=== PATIENT | female | born 1955 | race Caucasian/White ===

== ENCOUNTER 2017-01-19 18:57 | Inpatient (IN) | payer MEDICARE, OTHER ==
[~2017-01-19] VITALS: Ht 167.6 cm; Wt 88.1 kg
[~2017-01-19 18:57] MED LIST: METH40TA3 PO
[2017-01-19] MEDS ORDERED: METOCLOPRAMIDE 5 MG/ML, 2ML ONE (19:21)
[2017-01-19] MEDS ORDERED: MORPHINE SULFATE 4 MG/ML, 1ML ONE (19:21)
[2017-01-19] MEDS ORDERED: ONDANSETRON 2MG/ML, 2ML ONE ×2 (19:21→21:47)
[2017-01-19] MEDS ORDERED: MORPHINE SULFATE 4 MG/ML, 1ML IVPush PRN (19:30)
[2017-01-19] MEDS ORDERED: ONDANSETRON 2MG/ML, 2ML IVPush ONE (19:30)
[2017-01-19] MEDS ORDERED: METOCLOPRAMIDE 5 MG/ML, 2ML IVPush ONE (19:30)
[2017-01-19] MEDS ORDERED: SODIUM CHLORIDE 0.9% 1,000ML IVBOLUS ONE ×2 (19:30→20:30)
[2017-01-19] MEDS ORDERED: SODIUM CHLORIDE FLUSH 10ML SYR IVF ONE (19:30)
[2017-01-19 19:37] LABS: HEMATOCRIT 44.8 % (34.6-47.8); HEMOGLOBIN 14.7 g/dL (11.7-16.4); WHITE BLOOD COUNT 11.3 x10^3/uL (3.4-10)
[2017-01-19 19:49] LABS: ASPARTATE AMINO TRANSFERASE 21 U/L (15-37); BLOOD UREA NITROGEN 22 mg/dL (7-18)
[2017-01-19 19:54] LABS: IS PT STATUS REG ER OR PRE ER? YES
[2017-01-19] MEDS ORDERED: CLINDAMYCIN PMX 600MG/50ML 50 ML IVPB ONE (20:30)
[2017-01-19] MEDS ORDERED: CLINDAMYCIN PMX 600MG/50ML 50 ML ONE (20:34)
[2017-01-19] MEDS ORDERED: CEFTRIAXONE PMX 1GM/50ML 50 ML IV ONE (21:30)
[2017-01-19] MEDS ORDERED: CEFTRIAXONE PMX 1GM/50ML 50 ML ONE (21:48)
[2017-01-19] MEDS ORDERED: ENALAPRILAT 1.25 MG/ML, 2ML IVPush PRN (22:00)
[2017-01-19] MEDS ORDERED: VANCOMYCIN PER PHARMACY MC PRN (22:00)
[2017-01-19] MEDS: ONDANSETRON 2MG/ML, 2ML IVPush PRN (22:03)
[2017-01-19] MEDS: AMPICILLIN/SULBACTAM 3 GM in SODIUM CHLORIDE 0.9% 100 ML IV SCH (22:38)
[2017-01-19] MEDS: SODIUM CHLORIDE 0.9% 1,000 ML IV SCH (23:27)
[2017-01-19 23:37] VITALS: BP 145/78
[2017-01-20] MEDS: VANCOMYCIN 1,600 MG in SODIUM CHLORIDE 0.9% 250 ML IV SCH ×2 (00:04→18:24)
[2017-01-20] MEDS: ENOXAPARIN 40 MG/0.4 ML SQ SCH ×2 (00:04→22:30)
[2017-01-20 02:05] VITALS: BP 147/64
[2017-01-20] MEDS ORDERED: PHARMACOKINETIC MONITORING MC PRN (03:00)
[2017-01-20] MEDS ORDERED: ONDANSETRON 2MG/ML, 2ML IVPush ONE (03:00)
[2017-01-20] MEDS ORDERED: PHARMACOKINETIC CONSULTATION MC ONE (03:00)
[2017-01-20] MEDS: AMPICILLIN/SULBACTAM 3 GM in SODIUM CHLORIDE 0.9% 100 ML IV SCH ×4 (04:12→22:30)
[2017-01-20 04:39] LABS: HEMATOCRIT 42.1 % (34.6-47.8); HEMOGLOBIN 13.7 g/dL (11.7-16.4); WHITE BLOOD COUNT 8.4 x10^3/uL (3.4-10)
[2017-01-20 04:49] LABS: BLOOD UREA NITROGEN 15 mg/dL (7-18)
[2017-01-20] MEDS: ACETAMINOPHEN 325 MG TABLET PO PRN ×2 (06:37→14:25)
[2017-01-20 07:51] VITALS: BP 147/87
[2017-01-20] MEDS ORDERED: METH10OR3 PO (08:58)
[2017-01-20] MEDS ORDERED: METHADONE 40 MG TABLET.SOL PO SCH ×2 (09:00)
[2017-01-20] MEDS: LACTOBACILLUS 1GM/ PACKET PO SCH ×3 (10:17→20:18)
[2017-01-20] MEDS: SODIUM CHLORIDE 0.9% 1,000 ML IV SCH ×2 (10:18→20:18)
[2017-01-20] MEDS: ONDANSETRON 2MG/ML, 2ML IVPush PRN ×2 (14:25→20:18)
[2017-01-20 15:03] VITALS: BP 146/77
[2017-01-20 18:35] VITALS: BP 145/71
[2017-01-21 01:34] VITALS: BP 158/87
[2017-01-21] MEDS: ONDANSETRON 2MG/ML, 2ML IVPush PRN ×4 (02:10→22:46)
[2017-01-21] MEDS: AMPICILLIN/SULBACTAM 3 GM in SODIUM CHLORIDE 0.9% 100 ML IV SCH (04:08)
[2017-01-21] MEDS: SODIUM CHLORIDE 0.9% 1,000 ML IV SCH ×3 (04:08→23:24)
[2017-01-21] MEDS: METHADONE 40 MG TABLET.SOL PO SCH (04:30)
[2017-01-21 06:43] VITALS: BP 150/83
[2017-01-21] MEDS: LACTOBACILLUS 1GM/ PACKET PO SCH ×3 (08:22→21:00)
[2017-01-21 12:51] VITALS: BP 134/74
[2017-01-21] MEDS: AMOXICILLIN/CLAV 875-125MG TABLET PO SCH ×2 (13:15→23:24)
[2017-01-21 19:05] VITALS: BP 139/78
[2017-01-21] MEDS ORDERED: ENALAPRILAT 1.25 MG/ML, 2ML IVPush PRN (19:30)
[2017-01-21] MEDS: ENOXAPARIN 40 MG/0.4 ML SQ SCH (23:24)
[2017-01-22 01:08] VITALS: BP 176/77
[2017-01-22 04:36] LABS: HEMATOCRIT 40.4 % (34.6-47.8); HEMOGLOBIN 13.3 g/dL (11.7-16.4); WHITE BLOOD COUNT 6.8 x10^3/uL (3.4-10)
[2017-01-22] MEDS: METHADONE 40 MG TABLET.SOL PO SCH (04:43)
[2017-01-22] MEDS: ONDANSETRON 2MG/ML, 2ML IVPush PRN (04:44)
[2017-01-22 04:50] LABS: BLOOD UREA NITROGEN 4 mg/dL (7-18)
[2017-01-22 06:50] VITALS: BP 149/82
[2017-01-22] MEDS ORDERED: POTASSIUM CHLORIDE 20 MEQ TAB.ER.PRT PO ONE (07:00)
[2017-01-22] MEDS: SODIUM CHLORIDE 0.9% 1,000 ML IV SCH (07:30)
[2017-01-22] MEDS: LACTOBACILLUS 1GM/ PACKET PO SCH (07:38)
[2017-01-22] MEDS: AMOXICILLIN/CLAV 875-125MG TABLET PO SCH (07:38)
[2017-01-22] MEDS ORDERED: ONDA4TAB10 PO (07:57)
[2017-01-22] MEDS ORDERED: AMOX1TAB12 PO (07:57)
== END 2017-01-22 10:23 | disposition home or self-care (01) | DRG 603 ==
LOC: ED 21:30 → EDIP 21:31 → SUATTDRO 21:39 → 3NE 23:20 → DCLOUNGE 01-22 10:14
PROVIDERS: ADMIT Internal Medicine; ATTEND Internal Medicine
DX: L03.116 Cellulitis of left lower limb (principal); L03.115 Cellulitis of right lower limb; G89.29 Other chronic pain; K44.9 Diaphragmatic hernia without obstruction or gangrene; E86.0 Dehydration; F17.200 Nicotine dependence, unspecified, uncomplicated; N30.90 Cystitis, unspecified without hematuria; Z79.891 Long term (current) use of opiate analgesic; Z79.899 Other long term (current) drug therapy; R21 Rash and other nonspecific skin eruption
CPT/HCPCS: 36415; 71010; 80048; 80053; 81001; 83605; 83735; 84145; 84484; 85025; 87040; 87086; 93005; 93970; 96361; 96365; 96366; 96368; 96375; J0295; J0696; J1650; J2405; J3370; J2765; J7030; J7050

== ENCOUNTER 2017-09-09 05:17 | Emergency (ER) | payer MEDICARE ==
[~2017-09-09] VITALS: Ht 170.2 cm; Wt 86.3 kg
[~2017-09-09 05:17] MED LIST changes: +AMOX1TAB12 PO; +METH10OR3 PO; +ONDA4TAB10 PO
[2017-09-09] MEDS ORDERED: GABA600T2 PO (05:49)
[2017-09-09] MEDS ORDERED: ASPIRIN 81 MG TABLET CHEW PO ONE (06:00)
[2017-09-09] MEDS ORDERED: SODIUM CHLORIDE FLUSH 10ML SYR IVF ONE (06:00)
[2017-09-09] MEDS ORDERED: ONDANSETRON 2MG/ML, 2ML IVPush ONE (06:00)
[2017-09-09] MEDS ORDERED: ONDANSETRON 2MG/ML, 2ML ONE (06:03)
[2017-09-09 06:10] LABS: BASOPHILS # (AUTO) 0.06 x10^3/uL (0-0.1); BASOPHILS % (AUTO) 1 % (0-1); EOSINOPHILS # (AUTO) 0.08 x10^3/uL (0-0.4); EOSINOPHILS % (AUTO) 1 % (1-7); LYMPHOCYTES # (AUTO) 1.02 x10^3/uL (1-3.4); LYMPHOCYTES % (AUTO) 10 % (22-44); MD NO; MEAN CORPUSCULAR HEMOGLOBIN 32.2 pg (27.0-34.8); MEAN CORPUSCULAR VOLUME 97.7 fL (80-100); MEAN PLATELET VOLUME 9.8 fL (7.4-10.4); MONOCYTES % (AUTO) 2 % (2-9); NEUTROPHILS # (AUTO) 8.95 x10^3/uL (1.8-6.8); NEUTROPHILS % (AUTO) 87 % (42-75); PLATELET COUNT 243 x10^3/uL (130-400); RED BLOOD COUNT 4.95 x10^6/uL (3.82-5.3); RED CELL DISTRIBUTION WIDTH 12.9 % (9.6-15.2)
[2017-09-09] MEDS ORDERED: ASPIRIN 81 MG TABLET CHEW ONE (06:22)
[2017-09-09 06:24] LABS: ALANINE AMINOTRANSFERASE 29 U/L (12-78); ALBUMIN 4.2 g/dL (3.4-5.0); ANION GAP 10 mmol/L (5-15); CALCIUM 9.2 mg/dL (8.5-10.1); CHLORIDE 107 mmol/L (98-107); CREATININE 0.78 mg/dL (0.55-1.02)
[2017-09-09 06:28] LABS: ALKALINE PHOSPHATASE 99 U/L (45-117); BILIRUBIN,TOTAL 0.4 mg/dL (0.2-1.0); TROPONIN I < 0.015 ng/mL (0.000-0.045)
[2017-09-09 07:12] VITALS: BP 128/92
== END 2017-09-09 07:15 | disposition home or self-care (01) ==
LOC: ED 07:00
DX: R07.89 Other chest pain (principal); K21.0 Gastro-esophageal reflux disease with esophagitis; F17.210 Nicotine dependence, cigarettes, uncomplicated; G89.29 Other chronic pain; M79.606 Pain in leg, unspecified; Z90.710 Acquired absence of both cervix and uterus
CPT/HCPCS: 36415; 71045; 80053; 84484; 85025; 93005; 96374; 99285; J2405

== ENCOUNTER 2018-03-25 07:09 | Emergency (ER) | payer MEDICARE ==
[~2018-03-25] VITALS: Ht 167.6 cm; Wt 84.0 kg
[~2018-03-25 07:09] MED LIST changes: +GABA600T2 PO
[2018-03-25] MEDS ORDERED: ONDANSETRON 2MG/ML, 2ML ONE (07:45)
[2018-03-25] MEDS ORDERED: FAMOTIDINE 20 MG/2 ML ONE (07:46)
[2018-03-25] MEDS ORDERED: MORPHINE SULFATE 4 MG/ML, 1ML ONE (07:46)
[2018-03-25 07:53] LABS: MICROSCOPIC AUTO
[2018-03-25 07:56] LABS: CULTURE INDICATED? YES
[2018-03-25] MEDS ORDERED: ONDANSETRON 2MG/ML, 2ML IVPush ONE (08:00)
[2018-03-25] MEDS ORDERED: MORPHINE SULFATE 4 MG/ML, 1ML IVPush PRN (08:00)
[2018-03-25] MEDS ORDERED: SODIUM CHLORIDE 0.9% 1,000ML IVBOLUS ONE (08:00)
[2018-03-25] MEDS ORDERED: FAMOTIDINE 20 MG/2 ML IVP ONE (08:00)
[2018-03-25] MEDS ORDERED: SODIUM CHLORIDE FLUSH 10ML SYR IVF ONE (08:00)
[2018-03-25 08:04] VITALS: BP 122/50
[2018-03-25 08:05] LABS: BASOPHILS # (AUTO) 0.04 x10^3/uL (0-0.1); BASOPHILS % (AUTO) 1 % (0-1); EOSINOPHILS % (AUTO) 0 % (1-7); LYMPHOCYTES # (AUTO) 0.47 x10^3/uL (1-3.4); LYMPHOCYTES % (AUTO) 6 % (22-44); MD NO; MEAN CORPUSCULAR HEMOGLOBIN 34.5 pg (27.0-34.8); MEAN CORPUSCULAR HGB CONC 33.2 g/dL (32.4-35.8); MEAN CORPUSCULAR VOLUME 103.8 fL (80-100); MEAN PLATELET VOLUME 11.1 fL (7.4-10.4); MONOCYTES % (AUTO) 5 % (2-9); NEUTROPHILS # (AUTO) 7.54 x10^3/uL (1.8-6.8); NEUTROPHILS % (AUTO) 89 % (42-75); PLATELET COUNT 161 x10^3/uL (130-400); RED BLOOD COUNT 4.68 x10^6/uL (3.82-5.3); RED CELL DISTRIBUTION WIDTH 13.1 % (9.6-15.2)
[2018-03-25 08:17] LABS: CHLORIDE 99 mmol/L (98-107)
[2018-03-25 08:18] LABS: ALANINE AMINOTRANSFERASE 185 U/L (12-78); ALBUMIN 3.7 g/dL (3.4-5.0); ANION GAP 21 mmol/L (5-15); CALCIUM 9.2 mg/dL (8.5-10.1)
[2018-03-25 08:20] LABS: ALKALINE PHOSPHATASE 166 U/L (45-117); BILIRUBIN,TOTAL 1.8 mg/dL (0.2-1.0); CREATININE 0.74 mg/dL (0.55-1.02); TOTAL PROTEIN 8.5 g/dL (6.4-8.2)
[2018-03-25] MEDS ORDERED: METOCLOPRAMIDE 5 MG/ML, 2ML ONE (08:34)
[2018-03-25] MEDS ORDERED: METOCLOPRAMIDE 5 MG/ML, 2ML IVPush ONE (09:30)
== END 2018-03-25 09:32 | disposition left against medical advice (07) ==
LOC: ED 08:30
DX: R74.0 Nonspecific elevation of levels of transaminase and lactic acid dehydrogenase [LDH] (principal); K21.9 Gastro-esophageal reflux disease without esophagitis; G89.29 Other chronic pain
CPT/HCPCS: 36415; 80053; 81001; 83690; 85025; 87086; 96374; 96375; 99284; J2405; J2765; J7030; S0028; 87147

== ENCOUNTER 2018-04-02 04:47 | Emergency (ER) | payer MEDICARE ==
[~2018-04-02] VITALS: Ht 167.6 cm; Wt 82.7 kg
[2018-04-02] MEDS ORDERED: ONDANSETRON ODT 4 MG ONE (05:11)
[2018-04-02] MEDS ORDERED: ONDANSETRON ODT 4 MG PO ONE (05:30)
[2018-04-02] MEDS ORDERED: LORazepam 1MG TABLET PO ONE (05:30)
[2018-04-02 05:40] LABS: BASOPHILS # (AUTO) 0.02 x10^3/uL (0-0.1); BASOPHILS % (AUTO) 0 % (0-1); EOSINOPHILS # (AUTO) 0.05 x10^3/uL (0-0.4); EOSINOPHILS % (AUTO) 1 % (1-7); LYMPHOCYTES # (AUTO) 0.66 x10^3/uL (1-3.4); LYMPHOCYTES % (AUTO) 7 % (22-44); MD NO; MEAN CORPUSCULAR HEMOGLOBIN 34.6 pg (27.0-34.8); MEAN CORPUSCULAR HGB CONC 33.4 g/dL (32.4-35.8); MEAN CORPUSCULAR VOLUME 103.5 fL (80-100); MEAN PLATELET VOLUME 9.6 fL (7.4-10.4); MONOCYTES # (AUTO) 0.54 x10^3/uL (0.2-0.8); MONOCYTES % (AUTO) 6 % (2-9); NEUTROPHILS # (AUTO) 8.41 x10^3/uL (1.8-6.8); NEUTROPHILS % (AUTO) 87 % (42-75); PLATELET COUNT 203 x10^3/uL (130-400); RED BLOOD COUNT 4.35 x10^6/uL (3.82-5.3); RED CELL DISTRIBUTION WIDTH 13.1 % (9.6-15.2)
[2018-04-02 05:48] LABS: CHLORIDE 95 mmol/L (98-107)
[2018-04-02] MEDS ORDERED: SODIUM CHLORIDE 0.9% 1,000ML IVBOLUS ONE (06:00)
[2018-04-02 06:11] LABS: ALANINE AMINOTRANSFERASE 134 U/L (12-78); ALBUMIN 3.5 g/dL (3.4-5.0); ALKALINE PHOSPHATASE 141 U/L (45-117); ANION GAP 21 mmol/L (5-15); BILIRUBIN,TOTAL 1.6 mg/dL (0.2-1.0); CALCIUM 8.8 mg/dL (8.5-10.1); TOTAL PROTEIN 7.5 g/dL (6.4-8.2)
[2018-04-02] MEDS ORDERED: PROMETHAZINE 25 MG/ML, 1ML IM ONE (06:30)
[2018-04-02] MEDS ORDERED: PROMETHAZINE 25 MG/ML, 1ML ONE (06:36)
[2018-04-02] MEDS ORDERED: LORazepam 2 MG/ML, 1ML IVPush STA (07:01)
[2018-04-02 08:07] VITALS: BP 185/82
== END 2018-04-02 09:09 | disposition home or self-care (01) ==
LOC: ED 06:33
DX: K29.20 Alcoholic gastritis without bleeding (principal); K21.9 Gastro-esophageal reflux disease without esophagitis; F17.200 Nicotine dependence, unspecified, uncomplicated
CPT/HCPCS: 36415; 76700; 80053; 83690; 85025; 96360; 96372; 99285; J2550; J7030; Q0162

== ENCOUNTER 2018-04-10 06:46 | Emergency (ER) | payer MEDICARE ==
[~2018-04-10] VITALS: Ht 170.2 cm; Wt 104.0 kg
[2018-04-10] MEDS ORDERED: METOCLOPRAMIDE 5 MG/ML, 2ML IVPush ONE (07:00)
[2018-04-10] MEDS ORDERED: SODIUM CHLORIDE FLUSH 10ML SYR IVF ONE (07:00)
[2018-04-10] MEDS ORDERED: SODIUM CHLORIDE 0.9% 1,000ML IVBOLUS ONE (07:00)
[2018-04-10] MEDS ORDERED: METOCLOPRAMIDE 5 MG/ML, 2ML ONE (07:08)
[2018-04-10 07:33] LABS: ALANINE AMINOTRANSFERASE 107 U/L (12-78); ALBUMIN 3.4 g/dL (3.4-5.0); ANION GAP 20 mmol/L (5-15); CALCIUM 8.4 mg/dL (8.5-10.1); CHLORIDE 99 mmol/L (98-107); CREATININE 0.53 mg/dL (0.55-1.02)
[2018-04-10 07:35] LABS: ALKALINE PHOSPHATASE 128 U/L (45-117); BILIRUBIN,TOTAL 1.2 mg/dL (0.2-1.0); TOTAL PROTEIN 7.1 g/dL (6.4-8.2)
[2018-04-10 07:53] LABS: BASOPHILS # (AUTO) 0.05 x10^3/uL (0-0.1); BASOPHILS % (AUTO) 1 % (0-1); EOSINOPHILS # (AUTO) 0.01 x10^3/uL (0-0.4); EOSINOPHILS % (AUTO) 0 % (1-7); LYMPHOCYTES # (AUTO) 0.52 x10^3/uL (1-3.4); LYMPHOCYTES % (AUTO) 7 % (22-44); MD NO; MEAN CORPUSCULAR HEMOGLOBIN 34.1 pg (27.0-34.8); MEAN CORPUSCULAR HGB CONC 32.9 g/dL (32.4-35.8); MEAN CORPUSCULAR VOLUME 103.9 fL (80-100); MONOCYTES % (AUTO) 6 % (2-9); NEUTROPHILS # (AUTO) 6.18 x10^3/uL (1.8-6.8); NEUTROPHILS % (AUTO) 86 % (42-75); PLATELET COUNT 211 x10^3/uL (130-400); RED BLOOD COUNT 4.12 x10^6/uL (3.82-5.3); RED CELL DISTRIBUTION WIDTH 13.1 % (9.6-15.2)
[2018-04-10 09:12] VITALS: BP 126/57
== END 2018-04-10 09:16 | disposition home or self-care (01) ==
LOC: ED 08:30
DX: K70.10 Alcoholic hepatitis without ascites (principal); K29.20 Alcoholic gastritis without bleeding; F10.10 Alcohol abuse, uncomplicated; E86.0 Dehydration; R91.8 Other nonspecific abnormal finding of lung field; R91.1 Solitary pulmonary nodule; K21.9 Gastro-esophageal reflux disease without esophagitis; F17.200 Nicotine dependence, unspecified, uncomplicated; Z90.710 Acquired absence of both cervix and uterus
CPT/HCPCS: 36415; 74022; 80053; 83690; 85025; 93005; 96361; 96374; 99285; J2765; J7030

== ENCOUNTER 2018-04-16 04:37 | Emergency (ER) | payer MEDICARE ==
[~2018-04-16] VITALS: Ht 167.6 cm; Wt 70.0 kg
[2018-04-16] MEDS ORDERED: MAALOX/HYOSCYAMINE/LIDOCAINE 45 ML BTL ONE (04:47)
[2018-04-16] MEDS ORDERED: MAALOX/HYOSCYAMINE/LIDOCAINE 45 ML BTL PO ONE (05:00)
[2018-04-16 05:22] LABS: BASOPHILS # (AUTO) 0.12 x10^3/uL (0-0.1); BASOPHILS % (AUTO) 1 % (0-1); EOSINOPHILS # (AUTO) 0.13 x10^3/uL (0-0.4); EOSINOPHILS % (AUTO) 2 % (1-7); LYMPHOCYTES # (AUTO) 0.97 x10^3/uL (1-3.4); LYMPHOCYTES % (AUTO) 11 % (22-44); MD NO; MEAN CORPUSCULAR HEMOGLOBIN 34.4 pg (27.0-34.8); MEAN CORPUSCULAR HGB CONC 33.2 g/dL (32.4-35.8); MEAN CORPUSCULAR VOLUME 103.4 fL (80-100); MEAN PLATELET VOLUME 10.8 fL (7.4-10.4); MONOCYTES # (AUTO) 0.65 x10^3/uL (0.2-0.8); MONOCYTES % (AUTO) 7 % (2-9); NEUTROPHILS # (AUTO) 7.16 x10^3/uL (1.8-6.8); NEUTROPHILS % (AUTO) 79 % (42-75); PLATELET COUNT 181 x10^3/uL (130-400); RED BLOOD COUNT 4.23 x10^6/uL (3.82-5.3); RED CELL DISTRIBUTION WIDTH 13.5 % (9.6-15.2)
[2018-04-16 05:34] LABS: ALBUMIN 3.3 g/dL (3.4-5.0); ANION GAP 15 mmol/L (5-15); CALCIUM 8.2 mg/dL (8.5-10.1); CHLORIDE 101 mmol/L (98-107)
[2018-04-16 05:40] LABS: ALANINE AMINOTRANSFERASE 102 U/L (12-78); ALKALINE PHOSPHATASE 119 U/L (45-117); BILIRUBIN,TOTAL 1.1 mg/dL (0.2-1.0); CREATININE 0.59 mg/dL (0.55-1.02); TOTAL PROTEIN 6.9 g/dL (6.4-8.2); TROPONIN I < 0.015 ng/mL (0.000-0.045)
[2018-04-16] MEDS ORDERED: MAGNESIUM OXIDE 400 MG TABLET PO ONE (06:30)
[2018-04-16] MEDS ORDERED: POTASSIUM CHLORIDE 20 MEQ TAB.ER.PRT PO ONE (06:30)
[2018-04-16] MEDS ORDERED: POTASSIUM CHLORIDE 20 MEQ TAB.ER.PRT ONE (06:36)
[2018-04-16] MEDS ORDERED: MAGNESIUM OXIDE 400 MG TABLET ONE (06:36)
[2018-04-16 06:38] VITALS: BP 140/71
== END 2018-04-16 06:48 | disposition home or self-care (01) ==
LOC: ED 06:29
DX: R07.2 Precordial pain (principal); K29.20 Alcoholic gastritis without bleeding; F10.10 Alcohol abuse, uncomplicated; E87.6 Hypokalemia; K70.9 Alcoholic liver disease, unspecified
CPT/HCPCS: 36415; 71045; 80053; 83690; 84484; 85025; 93005; 99285

== ENCOUNTER 2018-04-30 04:39 | Emergency (ER) | payer MEDICARE ==
[~2018-04-30] VITALS: Ht 167.6 cm; Wt 70.0 kg
[2018-04-30] MEDS ORDERED: PROMETHAZINE 25 MG/ML, 1ML ONE (04:42)
[2018-04-30] MEDS ORDERED: FAMOTIDINE 20 MG/2 ML ONE (04:55)
[2018-04-30] MEDS ORDERED: LORazepam 2 MG/ML, 1ML IVPush ONE ×2 (05:00→06:30)
[2018-04-30] MEDS ORDERED: FAMOTIDINE 20 MG/2 ML IVP ONE (05:00)
[2018-04-30] MEDS ORDERED: SODIUM CHLORIDE FLUSH 10ML SYR IVF ONE (05:00)
[2018-04-30] MEDS ORDERED: SODIUM CHLORIDE 0.9% 1,000ML IVBOLUS ONE (05:00)
[2018-04-30] MEDS ORDERED: PROMETHAZINE 25 MG/ML, 1ML IM ONE (05:00)
[2018-04-30 05:13] LABS: BASOPHILS # (AUTO) 0.07 x10^3/uL (0-0.1); BASOPHILS % (AUTO) 1 % (0-1); EOSINOPHILS # (AUTO) 0.22 x10^3/uL (0-0.4); EOSINOPHILS % (AUTO) 4 % (1-7); LYMPHOCYTES # (AUTO) 0.93 x10^3/uL (1-3.4); LYMPHOCYTES % (AUTO) 15 % (22-44); MD NO; MEAN CORPUSCULAR HEMOGLOBIN 34.9 pg (27.0-34.8); MEAN CORPUSCULAR HGB CONC 33.9 g/dL (32.4-35.8); MEAN CORPUSCULAR VOLUME 102.9 fL (80-100); MEAN PLATELET VOLUME 10.4 fL (7.4-10.4); MONOCYTES # (AUTO) 0.69 x10^3/uL (0.2-0.8); MONOCYTES % (AUTO) 11 % (2-9); NEUTROPHILS # (AUTO) 4.42 x10^3/uL (1.8-6.8); NEUTROPHILS % (AUTO) 70 % (42-75); PLATELET COUNT 139 x10^3/uL (130-400); RED BLOOD COUNT 4.02 x10^6/uL (3.82-5.3); RED CELL DISTRIBUTION WIDTH 14.2 % (9.6-15.2)
[2018-04-30 05:26] LABS: ALBUMIN 3.1 g/dL (3.4-5.0); ANION GAP 17 mmol/L (5-15); CALCIUM 8.4 mg/dL (8.5-10.1); CHLORIDE 99 mmol/L (98-107)
[2018-04-30 05:29] LABS: ALANINE AMINOTRANSFERASE 153 U/L (12-78); ALKALINE PHOSPHATASE 165 U/L (45-117); BILIRUBIN,TOTAL 0.9 mg/dL (0.2-1.0); CREATININE 0.66 mg/dL (0.55-1.02); TOTAL PROTEIN 6.6 g/dL (6.4-8.2)
[2018-04-30] MEDS ORDERED: THIAMINE 100MG TABLET ONE (06:24)
[2018-04-30] MEDS ORDERED: LORazepam 2 MG/ML, 1ML ONE (06:25)
[2018-04-30 06:27] VITALS: BP 129/54
[2018-04-30] MEDS ORDERED: THIAMINE 100MG TABLET PO ONE (06:30)
== END 2018-04-30 07:09 | disposition home or self-care (01) ==
LOC: ED 04:59
DX: K29.20 Alcoholic gastritis without bleeding (principal); K70.10 Alcoholic hepatitis without ascites; F10.10 Alcohol abuse, uncomplicated; K21.9 Gastro-esophageal reflux disease without esophagitis
CPT/HCPCS: 36415; 74022; 80053; 80307; 83690; 85025; 93005; 96361; 96372; 96374; 96375; 99284; J2060; J2550; J3490; J7030

== ENCOUNTER 2018-05-10 21:28 | Emergency (ER) | payer MEDICARE ==
[~2018-05-10] VITALS: Ht 167.6 cm; Wt 92.6 kg
[2018-05-10] MEDS ORDERED: METHADONE (21:34)
[2018-05-10] MEDS ORDERED: ONDANSETRON ODT 4 MG ONE (21:51)
[2018-05-10 22:00] LABS: BASOPHILS # (AUTO) 0.04 x10^3/uL (0-0.1); BASOPHILS % (AUTO) 1 % (0-1); EOSINOPHILS # (AUTO) 0.18 x10^3/uL (0-0.4); EOSINOPHILS % (AUTO) 4 % (1-7); LYMPHOCYTES # (AUTO) 1.49 x10^3/uL (1-3.4); LYMPHOCYTES % (AUTO) 33 % (22-44); MD NO; MEAN CORPUSCULAR HEMOGLOBIN 35.2 pg (27.0-34.8); MEAN CORPUSCULAR HGB CONC 33.8 g/dL (32.4-35.8); MEAN CORPUSCULAR VOLUME 104.1 fL (80-100); MONOCYTES # (AUTO) 0.44 x10^3/uL (0.2-0.8); MONOCYTES % (AUTO) 10 % (2-9); NEUTROPHILS # (AUTO) 2.41 x10^3/uL (1.8-6.8); NEUTROPHILS % (AUTO) 53 % (42-75); PLATELET COUNT 166 x10^3/uL (130-400); RED BLOOD COUNT 3.72 x10^6/uL (3.82-5.3); RED CELL DISTRIBUTION WIDTH 16.2 % (9.6-15.2)
[2018-05-10] MEDS ORDERED: ONDANSETRON ODT 4 MG PO ONE (22:00)
[2018-05-10 22:11] LABS: ALANINE AMINOTRANSFERASE 112 U/L (12-78); ANION GAP 16 mmol/L (5-15); CALCIUM 7.7 mg/dL (8.5-10.1); CHLORIDE 103 mmol/L (98-107); CREATININE 0.65 mg/dL (0.55-1.02)
[2018-05-10 22:13] LABS: ALKALINE PHOSPHATASE 135 U/L (45-117); TOTAL PROTEIN 6.2 g/dL (6.4-8.2)
[2018-05-10 22:15] LABS: TROPONIN I < 0.015 ng/mL (0.000-0.045)
[2018-05-10 23:07] VITALS: BP 134/71
[2018-05-11] MEDS ORDERED: METH10OR3 PO (08:39)
== END 2018-05-10 23:09 | disposition home or self-care (01) ==
LOC: ED 22:50
DX: K29.20 Alcoholic gastritis without bleeding (principal); F10.120 Alcohol abuse with intoxication, uncomplicated; K21.9 Gastro-esophageal reflux disease without esophagitis
CPT/HCPCS: 36415; 80053; 80307; 83690; 84484; 85025; 99283; Q0162

== ENCOUNTER 2018-05-11 08:22 | Emergency (ER) | payer MEDICARE ==
[~2018-05-11] VITALS: Ht 167.6 cm; Wt 80.6 kg
[~2018-05-11 08:22] MED LIST changes: +METHADONE
[2018-05-11] MEDS ORDERED: METH10OR3 PO (08:39)
[2018-05-11] MEDS ORDERED: FAMOTIDINE 20 MG/2 ML IVP ONE (09:00)
[2018-05-11] MEDS ORDERED: MAALOX/HYOSCYAMINE/LIDOCAINE 45 ML BTL ONE (09:00)
[2018-05-11] MEDS ORDERED: SODIUM CHLORIDE FLUSH 10ML SYR IVF ONE (09:00)
[2018-05-11] MEDS ORDERED: MAALOX/HYOSCYAMINE/LIDOCAINE 45 ML BTL PO ONE (09:00)
[2018-05-11] MEDS ORDERED: FAMOTIDINE 20 MG/2 ML ONE (09:00)
[2018-05-11] MEDS ORDERED: SODIUM CHLORIDE 0.9% 1,000ML IVBOLUS ONE (09:00)
[2018-05-11] MEDS ORDERED: ONDANSETRON 2MG/ML, 2ML IVPush ONE (09:00)
[2018-05-11] MEDS ORDERED: ONDANSETRON 2MG/ML, 2ML ONE (09:00)
[2018-05-11 09:17] LABS: BASOPHILS # (AUTO) 0.05 x10^3/uL (0-0.1); BASOPHILS % (AUTO) 1 % (0-1); EOSINOPHILS # (AUTO) 0.02 x10^3/uL (0-0.4); EOSINOPHILS % (AUTO) 1 % (1-7); LYMPHOCYTES # (AUTO) 0.55 x10^3/uL (1-3.4); LYMPHOCYTES % (AUTO) 10 % (22-44); MD NO; MEAN CORPUSCULAR HEMOGLOBIN 34.3 pg (27.0-34.8); MEAN CORPUSCULAR HGB CONC 32.8 g/dL (32.4-35.8); MEAN CORPUSCULAR VOLUME 104.8 fL (80-100); MEAN PLATELET VOLUME 10.1 fL (7.4-10.4); MONOCYTES # (AUTO) 0.44 x10^3/uL (0.2-0.8); MONOCYTES % (AUTO) 8 % (2-9); NEUTROPHILS % (AUTO) 81 % (42-75); PLATELET COUNT 175 x10^3/uL (130-400); RED BLOOD COUNT 3.85 x10^6/uL (3.82-5.3); RED CELL DISTRIBUTION WIDTH 16.1 % (9.6-15.2)
[2018-05-11 09:30] LABS: ALBUMIN 3.1 g/dL (3.4-5.0); ANION GAP 16 mmol/L (5-15); CALCIUM 7.6 mg/dL (8.5-10.1); CHLORIDE 102 mmol/L (98-107)
[2018-05-11 09:33] LABS: ALANINE AMINOTRANSFERASE 136 U/L (12-78); ALKALINE PHOSPHATASE 142 U/L (45-117); BILIRUBIN,TOTAL 1.6 mg/dL (0.2-1.0); CREATININE 0.56 mg/dL (0.55-1.02); TOTAL PROTEIN 6.6 g/dL (6.4-8.2)
[2018-05-11] MEDS ORDERED: PROMETHAZINE 25 MG/ML, 1ML ONE (10:09)
[2018-05-11 10:16] VITALS: BP 113/62
[2018-05-11] MEDS ORDERED: PROMETHAZINE 25 MG/ML, 1ML IM ONE (10:30)
== END 2018-05-11 10:54 | disposition home or self-care (01) ==
LOC: ED 09:40
DX: K29.20 Alcoholic gastritis without bleeding (principal); F10.10 Alcohol abuse, uncomplicated; K21.9 Gastro-esophageal reflux disease without esophagitis
CPT/HCPCS: 36415; 80053; 83690; 85025; 93005; 96361; 96372; 96374; 96375; 99284; J2405; J2550; J3490; J7030

== ENCOUNTER 2018-05-19 11:52 | Emergency (ER) | payer MEDICARE ==
[~2018-05-19] VITALS: Ht 167.6 cm; Wt 90.0 kg
[2018-05-19] MEDS ORDERED: ONDANSETRON ODT 4 MG PO ONE (12:00)
[2018-05-19 12:30] LABS: BASOPHILS # (AUTO) 0.03 x10^3/uL (0-0.1); BASOPHILS % (AUTO) 1 % (0-1); EOSINOPHILS # (AUTO) 0.04 x10^3/uL (0-0.4); EOSINOPHILS % (AUTO) 1 % (1-7); LYMPHOCYTES # (AUTO) 0.79 x10^3/uL (1-3.4); LYMPHOCYTES % (AUTO) 14 % (22-44); MD NO; MEAN CORPUSCULAR HEMOGLOBIN 35.2 pg (27.0-34.8); MEAN CORPUSCULAR HGB CONC 33.2 g/dL (32.4-35.8); MEAN CORPUSCULAR VOLUME 106.2 fL (80-100); MEAN PLATELET VOLUME 10.5 fL (7.4-10.4); MONOCYTES # (AUTO) 0.48 x10^3/uL (0.2-0.8); MONOCYTES % (AUTO) 9 % (2-9); NEUTROPHILS # (AUTO) 4.31 x10^3/uL (1.8-6.8); NEUTROPHILS % (AUTO) 76 % (42-75); PLATELET COUNT 133 x10^3/uL (130-400); RED BLOOD COUNT 3.45 x10^6/uL (3.82-5.3); RED CELL DISTRIBUTION WIDTH 16.8 % (9.6-15.2)
[2018-05-19 12:40] LABS: ALBUMIN 3.1 g/dL (3.4-5.0); ANION GAP 13 mmol/L (5-15); CALCIUM 7.1 mg/dL (8.5-10.1); CHLORIDE 102 mmol/L (98-107); CREATININE 0.51 mg/dL (0.55-1.02)
[2018-05-19] MEDS ORDERED: ONDANSETRON ODT 4 MG ONE (12:52)
[2018-05-19 13:10] VITALS: BP 124/68
== END 2018-05-19 13:13 | disposition home or self-care (01) ==
LOC: ED 12:08
DX: F10.120 Alcohol abuse with intoxication, uncomplicated (principal); F19.939 Other psychoactive substance use, unspecified with withdrawal, unspecified
CPT/HCPCS: 36415; 80048; 82040; 85025; 99283

== ENCOUNTER 2018-05-22 01:59 | Emergency (ER) | payer MEDICARE ==
[~2018-05-22] VITALS: Ht 167.6 cm; Wt 82.0 kg
[2018-05-22 02:20] LABS: BASOPHILS # (AUTO) 0.06 x10^3/uL (0-0.1); BASOPHILS % (AUTO) 1 % (0-1); EOSINOPHILS # (AUTO) 0.08 x10^3/uL (0-0.4); EOSINOPHILS % (AUTO) 2 % (1-7); LYMPHOCYTES # (AUTO) 1.21 x10^3/uL (1-3.4); LYMPHOCYTES % (AUTO) 23 % (22-44); MD NO; MEAN CORPUSCULAR HEMOGLOBIN 35.9 pg (27.0-34.8); MEAN CORPUSCULAR HGB CONC 33.6 g/dL (32.4-35.8); MEAN CORPUSCULAR VOLUME 106.7 fL (80-100); MEAN PLATELET VOLUME 10.7 fL (7.4-10.4); MONOCYTES # (AUTO) 0.58 x10^3/uL (0.2-0.8); MONOCYTES % (AUTO) 11 % (2-9); NEUTROPHILS # (AUTO) 3.27 x10^3/uL (1.8-6.8); NEUTROPHILS % (AUTO) 63 % (42-75); PLATELET COUNT 130 x10^3/uL (130-400); RED BLOOD COUNT 3.28 x10^6/uL (3.82-5.3); RED CELL DISTRIBUTION WIDTH 18.1 % (9.6-15.2)
[2018-05-22 02:30] LABS: ALANINE AMINOTRANSFERASE 136 U/L (12-78); ANION GAP 17 mmol/L (5-15); CALCIUM 7.2 mg/dL (8.5-10.1); CHLORIDE 103 mmol/L (98-107)
[2018-05-22] MEDS ORDERED: SODIUM CHLORIDE FLUSH 10ML SYR IVF ONE (02:30)
[2018-05-22 02:33] LABS: ALKALINE PHOSPHATASE 165 U/L (45-117); BILIRUBIN,TOTAL 2.5 mg/dL (0.2-1.0); CREATININE 0.65 mg/dL (0.55-1.02); TOTAL PROTEIN 6.4 g/dL (6.4-8.2)
[2018-05-22 02:47] LABS: ACETAMINOPHEN < 2 mcg/mL (10-30); SALICYLATE LEVEL < 1.7 mg/dL (2.8-20.0)
[2018-05-22] MEDS ORDERED: PROMETHAZINE 25 MG/ML, 1ML ONE (03:08)
[2018-05-22] MEDS ORDERED: PROMETHAZINE 25 MG/ML, 1ML IM ONE (03:30)
[2018-05-22 05:07] VITALS: BP 140/70
== END 2018-05-22 05:16 | disposition home or self-care (01) ==
LOC: ED 02:07
DX: G31.2 Degeneration of nervous system due to alcohol (principal); Z72.9 Problem related to lifestyle, unspecified; F10.220 Alcohol dependence with intoxication, uncomplicated; F17.200 Nicotine dependence, unspecified, uncomplicated; K21.9 Gastro-esophageal reflux disease without esophagitis; Z90.710 Acquired absence of both cervix and uterus
CPT/HCPCS: 36415; 70450; 71045; 80053; 80307; 80329; 85025; 93005; 96372; 99284; J2550; G0480

== ENCOUNTER 2018-05-25 14:33 | Inpatient (IN) | payer MEDICARE ==
[~2018-05-25] VITALS: Ht 167.6 cm; Wt 85.8 kg
[2018-05-25] MEDS ORDERED: ASPIRIN 81 MG TABLET CHEW ONE (14:59)
[2018-05-25] MEDS ORDERED: ASPIRIN 81 MG TABLET CHEW PO ONE (15:00)
[2018-05-25] MEDS ORDERED: SODIUM CHLORIDE FLUSH 10ML SYR IVF ONE (15:00)
[2018-05-25 15:38] LABS: MEAN CORPUSCULAR HEMOGLOBIN 35.4 pg (27.0-34.8); MEAN CORPUSCULAR HGB CONC 31.3 g/dL (32.4-35.8); MEAN CORPUSCULAR VOLUME 112.8 fL (80-100); MEAN PLATELET VOLUME 11.1 fL (7.4-10.4); PLATELET COUNT 162 x10^3/uL (130-400); RED BLOOD COUNT 3.95 x10^6/uL (3.82-5.3); RED CELL DISTRIBUTION WIDTH 19.6 % (9.6-15.2)
[2018-05-25 15:51] LABS: ALANINE AMINOTRANSFERASE 191 U/L (12-78); ALBUMIN 3.2 g/dL (3.4-5.0); ANION GAP 33 mmol/L (5-15); CALCIUM 7.1 mg/dL (8.5-10.1); CHLORIDE 109 mmol/L (98-107); CREATININE 1.27 mg/dL (0.55-1.02)
[2018-05-25 15:55] LABS: ALKALINE PHOSPHATASE 235 U/L (45-117); BILIRUBIN,TOTAL 4.9 mg/dL (0.2-1.0); TOTAL PROTEIN 6.8 g/dL (6.4-8.2); TROPONIN I 0.026 ng/mL (0.000-0.045)
[2018-05-25 15:59] LABS: D-DIMER 5.5 ug/mlFEU (0.00-0.52); INTERNATIONAL NORMALIZED RATIO 1.18 (0.93-1.1); PROTHROMBIN TIME 12.4 Seconds (9.6-11.5)
[2018-05-25] MEDS ORDERED: ONDANSETRON ODT 4 MG PO ONE (16:00)
[2018-05-25] MEDS ORDERED: SODIUM CHLORIDE 0.9% 1,000ML IVBOLUS ONE ×2 (16:00→17:00)
[2018-05-25] MEDS ORDERED: ONDANSETRON ODT 4 MG ONE (16:01)
[2018-05-25 16:13] LABS: BASOPHILS % (AUTO) 0 % (0-1); EOSINOPHILS # (AUTO) 0.01 x10^3/uL (0-0.4); EOSINOPHILS % (AUTO) 0 % (1-7); LYMPHOCYTES # (AUTO) 0.72 x10^3/uL (1-3.4); LYMPHOCYTES % (AUTO) 6 % (22-44); MD SCAN; MONOCYTES # (AUTO) 0.48 x10^3/uL (0.2-0.8); MONOCYTES % (AUTO) 4 % (2-9); NEUTROPHILS % (AUTO) 90 % (42-75)
[2018-05-25] MEDS ORDERED: SODIUM CHLORIDE 0.9% 1,000 ML IV ONE (16:30)
[2018-05-25] MEDS ORDERED: OMNIPAQUE 350 MG/ML, 100ML BOTTLE ONE (16:39)
[2018-05-25] MEDS ORDERED: PIPERACILLIN/TAZO/PMX 3.375GM 50 ML IV ONE (17:00)
[2018-05-25 17:09] LABS: MICROSCOPIC AUTO
[2018-05-25] MEDS ORDERED: LORazepam 2 MG/ML, 1ML ONE (17:21)
[2018-05-25] MEDS ORDERED: LORazepam 2 MG/ML, 1ML IVPush ONE (17:30)
[2018-05-25] MEDS ORDERED: PIPERACILLIN/TAZO/PMX 3.375GM 50 ML ONE (17:42)
[2018-05-25] MEDS ORDERED: GABA800T2 PO (17:55)
[2018-05-25] MEDS ORDERED: THIAMINE 100 MG/ML, 2ML IM ONE (18:30)
[2018-05-25] MEDS ORDERED: BISACODYL 10 MG SUPP PR PRN (18:30)
[2018-05-25] MEDS ORDERED: POLYETHYLENE GLYCOL 17 GM PACKET PO PRN (18:30)
[2018-05-25] MEDS ORDERED: SODIUM CHLORIDE 0.45% 1,000 ML IV SCH (18:30)
[2018-05-25 18:40] LABS: O2 FLOW ROOM AIR L/min
[2018-05-25 19:00] LABS: ACETONE, SERUM Moderate(40mg/dL) mg/dL (Negative)
[2018-05-25 19:05] LABS: BILIRUBIN, DIRECT 3.4 mg/dL (0.1-0.2)
[2018-05-25 19:12] LABS: FOLATE LEVEL 4.4 ng/mL (3.1-17.5)
[2018-05-25 19:29] VITALS: BP 128/59
[2018-05-25 19:52] LABS: ANION GAP 28 mmol/L (5-15); CALCIUM 6.4 mg/dL (8.5-10.1); CHLORIDE 115 mmol/L (98-107); CREATININE 1.38 mg/dL (0.55-1.02)
[2018-05-25] MEDS ORDERED: SODIUM CHLORIDE 0.9% 1,000 ML IV SCH (20:00)
[2018-05-25] MEDS: GABAPENTIN 400 MG CAPSULE PO SCH (20:08)
[2018-05-25] MEDS: FOLIC ACID 1 MG TABLET PO SCH (20:09)
[2018-05-25] MEDS: HEPARIN 5,000 UNITS/ML, 1ML SQ SCH (20:09)
[2018-05-25] MEDS: LORazepam 2 MG/ML, 1ML IVPush PRN ×2 (20:09→23:53)
[2018-05-25] MEDS: NICOTINE 14MG/24 HR PATCH.TD24 TD SCH (20:10)
[2018-05-25 20:45] VITALS: BP 132/79
[2018-05-25] MEDS: CHLORDIAZEPOXIDE 25 MG CAPSULE PO PRN (20:56)
[2018-05-25 21:36] LABS: TROPONIN I 0.087 ng/mL (0.000-0.045)
[2018-05-25] MEDS: THIAMINE 100MG TABLET PO SCH (22:11)
[2018-05-25] MEDS: SODIUM BICARBONATE 8.4% 150 MEQ in DEXTROSE 5% 1,000 ML IV SCH (22:11)
[2018-05-25 22:24] VITALS: BP 128/59
[2018-05-25 23:01] VITALS: BP 137/68
[2018-05-25] MEDS ORDERED: CALCIUM GLUCONATE 4.6 MEQ in SODIUM CHLORIDE 0.9% 50 ML IV ONE (23:30)
[2018-05-25] MEDS ORDERED: MAGNESIUM SULFATE PMX 4GM/100M 100 ML IV ONE (23:30)
[2018-05-25] MEDS: PIPERACILLIN/TAZO/PMX 3.375GM 50 ML IV SCH (23:54)
[2018-05-26 02:00] VITALS: BP 149/85
[2018-05-26 02:15] VITALS: BP 128/63
[2018-05-26 02:34] LABS: ALANINE AMINOTRANSFERASE 193 U/L (12-78); ALBUMIN 2.5 g/dL (3.4-5.0); ANION GAP 22 mmol/L (5-15); CALCIUM 6.8 mg/dL (8.5-10.1); CHLORIDE 107 mmol/L (98-107); CREATININE 1.69 mg/dL (0.55-1.02)
[2018-05-26 02:40] LABS: MEAN CORPUSCULAR HEMOGLOBIN 35.2 pg (27.0-34.8); MEAN CORPUSCULAR HGB CONC 31.9 g/dL (32.4-35.8); MEAN CORPUSCULAR VOLUME 110.3 fL (80-100); MEAN PLATELET VOLUME 10.9 fL (7.4-10.4); PLATELET COUNT 83 x10^3/uL (130-400); RED BLOOD COUNT 3.34 x10^6/uL (3.82-5.3); RED CELL DISTRIBUTION WIDTH 18.9 % (9.6-15.2)
[2018-05-26 02:41] LABS: ALKALINE PHOSPHATASE 155 U/L (45-117); BILIRUBIN,TOTAL 7.4 mg/dL (0.2-1.0); MD YES; TOTAL PROTEIN 5.4 g/dL (6.4-8.2)
[2018-05-26 02:46] LABS: BAND#(MANUAL) 0.52 x10^3/uL; BANDS%(MANUAL) 10 % (0-7); LYMPH#(MANUAL) 0.21 x10^3/uL (1-3.4); LYMPHS% (MANUAL) 4 % (22-44); METAMYELOCYTES% (MANUAL) 2 % (0-1); MONOS#(MANUAL) 0.31 x10^3/uL (0.3-2.7); MONOS% (MANUAL) 6 % (2-9); NRBC % (MANUAL) 1 % (0-1); SEG#(MANUAL) 4.06 x10^3/uL (1.8-6.8); SEGS% (MANUAL) 78 % (42-75)
[2018-05-26 02:47] LABS: ANISOCYTOSIS 1+
[2018-05-26 02:52] LABS: <PLATELET ESTIMATE> DECREASED; BASOPHILLIC STIPPLING 1+; LARGE PLATELETS 1+; POLYCHROMASIA 1+
[2018-05-26] MEDS ORDERED: FLUMAZENIL 0.1 MG/1 ML, 5ML IVPush ONE (04:00)
[2018-05-26] MEDS: HEPARIN 5,000 UNITS/ML, 1ML SQ SCH ×3 (04:34→20:24)
[2018-05-26] MEDS: SODIUM BICARBONATE 8.4% 150 MEQ in DEXTROSE 5% 1,000 ML IV SCH ×3 (05:24→17:57)
[2018-05-26] MEDS: PIPERACILLIN/TAZO/PMX 3.375GM 50 ML IV SCH (05:54)
[2018-05-26] MEDS: SENNA/DOCUSATE TABLET PO SCH (09:00)
[2018-05-26 09:23] VITALS: BP 139/79
[2018-05-26] MEDS: MULTIVITAMINS/MINERALS TABLET PO SCH (10:16)
[2018-05-26] MEDS: CHLORDIAZEPOXIDE 25 MG CAPSULE PO PRN (10:16)
[2018-05-26] MEDS: ONDANSETRON 2MG/ML, 2ML IVPush PRN (10:16)
[2018-05-26] MEDS: FOLIC ACID 1 MG TABLET PO SCH (10:16)
[2018-05-26] MEDS: THIAMINE 100MG TABLET PO SCH ×2 (10:18→20:24)
[2018-05-26] MEDS: GABAPENTIN 400 MG CAPSULE PO SCH (10:18)
[2018-05-26] MEDS ORDERED: LORazepam 2 MG/ML, 1ML IVPush PRN (12:00)
[2018-05-26 12:34] LABS: TROPONIN I 0.221 ng/mL (0.000-0.045)
[2018-05-26 14:23] LABS: AMPHETAMINE SCREEN, URINE Negative (Negative); BARBITURATE SCREEN, URINE Negative (Negative); BENZODIAZEPINE SCREEN, URINE Positive (Negative); CANNABINOID SCREEN, URINE Negative (Negative); COCAINE SCREEN, URINE Negative (Negative); POTASSIUM,URINE RANDOM 77 mmol/L; SODIUM,URINE RANDOM 8 mmol/L
[2018-05-26 14:24] LABS: METHADONE SCREEN, URINE Positive (Negative); OPIATE SCREEN, URINE Negative (Negative)
[2018-05-26 14:27] LABS: CHLORIDE,URINE RANDOM < 10 mmol/L
[2018-05-26 14:55] VITALS: BP 124/55
[2018-05-26 18:12] LABS: TROPONIN I 0.184 ng/mL (0.000-0.045)
[2018-05-26 18:47] VITALS: BP 109/58
[2018-05-26] MEDS: CALCIUM CARBONATE 500 MG TAB.CHEW PO PRN (20:24)
[2018-05-26] MEDS: NICOTINE 14MG/24 HR PATCH.TD24 TD SCH (20:24)
[2018-05-26] MEDS ORDERED: CALCIUM CARBONATE 500 MG TAB.CHEW PO PRN (21:00)
[2018-05-27] VITALS (8 sets, daily range): BP systolic 92–115; BP diastolic 57–68
[2018-05-27] MEDS: SODIUM BICARBONATE 8.4% 150 MEQ in DEXTROSE 5% 1,000 ML IV SCH ×2 (01:27→08:16)
[2018-05-27] MEDS: HEPARIN 5,000 UNITS/ML, 1ML SQ SCH (04:28)
[2018-05-27 06:08] LABS: CALCIUM 7.5 mg/dL (8.5-10.1); CHLORIDE 101 mmol/L (98-107)
[2018-05-27 06:11] LABS: TROPONIN I 0.139 ng/mL (0.000-0.045)
[2018-05-27 06:19] LABS: ANION GAP 9 mmol/L (5-15)
[2018-05-27 06:55] LABS: MEAN CORPUSCULAR HGB CONC 33.4 g/dL (32.4-35.8); MEAN CORPUSCULAR VOLUME 107.6 fL (80-100); MEAN PLATELET VOLUME 10.2 fL (7.4-10.4); PLATELET COUNT 45 x10^3/uL (130-400); RED BLOOD COUNT 2.62 x10^6/uL (3.82-5.3); RED CELL DISTRIBUTION WIDTH 19.2 % (9.6-15.2)
[2018-05-27] MEDS ORDERED: POTASSIUM CHLORIDE 40 MEQ in SODIUM CHLORIDE 0.9% 500 ML IV ONE (07:00)
[2018-05-27] MEDS: ONDANSETRON 2MG/ML, 2ML IVPush PRN (07:10)
[2018-05-27 07:16] LABS: ANISOCYTOSIS 1+; BASOPHILS # (AUTO) 0.04 x10^3/uL (0-0.1); BASOPHILS % (AUTO) 1 % (0-1); EOSINOPHILS % (AUTO) 2 % (1-7); LYMPHOCYTES # (AUTO) 1.27 x10^3/uL (1-3.4); LYMPHOCYTES % (AUTO) 20 % (22-44); MD MORPH REVIEW ONLY; MONOCYTES % (AUTO) 3 % (2-9); NEUTROPHILS # (AUTO) 4.86 x10^3/uL (1.8-6.8); NEUTROPHILS % (AUTO) 75 % (42-75)
[2018-05-27 07:17] LABS: <PLATELET ESTIMATE> DECREASED; LARGE PLATELETS 1+; POLYCHROMASIA 1+; TARGET CELLS 1+
[2018-05-27] MEDS ORDERED: MAGNESIUM SULFATE PMX 2GM/50ML 50 ML IV ONE (07:30)
[2018-05-27 07:47] LABS: OCCULT BLOOD POSITIVE (NEGATIVE)
[2018-05-27] MEDS: SENNA/DOCUSATE TABLET PO SCH (07:50)
[2018-05-27] MEDS: MULTIVITAMINS/MINERALS TABLET PO SCH (09:00)
[2018-05-27] MEDS: FOLIC ACID 1 MG TABLET PO SCH (09:00)
[2018-05-27] MEDS: THIAMINE 100MG TABLET PO SCH ×2 (09:00→20:11)
[2018-05-27] MEDS ORDERED: REGADENOSON 0.4 MG/5 ML SYRINGE ONE (09:01)
[2018-05-27] MEDS ORDERED: ACETAMINOPHEN 325 MG TABLET PO ONE (09:30)
[2018-05-27] MEDS: PANTOPRAZOLE 40 MG IV IVPush SCH ×2 (11:17→23:05)
[2018-05-27] MEDS: D5%-0.45NACL+KCL 20MEQ 1,000 ML IV SCH (14:46)
[2018-05-27] MEDS: NICOTINE 14MG/24 HR PATCH.TD24 TD SCH (20:11)
[2018-05-27] MEDS: CALCIUM CARBONATE 500 MG TAB.CHEW PO PRN (20:12)
[2018-05-28 00:28] VITALS: BP 106/57
[2018-05-28] MEDS: D5%-0.45NACL+KCL 20MEQ 1,000 ML IV SCH ×2 (00:32→11:52)
[2018-05-28 04:00] VITALS: BP 131/71
[2018-05-28] MEDS: CALCIUM CARBONATE 500 MG TAB.CHEW PO PRN (04:11)
[2018-05-28 05:56] LABS: CALCIUM 7.4 mg/dL (8.5-10.1); CHLORIDE 104 mmol/L (98-107)
[2018-05-28 06:02] LABS: ALANINE AMINOTRANSFERASE 204 U/L (12-78); ALBUMIN 2.3 g/dL (3.4-5.0); ALKALINE PHOSPHATASE 151 U/L (45-117); ANION GAP 9 mmol/L (5-15); BILIRUBIN,TOTAL 5.4 mg/dL (0.2-1.0); CREATININE 0.85 mg/dL (0.55-1.02); TOTAL PROTEIN 4.9 g/dL (6.4-8.2)
[2018-05-28 06:13] LABS: BASOPHILS # (AUTO) 0.01 x10^3/uL (0-0.1); BASOPHILS % (AUTO) 0 % (0-1); EOSINOPHILS % (AUTO) 3 % (1-7); LYMPHOCYTES # (AUTO) 1.22 x10^3/uL (1-3.4); LYMPHOCYTES % (AUTO) 20 % (22-44); MD SCAN; MEAN PLATELET VOLUME 9.6 fL (7.4-10.4); MONOCYTES # (AUTO) 0.33 x10^3/uL (0.2-0.8); MONOCYTES % (AUTO) 6 % (2-9); NEUTROPHILS # (AUTO) 4.33 x10^3/uL (1.8-6.8); NEUTROPHILS % (AUTO) 71 % (42-75); PLATELET COUNT 65 x10^3/uL (130-400); RED BLOOD COUNT 2.38 x10^6/uL (3.82-5.3); RED CELL DISTRIBUTION WIDTH 18.7 % (9.6-15.2)
[2018-05-28 07:01] VITALS: BP 114/65
[2018-05-28] MEDS ORDERED: POTASSIUM CHLORIDE 40 MEQ in SODIUM CHLORIDE 0.9% 500 ML IV ONE (07:30)
[2018-05-28] MEDS ORDERED: MAGNESIUM SULFATE PMX 2GM/50ML 50 ML IV ONE (07:30)
[2018-05-28] MEDS: POTASSIUM CHLORIDE 20 MEQ TAB.ER.PRT PO SCH ×2 (07:59→16:18)
[2018-05-28] MEDS: SENNA/DOCUSATE TABLET PO SCH (07:59)
[2018-05-28] MEDS: FOLIC ACID 1 MG TABLET PO SCH (07:59)
[2018-05-28] MEDS: THIAMINE 100MG TABLET PO SCH ×2 (07:59→20:07)
[2018-05-28] MEDS: MULTIVITAMINS/MINERALS TABLET PO SCH (07:59)
[2018-05-28] MEDS: ONDANSETRON 2MG/ML, 2ML IVPush PRN (08:00)
[2018-05-28] MEDS: LIDODERM 5% PATCH TD SCH (10:49)
[2018-05-28 11:29] LABS: CLOSTRIDIUM DIFFICILE ANTIGEN POSITIVE
[2018-05-28 11:30] LABS: CLOSTRIDIUM DIFFICILE TOXIN NEGATIVE (Negative)
[2018-05-28] MEDS: PANTOPRAZOLE 40 MG IV IVPush SCH ×2 (11:52→23:40)
[2018-05-28] MEDS: VANCOMYCIN 50 MG/ML ORAL SUSP PO SCH ×3 (12:36→23:40)
[2018-05-28 12:40] VITALS: BP 127/72
[2018-05-28 13:29] LABS: TROPONIN I 0.039 ng/mL (0.000-0.045)
[2018-05-28] MEDS: GABAPENTIN 100 MG CAPSULE PO SCH ×2 (16:18→20:06)
[2018-05-28] MEDS ORDERED: LORazepam 1MG TABLET PO PRN (18:30)
[2018-05-28 19:59] VITALS: BP 119/68
[2018-05-28] MEDS: NICOTINE 14MG/24 HR PATCH.TD24 TD SCH (20:06)
[2018-05-29 00:05] VITALS: BP 143/78
[2018-05-29] MEDS: ONDANSETRON 2MG/ML, 2ML IVPush PRN (02:06)
[2018-05-29] MEDS ORDERED: HALOPERIDOL 5 MG/ML IV ONE (03:00)
[2018-05-29] MEDS: D5%-0.45NACL+KCL 20MEQ 1,000 ML IV SCH ×2 (03:37→17:17)
[2018-05-29 06:41] LABS: ALANINE AMINOTRANSFERASE 163 U/L (12-78); ALBUMIN 2.3 g/dL (3.4-5.0); ANION GAP 7 mmol/L (5-15); CALCIUM 7.8 mg/dL (8.5-10.1); CHLORIDE 110 mmol/L (98-107)
[2018-05-29 06:43] LABS: ALKALINE PHOSPHATASE 173 U/L (45-117); BILIRUBIN,TOTAL 4.9 mg/dL (0.2-1.0); TOTAL PROTEIN 5.1 g/dL (6.4-8.2)
[2018-05-29 07:02] VITALS: BP 140/76
[2018-05-29 07:22] LABS: BASOPHILS # (AUTO) 0.03 x10^3/uL (0-0.1); BASOPHILS % (AUTO) 0 % (0-1); EOSINOPHILS # (AUTO) 0.26 x10^3/uL (0-0.4); EOSINOPHILS % (AUTO) 4 % (1-7); LYMPHOCYTES # (AUTO) 1.38 x10^3/uL (1-3.4); LYMPHOCYTES % (AUTO) 19 % (22-44); MD SCAN; MEAN CORPUSCULAR HEMOGLOBIN 36.5 pg (27.0-34.8); MEAN CORPUSCULAR HGB CONC 33.1 g/dL (32.4-35.8); MEAN CORPUSCULAR VOLUME 110.2 fL (80-100); MEAN PLATELET VOLUME 11.1 fL (7.4-10.4); MONOCYTES # (AUTO) 0.58 x10^3/uL (0.2-0.8); MONOCYTES % (AUTO) 8 % (2-9); NEUTROPHILS # (AUTO) 5.11 x10^3/uL (1.8-6.8); NEUTROPHILS % (AUTO) 70 % (42-75); PLATELET COUNT 83 x10^3/uL (130-400); RED BLOOD COUNT 2.47 x10^6/uL (3.82-5.3); RED CELL DISTRIBUTION WIDTH 18.4 % (9.6-15.2)
[2018-05-29] MEDS: THIAMINE 100MG TABLET PO SCH ×2 (08:30→20:23)
[2018-05-29] MEDS: POTASSIUM CHLORIDE 20 MEQ TAB.ER.PRT PO SCH ×2 (08:30→16:37)
[2018-05-29] MEDS: FOLIC ACID 1 MG TABLET PO SCH (08:30)
[2018-05-29] MEDS: VANCOMYCIN 50 MG/ML ORAL SUSP PO SCH ×3 (08:30→20:23)
[2018-05-29] MEDS: GABAPENTIN 100 MG CAPSULE PO SCH (08:30)
[2018-05-29] MEDS: MULTIVITAMINS/MINERALS TABLET PO SCH (08:30)
[2018-05-29] MEDS: SENNA/DOCUSATE TABLET PO SCH (08:31)
[2018-05-29] MEDS: PANTOPRAZOLE 40 MG IV IVPush SCH (10:58)
[2018-05-29] MEDS: LIDODERM 5% PATCH TD SCH (10:59)
[2018-05-29] MEDS ORDERED: GLYCOPYRROLATE 0.2MG/1ML, 5ML ONE (13:13)
[2018-05-29] MEDS ORDERED: DEXAMETHASONE 4 MG/ML, 1ML ONE (13:13)
[2018-05-29] MEDS ORDERED: PROPOFOL 10 MG/ML, 20ML ONE (13:13)
[2018-05-29] MEDS ORDERED: ROCURONIUM 10MG/ML,5ML ONE (13:13)
[2018-05-29] MEDS ORDERED: MIDAZOLAM 1 MG/ML, 2ML ONE ×2 (13:13→13:21)
[2018-05-29] MEDS ORDERED: LIDOCAINE-MPF 2% ,5ML ONE (13:13)
[2018-05-29] MEDS ORDERED: ONDANSETRON 2MG/ML, 2ML IV PRN (14:00)
[2018-05-29] MEDS ORDERED: MORPHINE SULFATE 4 MG/ML, 1ML IVPush PRN (14:00)
[2018-05-29] MEDS ORDERED: hydrALAzine 20 MG/ML, 1ML IV PRN (14:00)
[2018-05-29] MEDS ORDERED: EPHEDRINE 50 MG/ML, 1ML IM PRN (14:00)
[2018-05-29] MEDS ORDERED: MIDAZOLAM 1 MG/ML, 2ML IV PRN (14:00)
[2018-05-29] MEDS ORDERED: MEPERIDINE/PF 25MG/0.5ML IVPush PRN (14:00)
[2018-05-29] MEDS ORDERED: HYDROmorphone 2 MG/ML, 1ML IVPush PRN (14:00)
[2018-05-29] MEDS ORDERED: ALBUTEROL/IPRATROPIUM 2.5MG/0.5MG, 3 ML NPPB PRN (14:00)
[2018-05-29] MEDS ORDERED: FENTANYL PF 100 MCG/2ML IV PRN (14:00)
[2018-05-29] MEDS ORDERED: LORazepam 2 MG/ML, 1ML IVPush PRN (14:00)
[2018-05-29 14:23] VITALS: BP 138/78
[2018-05-29 15:03] VITALS: BP 135/76
[2018-05-29] MEDS: GABAPENTIN 400 MG CAPSULE PO SCH ×2 (16:36→20:23)
[2018-05-29] MEDS: OLANZAPINE 2.5 MG TABLET PO SCH (16:37)
[2018-05-29] MEDS: OMEPRAZOLE 20 MG CAPSULE.DR PO SCH (16:37)
[2018-05-29 19:22] VITALS: BP 107/63
[2018-05-29] MEDS: NICOTINE 14MG/24 HR PATCH.TD24 TD SCH (20:23)
[2018-05-29] MEDS: LORazepam 2 MG/ML, 1ML IVPush PRN (20:23)
[2018-05-29 21:32] VITALS: BP 127/72
[2018-05-29] MEDS ORDERED: CHLORDIAZEPOXIDE 25 MG CAPSULE PO ONE (22:00)
[2018-05-30 02:55] VITALS: BP 104/64
[2018-05-30] MEDS: D5%-0.45NACL+KCL 20MEQ 1,000 ML IV SCH (03:48)
[2018-05-30] MEDS: VANCOMYCIN 50 MG/ML ORAL SUSP PO SCH ×4 (03:48→20:57)
[2018-05-30 05:10] LABS: ALANINE AMINOTRANSFERASE 130 U/L (12-78); ALBUMIN 2.3 g/dL (3.4-5.0); ANION GAP 10 mmol/L (5-15); CALCIUM 8.3 mg/dL (8.5-10.1); CHLORIDE 111 mmol/L (98-107); CREATININE 1.07 mg/dL (0.55-1.02)
[2018-05-30 05:12] LABS: ALKALINE PHOSPHATASE 190 U/L (45-117); TOTAL PROTEIN 5.2 g/dL (6.4-8.2)
[2018-05-30 07:45] VITALS: BP 108/69
[2018-05-30] MEDS: SENNA/DOCUSATE TABLET PO SCH (09:00)
[2018-05-30] MEDS: MULTIVITAMINS/MINERALS TABLET PO SCH (09:58)
[2018-05-30] MEDS: FOLIC ACID 1 MG TABLET PO SCH (09:58)
[2018-05-30] MEDS: GABAPENTIN 400 MG CAPSULE PO SCH ×3 (09:58→20:57)
[2018-05-30] MEDS: THIAMINE 100MG TABLET PO SCH ×2 (09:59→20:57)
[2018-05-30] MEDS: OMEPRAZOLE 20 MG CAPSULE.DR PO SCH ×2 (09:59→16:35)
[2018-05-30] MEDS: LIDODERM 5% PATCH TD SCH (09:59)
[2018-05-30] MEDS ORDERED: ACETAMINOPHEN 325 MG TABLET PO ONE (13:00)
[2018-05-30 13:19] VITALS: BP 112/72
[2018-05-30] MEDS: OLANZAPINE 2.5 MG TABLET PO SCH (16:36)
[2018-05-30 20:33] VITALS: BP 91/59
[2018-05-30] MEDS: NICOTINE 14MG/24 HR PATCH.TD24 TD SCH (20:56)
[2018-05-31 02:20] VITALS: BP 107/63
[2018-05-31] MEDS: VANCOMYCIN 50 MG/ML ORAL SUSP PO SCH ×4 (03:23→21:38)
[2018-05-31] MEDS: LORazepam 2 MG/ML, 1ML IVPush PRN (04:47)
[2018-05-31 06:08] LABS: ALBUMIN 2.5 g/dL (3.4-5.0); ANION GAP 10 mmol/L (5-15); CALCIUM 9.2 mg/dL (8.5-10.1); CHLORIDE 111 mmol/L (98-107)
[2018-05-31 06:12] LABS: ALANINE AMINOTRANSFERASE 127 U/L (12-78); ALKALINE PHOSPHATASE 233 U/L (45-117); BILIRUBIN,TOTAL 3.5 mg/dL (0.2-1.0); CREATININE 0.89 mg/dL (0.55-1.02); TOTAL PROTEIN 5.9 g/dL (6.4-8.2)
[2018-05-31 06:14] LABS: BASOPHILS # (AUTO) 0.04 x10^3/uL (0-0.1); BASOPHILS % (AUTO) 1 % (0-1); EOSINOPHILS # (AUTO) 0.26 x10^3/uL (0-0.4); EOSINOPHILS % (AUTO) 3 % (1-7); LYMPHOCYTES # (AUTO) 1.96 x10^3/uL (1-3.4); LYMPHOCYTES % (AUTO) 21 % (22-44); MD SCAN; MEAN CORPUSCULAR HEMOGLOBIN 37.1 pg (27.0-34.8); MEAN CORPUSCULAR HGB CONC 31.9 g/dL (32.4-35.8); MEAN CORPUSCULAR VOLUME 116.2 fL (80-100); MEAN PLATELET VOLUME 12.4 fL (7.4-10.4); MONOCYTES # (AUTO) 1.06 x10^3/uL (0.2-0.8); MONOCYTES % (AUTO) 12 % (2-9); NEUTROPHILS % (AUTO) 64 % (42-75); PLATELET COUNT 141 x10^3/uL (130-400); RED CELL DISTRIBUTION WIDTH 21.2 % (9.6-15.2)
[2018-05-31 07:33] VITALS: BP 107/62
[2018-05-31] MEDS: FOLIC ACID 1 MG TABLET PO SCH (08:10)
[2018-05-31] MEDS: MULTIVITAMINS/MINERALS TABLET PO SCH (08:10)
[2018-05-31] MEDS: GABAPENTIN 300 MG CAPSULE PO SCH ×3 (08:10→21:38)
[2018-05-31] MEDS: ACETAMINOPHEN 325 MG TABLET PO PRN ×2 (08:10→15:00)
[2018-05-31] MEDS: THIAMINE 100MG TABLET PO SCH ×2 (08:10→21:38)
[2018-05-31] MEDS: SENNA/DOCUSATE TABLET PO SCH (08:11)
[2018-05-31] MEDS: LIDODERM 5% PATCH TD SCH (08:11)
[2018-05-31] MEDS: OMEPRAZOLE 20 MG CAPSULE.DR PO SCH ×2 (08:16→16:13)
[2018-05-31 12:43] VITALS: BP 99/55
[2018-05-31] MEDS: OLANZAPINE 2.5 MG TABLET PO SCH (16:14)
[2018-05-31 20:21] VITALS: BP 120/66
[2018-05-31] MEDS: NICOTINE 14MG/24 HR PATCH.TD24 TD SCH (21:38)
[2018-06-01 00:03] VITALS: BP 110/67
[2018-06-01] MEDS: ACETAMINOPHEN 325 MG TABLET PO PRN ×3 (00:59→20:31)
[2018-06-01] MEDS: VANCOMYCIN 50 MG/ML ORAL SUSP PO SCH ×4 (03:47→21:50)
[2018-06-01 07:19] VITALS: BP 123/72
[2018-06-01] MEDS: MULTIVITAMINS/MINERALS TABLET PO SCH (09:40)
[2018-06-01] MEDS: GABAPENTIN 300 MG CAPSULE PO SCH ×3 (09:41→21:50)
[2018-06-01] MEDS: LIDODERM 5% PATCH TD SCH (09:41)
[2018-06-01] MEDS: FOLIC ACID 1 MG TABLET PO SCH (09:41)
[2018-06-01] MEDS: THIAMINE 100MG TABLET PO SCH ×2 (09:41→20:31)
[2018-06-01] MEDS: OMEPRAZOLE 20 MG CAPSULE.DR PO SCH ×2 (09:47→16:45)
[2018-06-01 13:57] VITALS: BP 98/57
[2018-06-01] MEDS: OLANZAPINE 5 MG TABLET PO SCH (16:45)
[2018-06-01 20:00] VITALS: BP 107/64
[2018-06-01] MEDS: NICOTINE 14MG/24 HR PATCH.TD24 TD SCH (20:31)
[2018-06-02 01:37] VITALS: BP 127/76
[2018-06-02] MEDS: VANCOMYCIN 50 MG/ML ORAL SUSP PO SCH ×4 (03:09→20:38)
[2018-06-02] MEDS: ACETAMINOPHEN 325 MG TABLET PO PRN ×3 (05:53→18:54)
[2018-06-02 07:59] VITALS: BP 121/73
[2018-06-02] MEDS: FOLIC ACID 1 MG TABLET PO SCH (08:47)
[2018-06-02] MEDS: OMEPRAZOLE 20 MG CAPSULE.DR PO SCH ×2 (08:47→17:00)
[2018-06-02] MEDS: THIAMINE 100MG TABLET PO SCH ×2 (08:47→20:38)
[2018-06-02] MEDS: MULTIVITAMINS/MINERALS TABLET PO SCH (08:48)
[2018-06-02] MEDS: GABAPENTIN 300 MG CAPSULE PO SCH ×3 (08:48→20:38)
[2018-06-02] MEDS: LIDODERM 5% PATCH TD SCH (08:49)
[2018-06-02 12:05] VITALS: BP 123/70
[2018-06-02] MEDS: OLANZAPINE 5 MG TABLET PO SCH (17:01)
[2018-06-02 18:48] VITALS: BP 99/63
[2018-06-02 19:21] VITALS: BP 122/77
[2018-06-02] MEDS: NICOTINE 14MG/24 HR PATCH.TD24 TD SCH (20:38)
[2018-06-03] MEDS: ACETAMINOPHEN 325 MG TABLET PO PRN (01:04)
[2018-06-03] MEDS: VANCOMYCIN 50 MG/ML ORAL SUSP PO SCH ×2 (02:39→08:54)
[2018-06-03 02:41] VITALS: BP 127/80
[2018-06-03 06:51] VITALS: BP 132/86
[2018-06-03] MEDS: FOLIC ACID 1 MG TABLET PO SCH (08:54)
[2018-06-03] MEDS: THIAMINE 100MG TABLET PO SCH (08:54)
[2018-06-03] MEDS: OMEPRAZOLE 20 MG CAPSULE.DR PO SCH (08:54)
[2018-06-03] MEDS: GABAPENTIN 300 MG CAPSULE PO SCH (08:54)
[2018-06-03] MEDS: MULTIVITAMINS/MINERALS TABLET PO SCH (08:54)
[2018-06-03] MEDS: LIDODERM 5% PATCH TD SCH (08:55)
[2018-06-03] MEDS ORDERED: VANC1VIA3 PO (10:35)
[2018-06-03] MEDS ORDERED: THIA100T67 PO (10:35)
[2018-06-03] MEDS ORDERED: GABA300C10 PO (10:35)
[2018-06-03] MEDS ORDERED: FOLI-17 PO (10:35)
[2018-06-03] MEDS ORDERED: OMEP-110 PO (10:35)
[2018-06-03] MEDS ORDERED: OLAN5TAB9 PO (10:35)
[2018-06-03] MEDS ORDERED: LIDO700A20 TD (10:35)
[2018-06-03 13:37] VITALS: BP 130/71
== END 2018-06-03 13:40 | DRG 368 ==
LOC: ED 14:59 → EDIP 17:24 → 4WST 18:43
PROVIDERS: ADMIT Family Medicine; ATTEND Internal Medicine
PROC: 0T9B70Z Drainage of Bladder with Drainage Device, Via Natural or Artificial Opening (ICD-10-PCS; 2018-05-25)
PROC: 30233R1 Transfusion of Nonautologous Platelets into Peripheral Vein, Percutaneous Approach (ICD-10-PCS; principal; 2018-05-27)
PROC: 0DB38ZX Excision of Lower Esophagus, Via Natural or Artificial Opening Endoscopic, Diagnostic (ICD-10-PCS; 2018-05-29)
PROC: 0DB68ZX Excision of Stomach, Via Natural or Artificial Opening Endoscopic, Diagnostic (ICD-10-PCS; 2018-05-29)
DX: K22.6 Gastro-esophageal laceration-hemorrhage syndrome (principal); N17.0 Acute kidney failure with tubular necrosis; E43 Unspecified severe protein-calorie malnutrition; G93.41 Metabolic encephalopathy; G93.40 Encephalopathy, unspecified; A04.72 Enterocolitis due to Clostridium difficile, not specified as recurrent; F11.23 Opioid dependence with withdrawal; D62 Acute posthemorrhagic anemia; K70.9 Alcoholic liver disease, unspecified; B18.2 Chronic viral hepatitis C; D69.6 Thrombocytopenia, unspecified; D75.89 Other specified diseases of blood and blood-forming organs; Z68.30 Body mass index [BMI] 30.0-30.9, adult; E87.6 Hypokalemia; F10.229 Alcohol dependence with intoxication, unspecified; F17.210 Nicotine dependence, cigarettes, uncomplicated; G62.9 Polyneuropathy, unspecified; G89.29 Other chronic pain; K21.9 Gastro-esophageal reflux disease without esophagitis; K44.9 Diaphragmatic hernia without obstruction or gangrene; K70.10 Alcoholic hepatitis without ascites; K70.30 Alcoholic cirrhosis of liver without ascites; K76.0 Fatty (change of) liver, not elsewhere classified; W18.30XA Fall on same level, unspecified, initial encounter; Y93.89 Activity, other specified; Y92.89 Other specified places as the place of occurrence of the external cause; Y99.8 Other external cause status; Z90.710 Acquired absence of both cervix and uterus; R55 Syncope and collapse; K22.11 Ulcer of esophagus with bleeding
CPT/HCPCS: 36415; 36430; 36600; 70450; 71045; 71275; 74181; 76700; 78452; 80048; 80053; 80074; 80307; 81001; 82010; 82140; 82248; 82272; 82436; 82570; 82607; 82746; 82800; 82803; 82962; 83605; 83735; 83880; 84100; 84132; 84133; 84300; 84484; 85014; 85018; 85025; 85379; 85610; 85730; 86850; 86900; 87040; 87070; 87205; 87324; 87521; 88305; 93005; 93017; 93306; 93880; 96361; 96365; G0378; J0610; J1100; J1644; J2250; J2405; J2543; J2704; J2785; J3370; J3411; J3480; J3490; J7070; Q0162; Q9967; A9502; C9113; C9898; J1630; J2060; J3475; J7030; J7040; P9035

== ENCOUNTER 2018-08-07 00:18 | Inpatient (IN) | payer MEDICARE ==
[~2018-08-07] VITALS: Ht 167.6 cm; Wt 78.7 kg
[~2018-08-07 00:18] MED LIST changes: +FOLI-17 PO; +GABA300C10 PO; -GABA600T2 PO; +GABA600T7 PO; +GABA800T5 PO; +LIDO700A20 TD; +OLAN5TAB9 PO; +OMEP-110 PO; +THIA100T67 PO; +VANC1VIA3 PO
--- NOTE | 2018-08-07 00:20 | NUR ---
BIB [facility] FOR CP THAT STARTED 4 HOURS PRIOR. PAIN IS DESCRIBED SHARP AND NONRADIATING, NOTHING WORSENS OR RELEIVES THE PAIN. DENIES SOB OR DIZZINESS. PT GIVEN ZOFRAN BY [facility], NEGATIVE EKG. PT STATES STOP USING METHADONE [address] PT PL;ACED ON MONITOR, EKGDONE AND LABS DRAWN. PT MEDICATED PER eMAR
[2018-08-07] MEDS ORDERED: ONDANSETRON 2MG/ML, 2ML IVPush ONE (00:30)
[2018-08-07] MEDS ORDERED: ASPIRIN 81 MG TABLET CHEW PO ONE (00:30)
[2018-08-07] MEDS ORDERED: MORPHINE SULFATE 4 MG/ML, 1ML IVPush PRN (00:30)
[2018-08-07] MEDS ORDERED: ASPIRIN 81 MG TABLET CHEW ONE (00:33)
[2018-08-07] MEDS ORDERED: MORPHINE SULFATE 4 MG/ML, 1ML ONE (00:33)
[2018-08-07] MEDS ORDERED: ONDANSETRON 2MG/ML, 2ML ONE (00:33)
[2018-08-07 00:50] LABS: BASOPHILS # (AUTO) 0.05 x10^3/uL (0-0.1); BASOPHILS % (AUTO) 1 % (0-1); EOSINOPHILS % (AUTO) 1 % (1-7); LYMPHOCYTES # (AUTO) 1.55 x10^3/uL (1-3.4); LYMPHOCYTES % (AUTO) 15 % (22-44); MD NO; MEAN CORPUSCULAR HEMOGLOBIN 30.9 pg (27.0-34.8); MEAN CORPUSCULAR HGB CONC 32.9 g/dL (32.4-35.8); MEAN CORPUSCULAR VOLUME 93.9 fL (80-100); MEAN PLATELET VOLUME 10.9 fL (7.4-10.4); MONOCYTES # (AUTO) 0.37 x10^3/uL (0.2-0.8); MONOCYTES % (AUTO) 4 % (2-9); NEUTROPHILS # (AUTO) 8.05 x10^3/uL (1.8-6.8); NEUTROPHILS % (AUTO) 80 % (42-75); PLATELET COUNT 270 x10^3/uL (130-400); RED BLOOD COUNT 5.18 x10^6/uL (3.82-5.3); RED CELL DISTRIBUTION WIDTH 14.8 % (9.6-15.2)
[2018-08-07 00:52] LABS: ALANINE AMINOTRANSFERASE 26 U/L (12-78); ALBUMIN 3.4 g/dL (3.4-5.0); ANION GAP 15 mmol/L (5-15); CALCIUM 8.9 mg/dL (8.5-10.1); CHLORIDE 99 mmol/L (98-107); CREATININE 0.71 mg/dL (0.55-1.02)
[2018-08-07 00:57] LABS: ALKALINE PHOSPHATASE 94 U/L (45-117); BILIRUBIN,TOTAL 0.4 mg/dL (0.2-1.0); TOTAL PROTEIN 7.4 g/dL (6.4-8.2); TROPONIN I < 0.015 ng/mL (0.000-0.045)
--- NOTE | 2018-08-07 01:09 | NUR ---
TASK RN: PT AMBULATED STEADILY TO BATHROOM TO PROVIDE UA. PT REPORTS SIGNIFICANT IMPROVEMENT IN PAIN, 5/10, AND NAUSEA WITH MEDICATIONS BP/SPO2/ECG MONITORING IN PLACE. NSR ON MONITOR. SPO2 >90% ON RA. UA COLLECTED AND SENT TO LAB.
[2018-08-07 01:28] LABS: AMPHETAMINE SCREEN, URINE Negative (Negative); BARBITURATE SCREEN, URINE Negative (Negative); BENZODIAZEPINE SCREEN, URINE Negative (Negative); CANNABINOID SCREEN, URINE Negative (Negative); COCAINE SCREEN, URINE Negative (Negative); METHADONE SCREEN, URINE Positive (Negative); OPIATE SCREEN, URINE Positive (Negative)
--- NOTE | 2018-08-07 02:11 | NUR ---
REPORT GIVEN TO GRETCHEN COOPER
[2018-08-07 02:30] VITALS: BP 131/79
[2018-08-07] MEDS ORDERED: ONDANSETRON 4 MG TABLET PO PRN (04:30)
[2018-08-07] MEDS ORDERED: ONDANSETRON 2MG/ML, 2ML IVPush PRN (05:00)
[2018-08-07] MEDS ORDERED: MAGNESIUM SULFATE PMX 2GM/50ML 50 ML IV ONE (05:00)
[2018-08-07] MEDS ORDERED: POLYETHYLENE GLYCOL 17 GM PACKET PO PRN (05:00)
[2018-08-07] MEDS ORDERED: hydrALAzine 20 MG/ML, 1ML IVPush PRN (05:00)
[2018-08-07] MEDS ORDERED: BISACODYL 10 MG SUPP PR PRN (05:00)
[2018-08-07] MEDS ORDERED: morphine SULFATE 10 MG/ML, 1ML IVPush PRN (05:00)
[2018-08-07] MEDS ORDERED: OXYcodone IR 5MG TABLET PO PRN (05:00)
[2018-08-07] MEDS ORDERED: DOCUSATE 100 MG CAPSULE PO PRN (05:00)
[2018-08-07] MEDS ORDERED: PROMETHAZINE 25 MG/ML, 1ML IM PRN (05:00)
[2018-08-07] MEDS ORDERED: GABAPENTIN 300 MG CAPSULE PO PRN (05:00)
[2018-08-07] MEDS: SODIUM CHLORIDE 0.9% 1,000 ML IV SCH ×2 (05:09→18:36)
[2018-08-07] MEDS: NICOTINE 7 MG/24 HR PATCH.TD24 TD SCH (05:11)
[2018-08-07] MEDS: PANTOPRAZOLE 40 MG IV IVPush SCH ×2 (05:11→16:43)
[2018-08-07 05:48] LABS: FREE T4 (FREE THYROXINE) 1.12 ng/dL (0.76-1.46)
[2018-08-07 05:50] LABS: HEMOGLOBIN A1C 5.4 % (4.2-6.3)
[2018-08-07 06:55] VITALS: BP 136/78
[2018-08-07] MEDS: SUCRALFATE 1 GM/10 ML UDC PO SCH ×4 (08:06→20:14)
[2018-08-07] MEDS: ONDANSETRON ODT 4 MG PO PRN ×2 (08:07→18:36)
[2018-08-07] MEDS ORDERED: OMNIPAQUE 350 MG/ML, 75ML BOTTLE ONE (09:20)
[2018-08-07 12:51] VITALS: BP 126/64
[2018-08-07 21:38] VITALS: BP 139/76
[2018-08-08 02:24] VITALS: BP 132/67
[2018-08-08 05:03] LABS: ALBUMIN 2.9 g/dL (3.4-5.0); ANION GAP 6 mmol/L (5-15); CALCIUM 8.6 mg/dL (8.5-10.1); CHLORIDE 102 mmol/L (98-107)
[2018-08-08 05:05] LABS: BASOPHILS # (AUTO) 0.04 x10^3/uL (0-0.1); BASOPHILS % (AUTO) 1 % (0-1); EOSINOPHILS # (AUTO) 0.16 x10^3/uL (0-0.4); EOSINOPHILS % (AUTO) 2 % (1-7); LYMPHOCYTES # (AUTO) 1.58 x10^3/uL (1-3.4); LYMPHOCYTES % (AUTO) 22 % (22-44); MD NO; MEAN CORPUSCULAR HEMOGLOBIN 30.7 pg (27.0-34.8); MEAN CORPUSCULAR HGB CONC 32.6 g/dL (32.4-35.8); MEAN PLATELET VOLUME 10.5 fL (7.4-10.4); MONOCYTES # (AUTO) 0.78 x10^3/uL (0.2-0.8); MONOCYTES % (AUTO) 11 % (2-9); NEUTROPHILS # (AUTO) 4.54 x10^3/uL (1.8-6.8); NEUTROPHILS % (AUTO) 64 % (42-75); PLATELET COUNT 178 x10^3/uL (130-400); RED BLOOD COUNT 4.38 x10^6/uL (3.82-5.3); RED CELL DISTRIBUTION WIDTH 14.4 % (9.6-15.2)
[2018-08-08 05:08] LABS: ALANINE AMINOTRANSFERASE 19 U/L (12-78); ALKALINE PHOSPHATASE 74 U/L (45-117); BILIRUBIN,TOTAL 0.5 mg/dL (0.2-1.0); CHOL/HDL RATIO 3.5; CHOLESTEROL, TOTAL 142 mg/dL (140-239); CREATININE 0.71 mg/dL (0.55-1.02); HDL CHOL % 29 % (28-40); HDL CHOLESTEROL (DIRECT) 41 mg/dL (40-60); LDL CHOLESTEROL,CALCULATED 84 mg/dL (54-169); TOTAL PROTEIN 5.8 g/dL (6.4-8.2); TRIGLYCERIDES 86 mg/dL (50-200); VLDL CHOLESTEROL 17 mg/dL (0-25)
[2018-08-08] MEDS: NICOTINE 7 MG/24 HR PATCH.TD24 TD SCH (05:37)
[2018-08-08] MEDS: SODIUM CHLORIDE 0.9% 1,000 ML IV SCH (05:37)
[2018-08-08] MEDS: PANTOPRAZOLE 40 MG IV IVPush SCH (05:37)
[2018-08-08 06:50] VITALS: BP 118/69
[2018-08-08] MEDS: SUCRALFATE 1 GM/10 ML UDC PO SCH ×2 (07:57→11:52)
[2018-08-08] MEDS ORDERED: MAGNESIUM SULFATE PMX 2GM/50ML 50 ML IV ONE (09:00)
[2018-08-08 12:50] VITALS: BP 138/82
[2018-08-08] MEDS ORDERED: OMEP-110 PO (14:05)
[2018-08-08] MEDS ORDERED: SUCR1ORA5 PO (14:05)
[2018-08-08] MEDS ORDERED: TRAM50TA2 PO (14:05)
== END 2018-08-08 15:25 | disposition home or self-care (01) | DRG 391 ==
LOC: ED 00:49 → EDIP 01:41 → 5SO 02:24 → 3NW 17:38 → DCLOUNGE 08-08 15:19
PROVIDERS: ADMIT Internal Medicine; ATTEND Internal Medicine
DX: K20.9 Esophagitis, unspecified (principal); K22.6 Gastro-esophageal laceration-hemorrhage syndrome; F11.20 Opioid dependence, uncomplicated; F10.10 Alcohol abuse, uncomplicated; E83.42 Hypomagnesemia; F17.210 Nicotine dependence, cigarettes, uncomplicated; G62.9 Polyneuropathy, unspecified; J44.9 Chronic obstructive pulmonary disease, unspecified; J98.4 Other disorders of lung; K29.70 Gastritis, unspecified, without bleeding; K44.9 Diaphragmatic hernia without obstruction or gangrene; K76.0 Fatty (change of) liver, not elsewhere classified; B19.20 Unspecified viral hepatitis C without hepatic coma; R91.1 Solitary pulmonary nodule; Z82.49 Family history of ischemic heart disease and other diseases of the circulatory system; Z87.19 Personal history of other diseases of the digestive system; Z90.710 Acquired absence of both cervix and uterus; Z91.19 Patient's noncompliance with other medical treatment and regimen
CPT/HCPCS: 36415; 71045; 71260; 80053; 80061; 80307; 83036; 83690; 83735; 83880; 84439; 84443; 84484; 85025; 93005; 96374; 96375; 99285; G0378; J2405; Q0162; Q9967; C9113; J3475; J7030

== ENCOUNTER 2018-08-09 21:32 | Emergency (ER) | payer MEDICARE ==
[~2018-08-09] VITALS: Ht 167.6 cm; Wt 80.0 kg
[~2018-08-09 21:32] MED LIST changes: +SUCR1ORA5 PO; +TRAM50TA2 PO
--- NOTE | 2018-08-09 22:23 | NUR ---
PT HERE FOR CHEST PAIN THAT RADIATES TO BACK. PT ALSO HAS RINGING IN EARS. VSS. PT STOPPED METHADONE 1 WEEK AGO. AT BEDSIDE
[2018-08-09] MEDS ORDERED: ASPIRIN 81 MG TABLET CHEW ONE (22:41)
--- NOTE | 2018-08-09 22:47 | NUR ---
PT MEDICATED. VSS. CALL LIGHT IN REACH
[2018-08-09] MEDS ORDERED: ASPIRIN 81 MG TABLET CHEW PO ONE (23:00)
[2018-08-09 23:18] LABS: BASOPHILS # (AUTO) 0.06 x10^3/uL (0-0.1); BASOPHILS % (AUTO) 1 % (0-1); EOSINOPHILS # (AUTO) 0.21 x10^3/uL (0-0.4); EOSINOPHILS % (AUTO) 3 % (1-7); LYMPHOCYTES # (AUTO) 1.79 x10^3/uL (1-3.4); LYMPHOCYTES % (AUTO) 22 % (22-44); MD NO; MEAN CORPUSCULAR HEMOGLOBIN 31.2 pg (27.0-34.8); MEAN CORPUSCULAR HGB CONC 33.3 g/dL (32.4-35.8); MEAN CORPUSCULAR VOLUME 93.5 fL (80-100); MEAN PLATELET VOLUME 11.1 fL (7.4-10.4); MONOCYTES # (AUTO) 0.69 x10^3/uL (0.2-0.8); MONOCYTES % (AUTO) 9 % (2-9); NEUTROPHILS # (AUTO) 5.31 x10^3/uL (1.8-6.8); NEUTROPHILS % (AUTO) 66 % (42-75); PLATELET COUNT 199 x10^3/uL (130-400); RED CELL DISTRIBUTION WIDTH 14.3 % (9.6-15.2)
[2018-08-09 23:27] LABS: ALBUMIN 3.4 g/dL (3.4-5.0); ANION GAP 6 mmol/L (5-15); CALCIUM 9.1 mg/dL (8.5-10.1); CHLORIDE 104 mmol/L (98-107)
[2018-08-09 23:33] LABS: ALANINE AMINOTRANSFERASE 19 U/L (12-78); ALKALINE PHOSPHATASE 88 U/L (45-117); BILIRUBIN,TOTAL 0.4 mg/dL (0.2-1.0); CREATININE 0.66 mg/dL (0.55-1.02); TOTAL PROTEIN 6.7 g/dL (6.4-8.2); TROPONIN I < 0.015 ng/mL (0.000-0.045)
[2018-08-10] VITALS: BP 126/57
--- NOTE | 2018-08-10 00:13 | NUR ---
PT RESTING WITH NO NEEDS AT THIS TIME. CALL LIGHT IN REACH
--- NOTE | 2018-08-10 00:51 | NUR ---
Patient given discharge instructions and they have confirmed that they understand the instructions. Patient ambulatory with steady gait.
== END 2018-08-10 00:54 | disposition home or self-care (01) ==
LOC: ED 22:10
DX: J15.9 Unspecified bacterial pneumonia (principal); R07.89 Other chest pain
CPT/HCPCS: 36415; 71045; 80053; 84484; 85025; 93005; 99284

== ENCOUNTER 2018-09-18 20:50 | Emergency (ER) | payer MEDICARE ==
[~2018-09-18] VITALS: Ht 152.4 cm; Wt 66.7 kg
[2018-09-18] MEDS ORDERED: ROBAXIN (21:19)
[2018-09-18] MEDS ORDERED: VISTARIL (21:19)
[2018-09-18] MEDS ORDERED: GABAPENTIN (21:19)
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
[2018-09-18 21:27] LABS: MICROSCOPIC NOT IND
[2018-09-18 21:38] LABS: AMPHETAMINE SCREEN, URINE Negative (Negative); BARBITURATE SCREEN, URINE Negative (Negative); BENZODIAZEPINE SCREEN, URINE Negative (Negative); CANNABINOID SCREEN, URINE Negative (Negative); COCAINE SCREEN, URINE Negative (Negative); METHADONE SCREEN, URINE Negative (Negative); OPIATE SCREEN, URINE Negative (Negative)
[2018-09-18 21:41] LABS: CULTURE INDICATED? NO
[2018-09-18 21:55] LABS: BASOPHILS # (AUTO) 0.06 x10^3/uL (0-0.1); BASOPHILS % (AUTO) 1 % (0-1); EOSINOPHILS # (AUTO) 0.33 x10^3/uL (0-0.4); EOSINOPHILS % (AUTO) 4 % (1-7); LYMPHOCYTES # (AUTO) 3.21 x10^3/uL (1-3.4); LYMPHOCYTES % (AUTO) 36 % (22-44); MD NO; MEAN CORPUSCULAR HEMOGLOBIN 28.8 pg (27.0-34.8); MEAN CORPUSCULAR HGB CONC 32.7 g/dL (32.4-35.8); MEAN PLATELET VOLUME 10.1 fL (7.4-10.4); MONOCYTES # (AUTO) 0.65 x10^3/uL (0.2-0.8); MONOCYTES % (AUTO) 7 % (2-9); NEUTROPHILS # (AUTO) 4.57 x10^3/uL (1.8-6.8); NEUTROPHILS % (AUTO) 52 % (42-75); PLATELET COUNT 266 x10^3/uL (130-400); RED CELL DISTRIBUTION WIDTH 13.9 % (9.6-15.2)
[2018-09-18 22:01] LABS: ALBUMIN 3.3 g/dL (3.4-5.0); ANION GAP 8 mmol/L (5-15); CALCIUM 8.8 mg/dL (8.5-10.1); CHLORIDE 110 mmol/L (98-107)
[2018-09-18 22:14] LABS: ALANINE AMINOTRANSFERASE 28 U/L (12-78); ALKALINE PHOSPHATASE 127 U/L (45-117); BILIRUBIN,TOTAL 0.2 mg/dL (0.2-1.0); CREATININE 0.75 mg/dL (0.55-1.02); TOTAL PROTEIN 6.8 g/dL (6.4-8.2)
--- NOTE | 2018-09-18 22:18 | NUR ---
PT SLEEPING AT THIS TIME. VSS.
[2018-09-18 22:21] LABS: SALICYLATE LEVEL < 1.7 mg/dL (2.8-20.0)
[2018-09-18 22:22] LABS: ACETAMINOPHEN < 2 mcg/mL (10-30)
--- NOTE | 2018-09-18 22:49 | NUR ---
SBAR report received from RN, Nishi. Pt sleeping on [facility].
--- NOTE | 2018-09-19 00:10 | NUR ---
Pt sleeping on gurney. Sitter outside of room for pt safety.
--- NOTE | 2018-09-19 01:20 | NUR ---
RN in to breathalyze pt.
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
[2018-09-19] MEDS ORDERED: ZIPRASIDONE 20 MG INJ IM ONE ×2 (02:23→02:30)
--- NOTE | 2018-09-19 02:25 | NUR ---
Ariana to [facility] to attempt to deescalate pt. Pt almost immediately very cooperative with security, stating "I'm sorry. I'm not drunk, if I were drunk I wouldn't be this mean." Pt stating, to security, I don't have a problem with you, I have a problem with everyone of these nurses." Elly order received verbally and this RN to administer when ready.
--- NOTE | 2018-09-19 02:35 | NUR ---
Pt medicated per MAR, with security at bedside.
--- NOTE | 2018-09-19 03:01 | NUR ---
Report given to RNLeonardo.
--- NOTE | 2018-09-19 03:02 | NUR ---
Received report from GRETCHEN Mead.
--- NOTE | 2018-09-19 05:10 | NUR ---
patient awake, went to bathroom with steady gait. breathalyzer 0.036
--- NOTE | 2018-09-19 07:00 | NUR ---
SBAR HAND-OFF REPORT RECEIVED FROM GRETCHEN NELSON. ASSUMING CARE OF PATIENT.
--- NOTE | 2018-09-19 07:20 | NUR ---
PATIENT'S BREATHYLIZER IS NOW 0.00. ROBOT IN ROOM.
--- NOTE | 2018-09-19 08:29 | NUR ---
BRIEF SBAR GIVEN TO SOC , DR. BAKER.
--- NOTE | 2018-09-19 09:03 | NUR ---
SOC PSYCHIATRIST, DR. BAKER, STATES THAT PATIENT MAY BE DISCHARGED HOME WITH LOCAL AA MEETING INFO.
--- NOTE | 2018-09-19 09:58 | NUR ---
DISCHARGE TEACHING REVIEWED WITH PATIENT WITH EMPHSIS ON ALCOHOLICS ANONYMOUS. SHE STATES SHE IS READY TO QUIT DRINKING AND WILL GO. SHE IS "EMBARRASSED" ABOUT HER BEHAVIOR AND READY FOR CHANGE ACCORDING TO HER. ENCOURAGED HER TO FOLLOW THROUGH FO RTHE SAKE OF HER HEALTH. SHOWS UNDERSTANDING. PATIENT IS NOT SUICIDAL. BELONGINGS RETURNED. D/C TEACHING REVIEWED.
[2018-09-19 10:03] VITALS: BP 132/78
== END 2018-09-19 10:05 | disposition home or self-care (01) ==
LOC: ED 21:23
DX: F32.3 Major depressive disorder, single episode, severe with psychotic features (principal); F10.129 Alcohol abuse with intoxication, unspecified; F11.129 Opioid abuse with intoxication, unspecified; Z90.710 Acquired absence of both cervix and uterus; F17.210 Nicotine dependence, cigarettes, uncomplicated
CPT/HCPCS: 36415; 80053; 80307; 80329; 81003; 84443; 85025; 96372; 99284; J3486; G0480

== ENCOUNTER 2018-10-02 08:49 | Emergency (ER) | payer MEDICARE ==
[~2018-10-02] VITALS: Ht 167.6 cm; Wt 68.0 kg
[~2018-10-02 08:49] MED LIST changes: +GABAPENTIN; +METH10OR12 PO; -METH10OR3 PO; +ROBAXIN; +VISTARIL
--- NOTE | 2018-10-02 08:53 | NUR ---
Pt presents to ED with c/o rectal bleeding with black tarry stools for 5 days. Pt has history of ETOH abuse and drinks "1/4 pint" daily. Pt is currently "out of money, and concerned about withdrawal." NADN. Pt ambulates with steady gait and balance. Skin is pink, warm, dry. Pt is AOX4.
[2018-10-02 09:46] LABS: INTERNATIONAL NORMALIZED RATIO 1.01 (0.93-1.1); PROTHROMBIN TIME 10.6 Seconds (9.6-11.5)
[2018-10-02 09:50] LABS: ALANINE AMINOTRANSFERASE 19 U/L (12-78); ALBUMIN 3.1 g/dL (3.4-5.0); ANION GAP 6 mmol/L (5-15); CALCIUM 8.7 mg/dL (8.5-10.1); CHLORIDE 105 mmol/L (98-107)
[2018-10-02 09:53] LABS: ALKALINE PHOSPHATASE 112 U/L (45-117); BILIRUBIN,TOTAL 1.5 mg/dL (0.2-1.0); CREATININE 0.74 mg/dL (0.55-1.02); TOTAL PROTEIN 6.7 g/dL (6.4-8.2)
--- NOTE | 2018-10-02 10:08 | NUR ---
Pt c/o "maggots under my toenails, in my ears..." No insect infestation observed. No bed bugs observed. Pt has ecchymosis to right great toenail. ED aware.
[2018-10-02] MEDS ORDERED: CHLORDIAZEPOXIDE 10 MG CAPSULE ONE (10:09)
[2018-10-02] MEDS ORDERED: CHLORDIAZEPOXIDE 10 MG CAPSULE PO PRN (10:30)
--- NOTE | 2018-10-02 11:11 | NUR ---
Pt transported [place].
[2018-10-02 11:18] LABS: BASOPHILS # (AUTO) 0.04 x10^3/uL (0-0.1); BASOPHILS % (AUTO) 1 % (0-1); EOSINOPHILS # (AUTO) 0.06 x10^3/uL (0-0.4); EOSINOPHILS % (AUTO) 1 % (1-7); LYMPHOCYTES # (AUTO) 1.43 x10^3/uL (1-3.4); LYMPHOCYTES % (AUTO) 24 % (22-44); MD NO; MEAN CORPUSCULAR HEMOGLOBIN 29.8 pg (27.0-34.8); MEAN CORPUSCULAR HGB CONC 33.6 g/dL (32.4-35.8); MEAN CORPUSCULAR VOLUME 88.8 fL (80-100); MEAN PLATELET VOLUME 9.8 fL (7.4-10.4); MONOCYTES # (AUTO) 0.55 x10^3/uL (0.2-0.8); MONOCYTES % (AUTO) 9 % (2-9); NEUTROPHILS # (AUTO) 3.78 x10^3/uL (1.8-6.8); NEUTROPHILS % (AUTO) 65 % (42-75); PLATELET COUNT 197 x10^3/uL (130-400); RED BLOOD COUNT 4.67 x10^6/uL (3.82-5.3); RED CELL DISTRIBUTION WIDTH 16.8 % (9.6-15.2)
[2018-10-02] MEDS ORDERED: OMNIPAQUE 350 MG/ML, 100ML BOTTLE ONE (11:33)
[2018-10-02 11:44] VITALS: BP 126/70
--- NOTE | 2018-10-02 11:44 | NUR ---
Provided pt crackers and water. Pt appreciative. OCHOA. Pt requests a cab voucher for discharge.
[2018-10-02 12:21] LABS: MICROSCOPIC NOT IND
[2018-10-02 12:28] LABS: CULTURE INDICATED? NO
--- NOTE | 2018-10-02 13:15 | NUR ---
Patient given discharge instructions and they have confirmed that they understand the instructions. Patient ambulatory with steady gait. Pt left with discharge paperwork, prescription, and all personal belongings, taxi voucher, and RX assistance paperwork.
== END 2018-10-02 13:18 | disposition home or self-care (01) ==
LOC: ED 10:13
DX: K62.5 Hemorrhage of anus and rectum (principal); R10.32 Left lower quadrant pain; Z90.710 Acquired absence of both cervix and uterus; K21.9 Gastro-esophageal reflux disease without esophagitis
CPT/HCPCS: 36415; 74177; 80053; 81003; 83690; 85025; 85610; 85730; 99284; Q9967

== ENCOUNTER 2019-01-21 13:13 | Emergency (ER) | payer MEDICARE ==
[~2019-01-21] VITALS: Ht 167.6 cm; Wt 59.1 kg
[~2019-01-21 13:13] MED LIST changes: +ACET325T14 PO; +LEVO750T6 PO; +NICO-487 TD
--- NOTE | 2019-01-21 13:32 | NUR ---
PT BIB [facility] AFTER CALLING STATING SHE IS FEELING NAUSEAS AND "POISONED." STATES SHE USED HEROIN THIS MORNING AT 0300. PT AMBULATED TO BATHROOM TO PROVIDE URINE SAMPLE WITH STEADY GAIT.PT BIB [facility] AFTER CALLING STATING SHE IS FEELING NAUSEAS AND "POISONED." STATES SHE USED HEROIN THIS MORNING AT 0300. NADN. HIDALGO WAS AT BEDSIDE TO ASSESS PT WHO CRIED WHILE SHE SPOKE WITH HIM. PT NOW ASLEEP ON ZEN. VSS. CALL LIGHT IN REACH.
[2019-01-21] MEDS ORDERED: ONDANSETRON 2MG/ML, 2ML ONE (13:45)
[2019-01-21] MEDS ORDERED: ONDANSETRON 2MG/ML, 2ML IVPush ONE (14:00)
[2019-01-21 14:05] LABS: BASOPHILS # (AUTO) 0.09 x10^3/uL (0-0.1); BASOPHILS % (AUTO) 1 % (0-1); EOSINOPHILS # (AUTO) 0.23 x10^3/uL (0-0.4); EOSINOPHILS % (AUTO) 3 % (1-7); LYMPHOCYTES # (AUTO) 1.43 x10^3/uL (1-3.4); LYMPHOCYTES % (AUTO) 15 % (22-44); MD NO; MEAN CORPUSCULAR HEMOGLOBIN 30.4 pg (27.0-34.8); MEAN CORPUSCULAR HGB CONC 32.2 g/dL (32.4-35.8); MEAN CORPUSCULAR VOLUME 94.5 fL (80-100); MEAN PLATELET VOLUME 10.6 fL (7.4-10.4); MONOCYTES # (AUTO) 0.71 x10^3/uL (0.2-0.8); MONOCYTES % (AUTO) 8 % (2-9); NEUTROPHILS # (AUTO) 6.97 x10^3/uL (1.8-6.8); NEUTROPHILS % (AUTO) 74 % (42-75); PLATELET COUNT 168 x10^3/uL (130-400); RED BLOOD COUNT 4.59 x10^6/uL (3.82-5.3); RED CELL DISTRIBUTION WIDTH 15.5 % (9.6-15.2)
[2019-01-21 14:14] LABS: ALBUMIN 3.1 g/dL (3.4-5.0); ANION GAP 8 mmol/L (5-15); CALCIUM 8.8 mg/dL (8.5-10.1); CHLORIDE 100 mmol/L (98-107); CREATININE 0.88 mg/dL (0.55-1.02)
[2019-01-21 14:25] VITALS: BP 117/58
--- NOTE | 2019-01-21 14:25 | NUR ---
PT ASLEEP ON ZEN. NADN. ESCAL[place].
--- NOTE | 2019-01-21 15:08 | NUR ---
PT FOUND AMBULATING IN HALLWAY WITH IV OUT. STATES SHE WANTS TO LEAVE. OFFERED D/C PAPERS WITH SCRIPT WHICH WEREN'T PRINTED YET. PT STATES SHE JUST WANTS FOOD AND WANTS TO LEAVE. PT GIVEN FOOD AND LEFT WITHOUT D/C PAPERS PER HER REQUEST.
[2019-03-15] MEDS ORDERED: SULF-169 PO (10:20)
[2019-03-15] MEDS ORDERED: ACET650S21 PO (19:07)
== END 2019-01-21 15:12 | disposition home or self-care (01) ==
LOC: ED 15:06
DX: R11.10 Vomiting, unspecified (principal); F11.10 Opioid abuse, uncomplicated; K21.9 Gastro-esophageal reflux disease without esophagitis; Z90.710 Acquired absence of both cervix and uterus; F32.9 Major depressive disorder, single episode, unspecified; F17.210 Nicotine dependence, cigarettes, uncomplicated
CPT/HCPCS: 36415; 80048; 82040; 85025; 96374; 99283; J2405

== ENCOUNTER 2019-01-23 13:49 | Emergency (ER) | payer MEDICARE | END 2019-01-23 14:16 | disposition left against medical advice (07) | LOC: ED 14:10 | DX: R55 Syncope and collapse (principal); Z53.21 Procedure and treatment not carried out due to patient leaving prior to being seen by health care provider ==

== ENCOUNTER 2019-04-11 06:03 | Emergency (ER) | payer MEDICARE, MEDICAID ==
[~2019-04-11] VITALS: Ht 167.6 cm; Wt 62.3 kg
[~2019-04-11 06:03] MED LIST changes: +ACET650S21 PO; +SULF-169 PO
[2019-04-11] MEDS ORDERED: ONDANSETRON ODT 4 MG PO ONE (06:30)
[2019-04-11] MEDS ORDERED: HYDROcodone/APAP 5/325 TABLET PO ONE (06:30)
[2019-04-11] MEDS ORDERED: ONDANSETRON ODT 4 MG ONE (06:33)
[2019-04-11] MEDS ORDERED: HYDROcodone/APAP 5/325 TABLET ONE (06:33)
--- NOTE | 2019-04-11 06:37 | NUR ---
PT HERE FOR N/V AND FLANK PAIN. PT MEDICATED FOR NAUSEA AND PAIN. PT GIVEN UA CUP FOR SAMPLE. PT WILL ATTEMPT TO GIVE SAMPLE.
[2019-04-11 07:02] LABS: BASOPHILS # (AUTO) 0.09 x10^3/uL (0-0.1); BASOPHILS % (AUTO) 1 % (0-1); EOSINOPHILS # (AUTO) 0.21 x10^3/uL (0-0.4); EOSINOPHILS % (AUTO) 2 % (1-7); LYMPHOCYTES # (AUTO) 0.83 x10^3/uL (1-3.4); LYMPHOCYTES % (AUTO) 10 % (22-44); MD NO; MEAN CORPUSCULAR HEMOGLOBIN 30.9 pg (27.0-34.8); MEAN CORPUSCULAR HGB CONC 32.6 g/dL (32.4-35.8); MEAN PLATELET VOLUME 9.3 fL (7.4-10.4); MONOCYTES # (AUTO) 0.74 x10^3/uL (0.2-0.8); MONOCYTES % (AUTO) 9 % (2-9); NEUTROPHILS # (AUTO) 6.73 x10^3/uL (1.8-6.8); NEUTROPHILS % (AUTO) 78 % (42-75); PLATELET COUNT 208 x10^3/uL (130-400); RED BLOOD COUNT 4.44 x10^6/uL (3.82-5.3); RED CELL DISTRIBUTION WIDTH 16.1 % (9.6-15.2)
--- NOTE | 2019-04-11 07:05 | NUR ---
REPORT RECIEVED FROM RJ URINE SAMPLE OBTAINED, PATIENT RESTING IN BED.
[2019-04-11 07:06] VITALS: BP 117/56
[2019-04-11 07:14] LABS: ALBUMIN 3.3 g/dL (3.4-5.0); ANION GAP 5 mmol/L (5-15); CALCIUM 8.6 mg/dL (8.5-10.1); CHLORIDE 106 mmol/L (98-107)
[2019-04-11 07:17] LABS: ALANINE AMINOTRANSFERASE 13 U/L (12-78); ALKALINE PHOSPHATASE 100 U/L (45-117); BILIRUBIN,TOTAL 0.8 mg/dL (0.2-1.0); CREATININE 0.74 mg/dL (0.55-1.02); TOTAL PROTEIN 6.8 g/dL (6.4-8.2)
[2019-04-11 07:33] LABS: MICROSCOPIC NOT IND
[2019-04-11 07:36] LABS: CULTURE INDICATED? NO
--- NOTE | 2019-04-11 08:29 | NUR ---
Patient given discharge instructions and they have confirmed that they understand the instructions. Patient ambulatory with steady gait.
== END 2019-04-11 08:29 | disposition home or self-care (01) ==
LOC: ED 06:28
DX: S39.012A Strain of muscle, fascia and tendon of lower back, initial encounter (principal); F32.9 Major depressive disorder, single episode, unspecified; I10 Essential (primary) hypertension; F17.200 Nicotine dependence, unspecified, uncomplicated; X58.XXXA Exposure to other specified factors, initial encounter; Y93.89 Activity, other specified; Y92.89 Other specified places as the place of occurrence of the external cause; Y99.8 Other external cause status
CPT/HCPCS: 36415; 80053; 81003; 85025; 99283; Q0162

== ENCOUNTER 2019-06-25 13:39 | Emergency (ER) | payer MEDICAID, MEDICARE ==
--- NOTE | 2019-06-25 13:45 | NUR ---
late entry d/t patient care: pt kelsey, report received from EMS. pt c/o dizziness and query syncope this am. pt states she awoke this am feeling dizzy, with cough, sore throat, and sternal chest pain. pt denies head injury or neck pain. ekg taken on arrival, reviewed by clarissa hastings. MD given report of patient complaints/symptoms. pt at bedside for eval. all monitors in place. pt a&o, resps even and unlabored, nadn.
[2019-06-25 14:14] LABS: BASOPHILS # (AUTO) 0.07 x10^3/uL (0-0.1); BASOPHILS % (AUTO) 1 % (0-1); EOSINOPHILS # (AUTO) 0.16 x10^3/uL (0-0.4); EOSINOPHILS % (AUTO) 2 % (1-7); LYMPHOCYTES # (AUTO) 0.88 x10^3/uL (1-3.4); LYMPHOCYTES % (AUTO) 9 % (22-44); MD NO; MEAN CORPUSCULAR HEMOGLOBIN 30.9 pg (27.0-34.8); MEAN CORPUSCULAR HGB CONC 33.1 g/dL (32.4-35.8); MEAN CORPUSCULAR VOLUME 93.4 fL (80-100); MEAN PLATELET VOLUME 10.4 fL (7.4-10.4); MONOCYTES # (AUTO) 0.51 x10^3/uL (0.2-0.8); MONOCYTES % (AUTO) 6 % (2-9); NEUTROPHILS # (AUTO) 7.69 x10^3/uL (1.8-6.8); NEUTROPHILS % (AUTO) 83 % (42-75); PLATELET COUNT 187 x10^3/uL (130-400); RED BLOOD COUNT 4.34 x10^6/uL (3.82-5.3); RED CELL DISTRIBUTION WIDTH 16.6 % (9.6-15.2)
[2019-06-25 14:23] LABS: ALBUMIN 3.5 g/dL (3.4-5.0); ANION GAP 11 mmol/L (5-15); CALCIUM 8.8 mg/dL (8.5-10.1); CHLORIDE 97 mmol/L (98-107)
[2019-06-25 14:30] LABS: ALANINE AMINOTRANSFERASE 119 U/L (12-78); ALKALINE PHOSPHATASE 159 U/L (45-117); BILIRUBIN,TOTAL 1.1 mg/dL (0.2-1.0); CREATININE 1.15 mg/dL (0.55-1.02); TOTAL PROTEIN 6.9 g/dL (6.4-8.2)
[2019-06-25 14:48] VITALS: BP 125/58
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
--- NOTE | 2019-06-25 15:00 | NUR ---
pt dc'd by task GRETCHEN Danielle via [facility]. do at transport.
[2019-07-11] MEDS ORDERED: FOLI-17 PO (08:59)
[2019-07-11] MEDS ORDERED: FAMO20TA7 PO (08:59)
[2019-07-11] MEDS ORDERED: THIA100T67 PO (08:59)
[2019-07-11] MEDS ORDERED: MULT1TAB60 PO (08:59)
[2019-07-15] MEDS ORDERED: OMEP-110 PO (09:19)
== END 2019-06-25 15:22 | disposition home or self-care (01) ==
LOC: ED 14:30
DX: R91.1 Solitary pulmonary nodule (principal); R42 Dizziness and giddiness; J20.9 Acute bronchitis, unspecified; I10 Essential (primary) hypertension; K21.9 Gastro-esophageal reflux disease without esophagitis
CPT/HCPCS: 36415; 71045; 80053; 85025; 93005; 99284

== ENCOUNTER 2019-08-03 13:00 | Emergency (ER) | payer MEDICARE, MEDICAID ==
[~2019-08-03] VITALS: Ht 167.6 cm; Wt 60.7 kg
[~2019-08-03 13:00] MED LIST changes: +FAMO20TA7 PO; +MULT1TAB60 PO
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
--- NOTE | 2019-08-03 13:44 | NUR ---
TASK RN: PT PROVIDED URINE SAMPLE. UA COLLECTED AND TAKEN TO LAB.
[2019-08-03 13:45] LABS: BASOPHILS # (AUTO) 0.03 x10^3/uL (0-0.1); BASOPHILS % (AUTO) 0 % (0-1); EOSINOPHILS # (AUTO) 0.23 x10^3/uL (0-0.4); EOSINOPHILS % (AUTO) 3 % (1-7); LYMPHOCYTES # (AUTO) 2.08 x10^3/uL (1-3.4); LYMPHOCYTES % (AUTO) 25 % (22-44); MD NO; MEAN CORPUSCULAR HEMOGLOBIN 33.1 pg (27.0-34.8); MEAN CORPUSCULAR HGB CONC 33.5 g/dL (32.4-35.8); MEAN CORPUSCULAR VOLUME 98.6 fL (80-100); MEAN PLATELET VOLUME 10.6 fL (7.4-10.4); MONOCYTES # (AUTO) 0.63 x10^3/uL (0.2-0.8); MONOCYTES % (AUTO) 8 % (2-9); NEUTROPHILS # (AUTO) 5.38 x10^3/uL (1.8-6.8); NEUTROPHILS % (AUTO) 64 % (42-75); PLATELET COUNT 165 x10^3/uL (130-400); RED BLOOD COUNT 4.35 x10^6/uL (3.82-5.3); RED CELL DISTRIBUTION WIDTH 16.4 % (9.6-15.2)
[2019-08-03 13:55] LABS: ALBUMIN 3.5 g/dL (3.4-5.0); ANION GAP 11 mmol/L (5-15); CALCIUM 8.8 mg/dL (8.5-10.1); CHLORIDE 100 mmol/L (98-107); CREATININE 0.97 mg/dL (0.55-1.02)
--- NOTE | 2019-08-03 14:05 | NUR ---
TUMBLER DYEING MACHINE OPERATOR EVALUATING PT
[2019-08-03 14:08] LABS: AMPHETAMINE SCREEN, URINE Positive (Negative); BARBITURATE SCREEN, URINE Negative (Negative); BENZODIAZEPINE SCREEN, URINE Negative (Negative); CANNABINOID SCREEN, URINE Negative (Negative); COCAINE SCREEN, URINE Negative (Negative); METHADONE SCREEN, URINE Negative (Negative); OPIATE SCREEN, URINE Negative (Negative)
--- NOTE | 2019-08-03 14:50 | NUR ---
SITTER OUTSIDE ROOM IN DIRECT VIEW OF PT
--- NOTE | 2019-08-03 16:00 | NUR ---
QUESTIONS ANSWERED ABOUT NEXT STEPS IN PT'S LEGAL HOLD. PT STATES SHE REALLY THINKS SHE NEEDS THE HELP. PT SLEEPING OFF AND ON
--- NOTE | 2019-08-03 17:56 | NUR ---
[facility] UNABLE TO TAKE DUE TO STAFFING. PACKET FAXED TO [facility], [facility], [facility], [facility] AND [facility]
--- NOTE | 2019-08-03 18:44 | NUR ---
Pt report from Lisy dixon. This rn to assume care of pt. Resting comfortably on gurney. Rr even and unlabored. Roller doors in place. Sitter in hallway.
[2019-08-03 19:13] VITALS: BP 163/90
--- NOTE | 2019-08-03 19:22 | NUR ---
Pt provided water and lights off for comfort. Asking to talk to md, would not divulge to this rn the topic. Md consulted.
[2019-08-03] MEDS ORDERED: LORazepam 1MG TABLET ONE (19:24)
[2019-08-03] MEDS ORDERED: LORazepam 1MG TABLET PO ONE (19:30)
--- NOTE | 2019-08-03 19:30 | NUR ---
Pt keeps waking into the hallway upset. States she can hear people "talking shit about me and i dont like it." Visibly upset and raising voice for people to stop. Pt reoriented to situation and still upset. Md informed and pt medicated per aug. Room door partially closed, w/ sitter close to room for checks.
--- NOTE | 2019-08-03 19:36 | NUR ---
Shaheen rn at [facility] given report via this rn. Shaheen states pt should be accepted, but needs to consult md. States will call back.
--- NOTE | 2019-08-03 19:52 | NUR ---
TP RN: PT ACCEPTED BY DR DEVINE AT [facility].
== END 2019-08-03 21:11 ==
LOC: ED 15:55
DX: R45.851 Suicidal ideations (principal); F32.9 Major depressive disorder, single episode, unspecified; I10 Essential (primary) hypertension; K21.9 Gastro-esophageal reflux disease without esophagitis; Z90.710 Acquired absence of both cervix and uterus; F17.200 Nicotine dependence, unspecified, uncomplicated; Z90.722 Acquired absence of ovaries, bilateral
CPT/HCPCS: 36415; 80048; 80307; 82040; 85025; 99285

== ENCOUNTER 2019-08-15 05:05 | Emergency (ER) | payer MEDICARE, MEDICAID ==
[~2019-08-15] VITALS: Ht 167.6 cm; Wt 63.0 kg
--- NOTE | 2019-08-15 05:14 | NUR ---
PT AMBULATES FROM TRIAGE TO ROOM WITH STEADY GAIT.
--- NOTE | 2019-08-15 05:15 | NUR ---
MAXINE GORMAN AT BS FOR PT HISTORY AND ASSESSMENT.
[2019-08-15] MEDS ORDERED: SODIUM CHLORIDE FLUSH 10ML SYR IVF ONE (05:30)
[2019-08-15] MEDS ORDERED: FAMOTIDINE 20 MG/2 ML IV ONE (05:30)
[2019-08-15] MEDS ORDERED: SODIUM CHLORIDE 0.9% 1,000ML IVBOLUS ONE (05:30)
[2019-08-15] MEDS ORDERED: MAALOX/HYOSCYAMINE/LIDOCAINE 45 ML BTL PO ONE (05:30)
[2019-08-15] MEDS ORDERED: ONDANSETRON 2MG/ML, 2ML IVPush ONE (05:30)
[2019-08-15] MEDS ORDERED: ONDANSETRON 2MG/ML, 2ML ONE (05:48)
[2019-08-15] MEDS ORDERED: FAMOTIDINE 20 MG/2 ML ONE (05:48)
[2019-08-15] MEDS ORDERED: MAALOX/HYOSCYAMINE/LIDOCAINE 45 ML BTL ONE (05:48)
[2019-08-15 05:50] LABS: BASOPHILS # (AUTO) 0.14 x10^3/uL (0-0.1); BASOPHILS % (AUTO) 2 % (0-1); EOSINOPHILS # (AUTO) 0.12 x10^3/uL (0-0.4); EOSINOPHILS % (AUTO) 2 % (1-7); LYMPHOCYTES # (AUTO) 1.18 x10^3/uL (1-3.4); LYMPHOCYTES % (AUTO) 18 % (22-44); MD NO; MEAN CORPUSCULAR HEMOGLOBIN 32.7 pg (27.0-34.8); MEAN CORPUSCULAR HGB CONC 33.3 g/dL (32.4-35.8); MEAN CORPUSCULAR VOLUME 98.1 fL (80-100); MEAN PLATELET VOLUME 9.7 fL (7.4-10.4); MONOCYTES # (AUTO) 0.53 x10^3/uL (0.2-0.8); MONOCYTES % (AUTO) 8 % (2-9); NEUTROPHILS # (AUTO) 4.73 x10^3/uL (1.8-6.8); NEUTROPHILS % (AUTO) 71 % (42-75); PLATELET COUNT 266 x10^3/uL (130-400); RED BLOOD COUNT 3.94 x10^6/uL (3.82-5.3); RED CELL DISTRIBUTION WIDTH 15.4 % (9.6-15.2)
--- NOTE | 2019-08-15 05:50 | NUR ---
pt medicated per mar at this time.
[2019-08-15 06:02] LABS: ALBUMIN 3.4 g/dL (3.4-5.0); ANION GAP 12 mmol/L (5-15); CALCIUM 9.1 mg/dL (8.5-10.1); CHLORIDE 106 mmol/L (98-107)
[2019-08-15 06:05] LABS: ALANINE AMINOTRANSFERASE 33 U/L (12-78); ALKALINE PHOSPHATASE 83 U/L (45-117); BILIRUBIN,TOTAL 0.4 mg/dL (0.2-1.0); CREATININE 0.71 mg/dL (0.55-1.02); TOTAL PROTEIN 7.4 g/dL (6.4-8.2)
[2019-08-15 06:45] LABS: MICROSCOPIC INDICATED
--- NOTE | 2019-08-15 07:00 | NUR ---
REPORT RECIEVED FROM SHERIF GODINEZ
[2019-08-15 07:13] LABS: CULTURE INDICATED? YES
--- NOTE | 2019-08-15 07:29 | NUR ---
PT RESTING IN BED, CALL LIGHT IN REACH. VSS, A&O.
[2019-08-15] MEDS ORDERED: PROMETHAZINE 25 MG/ML, 1ML ONE (07:57)
[2019-08-15] MEDS ORDERED: PROMETHAZINE 25 MG/ML, 1ML IM ONE (08:00)
[2019-08-15 08:23] VITALS: BP 137/61
--- NOTE | 2019-08-15 08:23 | NUR ---
SHANTHI PA AT BEDSIDE TO DISCUSS POC
--- NOTE | 2019-08-15 08:48 | NUR ---
DISCHARGE INSTRUCTIONS REVIEWED
== END 2019-08-15 09:01 | disposition home or self-care (01) ==
LOC: ED 05:43
DX: K29.00 Acute gastritis without bleeding (principal); R11.2 Nausea with vomiting, unspecified; I10 Essential (primary) hypertension; K21.9 Gastro-esophageal reflux disease without esophagitis; I25.10 Atherosclerotic heart disease of native coronary artery without angina pectoris; R94.31 Abnormal electrocardiogram [ECG] [EKG]; Z90.710 Acquired absence of both cervix and uterus
CPT/HCPCS: 36415; 80053; 81001; 83690; 85025; 87086; 93005; 96361; 96372; 96374; 96375; 99284; J2405; J2550; J3490; J7030

== ENCOUNTER 2019-08-24 10:46 | Emergency (ER) | payer MEDICARE, MEDICAID ==
[~2019-08-24] VITALS: Ht 167.6 cm; Wt 64.0 kg
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
[2019-08-24] MEDS ORDERED: HYDROcodone/APAP 5/325 TABLET PO ONE (11:30)
[2019-08-24] MEDS ORDERED: HYDROcodone/APAP 5/325 TABLET ONE (11:44)
[2019-08-24 11:46] VITALS: BP 120/66
--- NOTE | 2019-08-24 11:47 | NUR ---
PT MEDICATED PER EMAR FOR PAIN. PT TOLERATED WELL.
== END 2019-08-24 12:51 ==
LOC: ED 11:00
DX: S22.32XA Fracture of one rib, left side, initial encounter for closed fracture (principal); R07.81 Pleurodynia; G89.29 Other chronic pain; K21.9 Gastro-esophageal reflux disease without esophagitis; I10 Essential (primary) hypertension; X58.XXXA Exposure to other specified factors, initial encounter; Y93.89 Activity, other specified; Y92.830 Public park as the place of occurrence of the external cause; Y99.8 Other external cause status
CPT/HCPCS: 99283

== ENCOUNTER 2019-09-08 06:03 | Emergency (ER) | payer MEDICAID, MEDICARE ==
[~2019-09-08] VITALS: Ht 167.6 cm; Wt 68.0 kg
[2019-09-08 06:05] VITALS: BP 156/76
--- NOTE | 2019-09-08 06:19 | NUR ---
Patient presents to ER c/o kidney pain which started a couple days ago. Patient denies N/V/D. Denies abd pain. Patient states she has "a bit of a cold right now." Patient is in NAD. Respirations even and unlabored.
[2019-09-08 06:39] LABS: MICROSCOPIC AUTO
[2019-09-08 06:40] LABS: CULTURE INDICATED? YES
[2019-09-08] MEDS ORDERED: FOSFOMYCIN 3 GM PACKET ONE (06:50)
--- NOTE | 2019-09-08 06:57 | NUR ---
Discharge instructions given. All questions and concerns addressed. Patient ambulatory with a steady gait. Belongings with patient.
[2019-09-08] MEDS ORDERED: FOSFOMYCIN 3 GM PACKET PO ONE (07:00)
== END 2019-09-08 06:58 | disposition home or self-care (01) ==
LOC: ED 06:24
DX: S39.012A Strain of muscle, fascia and tendon of lower back, initial encounter (principal); X58.XXXA Exposure to other specified factors, initial encounter; Y93.89 Activity, other specified; Y92.89 Other specified places as the place of occurrence of the external cause; Y99.8 Other external cause status
CPT/HCPCS: 81001; 87086; 99283

== ENCOUNTER 2019-09-24 06:41 | Emergency (ER) | payer MEDICARE, MEDICAID ==
[~2019-09-24] VITALS: Ht 160 cm; Wt 63.0 kg
--- NOTE | 2019-09-24 06:59 | NUR ---
REPORT RECEIVED FROM ANSON GODINEZ. ASSUMING [facility] CARE OF PT.
--- NOTE | 2019-09-24 07:00 | NUR ---
Report given to GRETCHEN Dahl.
--- NOTE | 2019-09-24 07:07 | NUR ---
PT STATED THAT SHE IS HAVING A "DISCHARGE" FROM HER VAGINA. RN ASKED PT IF SHE WAS ABLE TO PROVIDE RN WITH A URINE SAMPLE. PT STATED YES. PT AMBULATED TO RESTROOM WITH RN. STEADY GAIT.
--- NOTE | 2019-09-24 07:37 | NUR ---
ERMD AT BEDSIDE.
[2019-09-24 07:40] VITALS: BP 136/73
--- NOTE | 2019-09-24 07:58 | NUR ---
PT WALKED OUT TO THE NURSING STATION DEMANDING TO LEAVE. PT REFUSED TO TAKE DC DISTRUCTIONS AND TO TAKE PRESCRIPTION SCRIPT. PT AMBULATED OUT OF ED WITH A STEADY GAIT.
[2019-09-24] MEDS ORDERED: FLUCONAZOLE 100 MG TABLET PO ONE (08:00)
== END 2019-09-24 08:01 | disposition home or self-care (01) ==
LOC: ED 06:55
DX: N89.8 Other specified noninflammatory disorders of vagina (principal); I10 Essential (primary) hypertension; F17.200 Nicotine dependence, unspecified, uncomplicated; Z90.710 Acquired absence of both cervix and uterus
CPT/HCPCS: 99281

== ENCOUNTER 2019-09-28 19:59 | Emergency (ER) | payer MEDICARE, MEDICAID ==
[2019-09-28 20:03] VITALS: BP 151/76
[2019-09-28] MEDS ORDERED: FAMOTIDINE 20 MG TABLET ONE (20:22)
[2019-09-28] MEDS ORDERED: MAALOX/HYOSCYAMINE/LIDOCAINE 45 ML BTL ONE (20:22)
[2019-09-28] MEDS ORDERED: MAALOX/HYOSCYAMINE/LIDOCAINE 45 ML BTL PO ONE (20:30)
[2019-09-28] MEDS ORDERED: FAMOTIDINE 20 MG TABLET PO ONE (20:30)
[2019-09-28] MEDS ORDERED: PLEASE ENTER HEIGHT AND WEIGHT MC SCH (20:30)
[2019-09-28 21:16] LABS: BASOPHILS # (AUTO) 0.05 x10^3/uL (0-0.1); BASOPHILS % (AUTO) 1 % (0-1); EOSINOPHILS # (AUTO) 0.24 x10^3/uL (0-0.4); EOSINOPHILS % (AUTO) 3 % (1-7); LYMPHOCYTES # (AUTO) 1.58 x10^3/uL (1-3.4); LYMPHOCYTES % (AUTO) 22 % (22-44); MD NO; MEAN CORPUSCULAR HEMOGLOBIN 32.5 pg (27.0-34.8); MEAN CORPUSCULAR HGB CONC 32.5 g/dL (32.4-35.8); MEAN PLATELET VOLUME 9.9 fL (7.4-10.4); MONOCYTES # (AUTO) 0.83 x10^3/uL (0.2-0.8); MONOCYTES % (AUTO) 12 % (2-9); NEUTROPHILS # (AUTO) 4.35 x10^3/uL (1.8-6.8); NEUTROPHILS % (AUTO) 62 % (42-75); PLATELET COUNT 188 x10^3/uL (130-400); RED BLOOD COUNT 3.92 x10^6/uL (3.82-5.3); RED CELL DISTRIBUTION WIDTH 18.4 % (9.6-15.2)
[2019-09-28 21:23] LABS: INTERNATIONAL NORMALIZED RATIO 0.93 (0.93-1.1); PROTHROMBIN TIME 9.8 Seconds (9.6-11.5)
[2019-09-28 21:25] LABS: ALANINE AMINOTRANSFERASE 42 U/L (12-78); ALBUMIN 2.9 g/dL (3.4-5.0); ANION GAP 6 mmol/L (5-15); CALCIUM 9.1 mg/dL (8.5-10.1); CHLORIDE 107 mmol/L (98-107); CREATININE 0.88 mg/dL (0.55-1.02)
[2019-09-28 21:29] LABS: ALKALINE PHOSPHATASE 143 U/L (45-117); BILIRUBIN,TOTAL 0.2 mg/dL (0.2-1.0); TOTAL PROTEIN 6.7 g/dL (6.4-8.2); TROPONIN I < 0.015 ng/mL (0.000-0.045)
== END 2019-09-28 21:55 | disposition home or self-care (01) ==
LOC: ED 20:10
DX: K29.00 Acute gastritis without bleeding (principal); R07.89 Other chest pain; R11.2 Nausea with vomiting, unspecified; I10 Essential (primary) hypertension; F17.210 Nicotine dependence, cigarettes, uncomplicated; R94.31 Abnormal electrocardiogram [ECG] [EKG]; Z86.19 Personal history of other infectious and parasitic diseases; Z90.710 Acquired absence of both cervix and uterus; Z90.722 Acquired absence of ovaries, bilateral; Z79.01 Long term (current) use of anticoagulants; Z91.14 Patient's other noncompliance with medication regimen
CPT/HCPCS: 36415; 71045; 80053; 80307; 84484; 85025; 85610; 93005; 99406

== ENCOUNTER 2019-10-09 11:55 | Emergency (ER) | payer MEDICARE, MEDICAID ==
[~2019-10-09] VITALS: Ht 162.6 cm; Wt 59.4 kg
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
--- NOTE | 2019-10-09 12:59 | NUR ---
labeled covid swab was placed in bucket by this rn. as
[2019-10-09 13:12] VITALS: BP 172/88
--- NOTE | 2019-10-09 13:12 | NUR ---
pt very tearful bc she thinks people are talking about her. reassured that other patients and nurses are not talking about her. as
== END 2019-10-09 13:15 | disposition home or self-care (01) ==
LOC: ED 12:12
DX: J44.1 Chronic obstructive pulmonary disease with (acute) exacerbation (principal); Z20.828 Contact with and (suspected) exposure to other viral communicable diseases; R94.31 Abnormal electrocardiogram [ECG] [EKG]; I10 Essential (primary) hypertension; K21.9 Gastro-esophageal reflux disease without esophagitis; Z90.710 Acquired absence of both cervix and uterus; Z90.722 Acquired absence of ovaries, bilateral
CPT/HCPCS: 71045; 93005; 99285; U0001

== ENCOUNTER 2019-10-15 08:20 | Emergency (ER) | payer MEDICARE, MEDICAID ==
[~2019-10-15] VITALS: Ht 167.6 cm; Wt 57.7 kg
[2019-10-15 08:30] VITALS: BP 155/94
[2019-10-15] MEDS ORDERED: ACETAMINOPHEN 325 MG TABLET PO ONE (09:00)
[2019-10-15] MEDS ORDERED: KETOROLAC 30 MG/1 ML IM ONE (09:00)
[2019-10-15] MEDS ORDERED: DIPH,PERTUSS(ACELL),TET VAC/PF 0.5 ML IM-VACC ONE ×2 (09:00→09:07)
[2019-10-15] MEDS ORDERED: KETOROLAC 30 MG/1 ML ONE (09:06)
[2019-10-15] MEDS ORDERED: ACETAMINOPHEN 325 MG TABLET ONE (09:07)
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
--- NOTE | 2019-10-15 10:06 | NUR ---
PT TO DC. PROVIDED SHIRT AND PANTS FROM [employer]
== END 2019-10-15 10:13 | disposition home or self-care (01) ==
LOC: ED 09:32
DX: S50.811A Abrasion of right forearm, initial encounter (principal); S09.90XA Unspecified injury of head, initial encounter; J44.9 Chronic obstructive pulmonary disease, unspecified; K21.9 Gastro-esophageal reflux disease without esophagitis; I10 Essential (primary) hypertension; X58.XXXA Exposure to other specified factors, initial encounter; Y93.39 Activity, other involving climbing, rappelling and jumping off; Y92.098 Other place in other non-institutional residence as the place of occurrence of the external cause; Y99.8 Other external cause status
CPT/HCPCS: 70450; 90471; 90715; 96372; 99284; J1885

== ENCOUNTER 2019-11-02 19:34 | Emergency (ER) | payer MEDICAID, MEDICARE ==
[~2019-11-02] VITALS: Ht 165.1 cm; Wt 64.0 kg
[2019-11-02 19:45] VITALS: BP 106/74
[2019-11-02] MEDS ORDERED: IBUPROFEN 600 MG TABLET ONE (20:19)
[2019-11-02] MEDS ORDERED: LORazepam 1MG TABLET ONE (20:20)
[2019-11-02] MEDS ORDERED: IBUPROFEN 200 MG TABLET PO ONE (20:30)
[2019-11-02] MEDS ORDERED: LORazepam 1MG TABLET PO ONE (20:30)
== END 2019-11-02 20:37 | disposition home or self-care (01) ==
LOC: ED 20:04
DX: J44.1 Chronic obstructive pulmonary disease with (acute) exacerbation (principal); J20.9 Acute bronchitis, unspecified; K21.9 Gastro-esophageal reflux disease without esophagitis; I10 Essential (primary) hypertension; Z90.710 Acquired absence of both cervix and uterus; Z90.722 Acquired absence of ovaries, bilateral
CPT/HCPCS: 71045; 99283

== ENCOUNTER 2019-11-05 08:18 | Emergency (ER) | payer MEDICARE, MEDICAID ==
[~2019-11-05] VITALS: Ht 167.6 cm; Wt 60.5 kg
[2019-11-05 08:20] VITALS: BP 109/68
[2019-11-05] MEDS ORDERED: IBUPROFEN 200 MG TABLET PO ONE (09:00)
[2019-11-05] MEDS ORDERED: IBUPROFEN 600 MG TABLET ONE (09:41)
== END 2019-11-05 10:27 | disposition home or self-care (01) ==
LOC: ED 09:24
DX: M79.18 Myalgia, other site (principal); M79.602 Pain in left arm
CPT/HCPCS: 99283

== ENCOUNTER 2019-12-13 06:45 | Emergency (ER) | payer MEDICARE, MEDICAID ==
[~2019-12-13] VITALS: Ht 167.6 cm; Wt 58.3 kg
[~2019-12-13 06:45] MED LIST changes: +MULT-449 PO; -MULT1TAB60 PO
[2019-12-13 06:48] VITALS: BP 144/72
--- NOTE | 2019-12-13 07:10 | NUR ---
PT AMBULATED TO BR WITH STEADY GAIT, UA SAMPLE COLLECTED AND SENT TO LAB. PT TO BP, CONT PULSE OX AT THIS TIME, ERMD IN TO EVAL, ORDERS RECIEVED
[2019-12-13 07:38] LABS: MICROSCOPIC INDICATED
== END 2019-12-13 07:48 | disposition home or self-care (01) ==
LOC: ED 07:05
DX: J44.1 Chronic obstructive pulmonary disease with (acute) exacerbation (principal); N39.0 Urinary tract infection, site not specified; I10 Essential (primary) hypertension; J44.9 Chronic obstructive pulmonary disease, unspecified; K21.9 Gastro-esophageal reflux disease without esophagitis; Z90.710 Acquired absence of both cervix and uterus; Z90.722 Acquired absence of ovaries, bilateral; F17.200 Nicotine dependence, unspecified, uncomplicated
CPT/HCPCS: 71045; 81001; 87077; 87086; 87186; 99284

== ENCOUNTER 2020-03-03 16:20 | Inpatient (IN) | payer MEDICARE, MEDICAID ==
[~2020-03-03] VITALS: Ht 167.6 cm; Wt 57.0 kg
[~2020-03-03 16:20] MED LIST changes: +ACET325T26 PO; +ARIP10TA33 PO; +ENOX40SY4 SQ; +ERTA1VIA4 IV; +FLUO10CA14 PO; +MORP15TA PO; +NICO-486 TD; +TRAZ50TA66 PO
--- NOTE | 2020-03-03 16:40 | NUR ---
PT A&OX4, RESP EVEN & UNLABORED, SPEECH CLEAR. STATES SHE FELT DIZZY AND THEN FELL BACKWARDS; LANDED ON CONCRETE. ECCHYMOSIS TO LT SCAPULAR AREA. C/O PAIN TO FEET; BLISTERS, HAMMER TOES BILATERALLY. PT CURRENTLY HOMELESS.
--- NOTE | 2020-03-03 16:55 | NUR ---
PT IN RADIOLOGY
--- NOTE | 2020-03-03 17:00 | NUR ---
PT TO BR PER MARCELLE. ABLE TO AMBULATE FROM [facility] TO AND BACK W/OUT INCIDENT; GAIT STEADY; C/O FOOT PAIN W/ WEIGHT BEARING; VOIDED SPECIMEN PROVIDED - CLOUDY YELLOW.
[2020-03-03 17:25] LABS: BASOPHILS # (AUTO) 0.03 x10^3/uL (0-0.1); BASOPHILS % (AUTO) 0 % (0-1); EOSINOPHILS # (AUTO) 0.19 x10^3/uL (0-0.4); EOSINOPHILS % (AUTO) 2 % (1-7); LYMPHOCYTES # (AUTO) 1.65 x10^3/uL (1-3.4); LYMPHOCYTES % (AUTO) 16 % (22-44); MD NO; MEAN CORPUSCULAR HEMOGLOBIN 30.6 pg (27.0-34.8); MEAN CORPUSCULAR HGB CONC 32.5 g/dL (32.4-35.8); MEAN CORPUSCULAR VOLUME 94.3 fL (80-100); MEAN PLATELET VOLUME 10.8 fL (7.4-10.4); MONOCYTES # (AUTO) 1.22 x10^3/uL (0.2-0.8); MONOCYTES % (AUTO) 12 % (2-9); NEUTROPHILS # (AUTO) 7.11 x10^3/uL (1.8-6.8); NEUTROPHILS % (AUTO) 70 % (42-75); PLATELET COUNT 204 x10^3/uL (130-400); RED BLOOD COUNT 4.79 x10^6/uL (3.82-5.3)
[2020-03-03 17:34] LABS: ALBUMIN 3.1 g/dL (3.4-5.0); ANION GAP 10 mmol/L (5-15); CALCIUM 8.8 mg/dL (8.5-10.1); CHLORIDE 103 mmol/L (98-107); CREATININE 0.85 mg/dL (0.55-1.02)
[2020-03-03 17:38] LABS: TROPONIN I < 0.015 ng/mL (0.000-0.045)
[2020-03-03 17:41] LABS: MICROSCOPIC INDICATED
--- NOTE | 2020-03-03 17:50 | NUR ---
PT REPORT TO BREAK RN; PT CARE TRANSFERRED.
[2020-03-03] MEDS ORDERED: POTASSIUM CHLORIDE 20 MEQ PACKET ONE (17:58)
[2020-03-03] MEDS ORDERED: CEFTRIAXONE PMX 1GM/50ML 50 ML ONE (17:58)
[2020-03-03] MEDS ORDERED: CEFTRIAXONE PMX 1GM/50ML 50 ML IV ONE (18:00)
[2020-03-03] MEDS ORDERED: POTASSIUM CHLORIDE 20 MEQ PACKET PO ONE (18:00)
[2020-03-03] MEDS ORDERED: POTASSIUM CHLORIDE 40 MEQ in SODIUM CHLORIDE 0.9% 500 ML IV ONE (18:00)
--- NOTE | 2020-03-03 18:15 | NUR ---
BREAK RN: VERFIED WITH MD PRIOR TO ADMIN, NO NEED FOR BLOOD CULTURES TO BE DRAWN PRIOR TO IV ABX
[2020-03-03] MEDS ORDERED: MAGNESIUM SULFATE PMX 4GM/100M 100 ML IV ONE (18:30)
[2020-03-03] MEDS ORDERED: BISACODYL 10 MG SUPP PR PRN (18:30)
[2020-03-03] MEDS ORDERED: POLYETHYLENE GLYCOL 17 GM PACKET PO PRN (18:30)
[2020-03-03] MEDS ORDERED: LORazepam 1MG TABLET PO PRN (18:30)
--- NOTE | 2020-03-03 18:36 | NUR ---
CALLED RECEIVING RN; RN NOT CURRENTLY AVAILABLE, BUT WILL CALL BACK.
--- NOTE | 2020-03-03 18:40 | NUR ---
PT DOZING ON MARCELLE. NS AND CEFTRIAXONE INFUSING; IV SITE PATENT. PT REQUESTS MED FOR NAUSEA; ERP WILL BE NOTIFIED.
[2020-03-03] MEDS ORDERED: SODIUM CHLORIDE 0.9% 1,000ML IVBOLUS ONE (19:00)
--- NOTE | 2020-03-03 19:12 | NUR ---
PT REPORT TO GRETCHEN HOFFMAN FOR ROOM 401
--- NOTE | 2020-03-03 19:32 | NUR ---
CEFTRIAXONE INFUSED. POTASSIUM CHLORIDE 40MEQ HUNG; INFUSING AT 130ML/HR PER EMAR. NS INFUSING.
--- NOTE | 2020-03-03 19:40 | NUR ---
PT C/O OF STINGING PROXIMAL TO IV SITE. ASSESSMENT OF SITE: IV IS QUESTIONABLE. NEW IV TO BE PLACED. Addendum: 03/03/20 at 1950 by HOLDEN INFUSING TEMPORARILY HELD
--- NOTE | 2020-03-03 19:50 | NUR ---
PT UP TO BS COMMODE
--- NOTE | 2020-03-03 19:56 | NUR ---
RETURNED TO [facility]. NS AND POTASSIUM INFUSION CHANGED TO RT HAND IV SITE. LAC IV LOCK PRESENT FOR RECEIVING RN TO ASSESS AND DECIDE UPON USE.
--- NOTE | 2020-03-03 20:01 | NUR ---
PER THROUGHPUT RN, PT'S ROOM WAS REPORTED STILL NOT READY; HOUSE SUPERVISER AWARE.
[2020-03-03 20:46] VITALS: BP 117/68
[2020-03-03] MEDS: HEPARIN 5,000 UNITS/ML, 1ML SQ SCH (21:15)
[2020-03-03] MEDS: THIAMINE 100MG TABLET PO SCH (21:16)
[2020-03-04] VITALS (8 sets, daily range): BP systolic 110–137; BP diastolic 65–83
[2020-03-04] MEDS: NS + 20MEQ KCL 1,000 ML IV SCH ×2 (02:19→14:08)
[2020-03-04] MEDS: ERTAPENEM 1 GM in SODIUM CHLORIDE 0.9% 50 ML IV SCH (02:19)
[2020-03-04 04:21] LABS: BASOPHILS # (AUTO) 0.03 x10^3/uL (0-0.1); BASOPHILS % (AUTO) 0 % (0-1); EOSINOPHILS # (AUTO) 0.32 x10^3/uL (0-0.4); EOSINOPHILS % (AUTO) 4 % (1-7); LYMPHOCYTES # (AUTO) 1.56 x10^3/uL (1-3.4); LYMPHOCYTES % (AUTO) 19 % (22-44); MD NO; MEAN CORPUSCULAR HEMOGLOBIN 30.1 pg (27.0-34.8); MEAN CORPUSCULAR HGB CONC 31.4 g/dL (32.4-35.8); MEAN CORPUSCULAR VOLUME 95.9 fL (80-100); MEAN PLATELET VOLUME 11.3 fL (7.4-10.4); MONOCYTES % (AUTO) 13 % (2-9); NEUTROPHILS # (AUTO) 5.23 x10^3/uL (1.8-6.8); NEUTROPHILS % (AUTO) 64 % (42-75); PLATELET COUNT 192 x10^3/uL (130-400); RED BLOOD COUNT 4.43 x10^6/uL (3.82-5.3); RED CELL DISTRIBUTION WIDTH 15.7 % (9.6-15.2)
[2020-03-04 04:34] LABS: ANION GAP 7 mmol/L (5-15); CALCIUM 8.6 mg/dL (8.5-10.1); CHLORIDE 106 mmol/L (98-107)
[2020-03-04 04:35] LABS: CREATININE 0.62 mg/dL (0.55-1.02)
[2020-03-04] MEDS: HEPARIN 5,000 UNITS/ML, 1ML SQ SCH ×3 (05:19→20:31)
[2020-03-04] MEDS: SENNA/DOCUSATE TABLET PO SCH (09:00)
[2020-03-04] MEDS: THIAMINE 100MG TABLET PO SCH ×2 (09:27→20:31)
[2020-03-04] MEDS: FOLIC ACID 1 MG TABLET PO SCH (09:27)
[2020-03-04] MEDS: ASPIRIN 81 MG TABLET EC PO SCH (09:27)
[2020-03-04] MEDS: MULTIVITAMINS/MINERALS TABLET PO SCH (09:27)
[2020-03-04] MEDS: DIPHENHYDRAMINE 25 MG CAPSULE PO PRN ×2 (14:08→23:39)
[2020-03-04] MEDS: ONDANSETRON ODT 4 MG PO PRN (17:56)
[2020-03-04] MEDS ORDERED: CEFTRIAXONE PMX 1GM/50ML 50 ML IV SCH (18:00)
[2020-03-05 00:30] VITALS: BP 119/62
[2020-03-05 00:33] VITALS: BP 125/78
[2020-03-05 00:34] VITALS: BP 134/78
[2020-03-05] MEDS: ERTAPENEM 1 GM in SODIUM CHLORIDE 0.9% 50 ML IV SCH (02:23)
[2020-03-05] MEDS: NS + 20MEQ KCL 1,000 ML IV SCH ×2 (04:29→21:11)
[2020-03-05 05:12] LABS: INTERNATIONAL NORMALIZED RATIO 0.99 (0.93-1.1); PROTHROMBIN TIME 10.2 Seconds (9.6-11.5)
[2020-03-05 05:17] LABS: ALBUMIN 2.4 g/dL (3.4-5.0); ANION GAP 6 mmol/L (5-15); CHLORIDE 106 mmol/L (98-107)
[2020-03-05 05:29] LABS: BASOPHILS # (AUTO) 0.03 x10^3/uL (0-0.1); BASOPHILS % (AUTO) 1 % (0-1); EOSINOPHILS # (AUTO) 0.29 x10^3/uL (0-0.4); EOSINOPHILS % (AUTO) 5 % (1-7); LYMPHOCYTES # (AUTO) 1.71 x10^3/uL (1-3.4); LYMPHOCYTES % (AUTO) 28 % (22-44); MD NO; MEAN CORPUSCULAR HGB CONC 31.5 g/dL (32.4-35.8); MEAN CORPUSCULAR VOLUME 95.4 fL (80-100); MEAN PLATELET VOLUME 11.4 fL (7.4-10.4); MONOCYTES # (AUTO) 0.68 x10^3/uL (0.2-0.8); MONOCYTES % (AUTO) 11 % (2-9); NEUTROPHILS # (AUTO) 3.36 x10^3/uL (1.8-6.8); NEUTROPHILS % (AUTO) 55 % (42-75); PLATELET COUNT 155 x10^3/uL (130-400); RED BLOOD COUNT 4.37 x10^6/uL (3.82-5.3); RED CELL DISTRIBUTION WIDTH 15.4 % (9.6-15.2)
[2020-03-05 05:32] LABS: ALANINE AMINOTRANSFERASE 14 U/L (12-78); ALKALINE PHOSPHATASE 89 U/L (45-117); BILIRUBIN,TOTAL 0.2 mg/dL (0.2-1.0); CHOL/HDL RATIO 2.3; CHOLESTEROL, TOTAL 96 mg/dL (140-239); CREATININE 0.59 mg/dL (0.55-1.02); HDL CHOL % 43 % (28-40); HDL CHOLESTEROL (DIRECT) 41 mg/dL (40-60); LDL CHOLESTEROL,CALCULATED 39 mg/dL (54-169); TOTAL PROTEIN 5.7 g/dL (6.4-8.2); TRIGLYCERIDES 78 mg/dL (50-200); VLDL CHOLESTEROL 16 mg/dL (0-25)
[2020-03-05] MEDS: HEPARIN 5,000 UNITS/ML, 1ML SQ SCH ×3 (05:40→21:12)
[2020-03-05 06:31] VITALS: BP 128/76
[2020-03-05] MEDS ORDERED: MAGNESIUM SULFATE PMX 2GM/50ML 50 ML IV ONE (08:30)
[2020-03-05] MEDS: DIPHENHYDRAMINE 25 MG CAPSULE PO PRN ×3 (08:45→22:15)
[2020-03-05] MEDS: ASPIRIN 81 MG TABLET EC PO SCH (08:45)
[2020-03-05] MEDS: SENNA/DOCUSATE TABLET PO SCH (08:45)
[2020-03-05] MEDS: FOLIC ACID 1 MG TABLET PO SCH (08:45)
[2020-03-05] MEDS: THIAMINE 100MG TABLET PO SCH ×2 (08:45→21:12)
[2020-03-05] MEDS: MULTIVITAMINS/MINERALS TABLET PO SCH (08:45)
[2020-03-05 13:03] VITALS: BP 133/80
[2020-03-05 20:27] VITALS: BP 142/89
[2020-03-05] MEDS: ATORVASTATIN 40 MG TABLET PO SCH (21:12)
[2020-03-06 00:45] VITALS: BP 150/78
[2020-03-06] MEDS: ERTAPENEM 1 GM in SODIUM CHLORIDE 0.9% 50 ML IV SCH (02:18)
[2020-03-06] MEDS: HEPARIN 5,000 UNITS/ML, 1ML SQ SCH ×3 (05:09→20:24)
[2020-03-06 07:27] VITALS: BP 135/74
[2020-03-06] MEDS: ASPIRIN 81 MG TABLET EC PO SCH (08:14)
[2020-03-06] MEDS: SENNA/DOCUSATE TABLET PO SCH (08:14)
[2020-03-06] MEDS: FOLIC ACID 1 MG TABLET PO SCH (08:14)
[2020-03-06] MEDS: THIAMINE 100MG TABLET PO SCH ×2 (08:14→20:24)
[2020-03-06] MEDS: MULTIVITAMINS/MINERALS TABLET PO SCH (08:14)
[2020-03-06] MEDS: DIPHENHYDRAMINE 25 MG CAPSULE PO PRN ×3 (08:20→23:16)
[2020-03-06 13:36] VITALS: BP 116/64
[2020-03-06 18:59] VITALS: BP 104/65
[2020-03-06] MEDS: ATORVASTATIN 40 MG TABLET PO SCH (20:24)
[2020-03-06] MEDS ORDERED: ACETAMINOPHEN 325 MG TABLET ONE (20:37)
[2020-03-06] MEDS: ACETAMINOPHEN 325 MG TABLET PO PRN (20:38)
[2020-03-07 01:37] VITALS: BP 123/72
[2020-03-07] MEDS: ERTAPENEM 1 GM in SODIUM CHLORIDE 0.9% 50 ML IV SCH (02:00)
[2020-03-07] MEDS: DIPHENHYDRAMINE 25 MG CAPSULE PO PRN ×3 (05:19→19:19)
[2020-03-07] MEDS: HEPARIN 5,000 UNITS/ML, 1ML SQ SCH ×3 (05:19→21:16)
[2020-03-07 05:26] LABS: ANION GAP 5 mmol/L (5-15); CALCIUM 9.4 mg/dL (8.5-10.1); CHLORIDE 103 mmol/L (98-107)
[2020-03-07 05:32] LABS: ALANINE AMINOTRANSFERASE 16 U/L (12-78); ALBUMIN 2.7 g/dL (3.4-5.0); ALKALINE PHOSPHATASE 92 U/L (45-117); BILIRUBIN,TOTAL 0.2 mg/dL (0.2-1.0); CREATININE 0.85 mg/dL (0.55-1.02); TOTAL PROTEIN 6.6 g/dL (6.4-8.2)
[2020-03-07 05:34] LABS: BASOPHILS # (AUTO) 0.05 x10^3/uL (0-0.1); BASOPHILS % (AUTO) 1 % (0-1); EOSINOPHILS # (AUTO) 0.28 x10^3/uL (0-0.4); EOSINOPHILS % (AUTO) 4 % (1-7); LYMPHOCYTES # (AUTO) 2.04 x10^3/uL (1-3.4); LYMPHOCYTES % (AUTO) 33 % (22-44); MD NO; MEAN CORPUSCULAR HEMOGLOBIN 30.3 pg (27.0-34.8); MEAN CORPUSCULAR HGB CONC 31.6 g/dL (32.4-35.8); MEAN CORPUSCULAR VOLUME 95.8 fL (80-100); MEAN PLATELET VOLUME 10.8 fL (7.4-10.4); MONOCYTES % (AUTO) 13 % (2-9); NEUTROPHILS % (AUTO) 50 % (42-75); PLATELET COUNT 167 x10^3/uL (130-400); RED CELL DISTRIBUTION WIDTH 15.5 % (9.6-15.2)
[2020-03-07 06:16] VITALS: BP 127/83
[2020-03-07] MEDS: MULTIVITAMINS/MINERALS TABLET PO SCH (09:00)
[2020-03-07] MEDS: ASPIRIN 81 MG TABLET EC PO SCH (09:00)
[2020-03-07] MEDS: THIAMINE 100MG TABLET PO SCH ×2 (09:00→21:16)
[2020-03-07] MEDS: SENNA/DOCUSATE TABLET PO SCH (09:00)
[2020-03-07] MEDS: FOLIC ACID 1 MG TABLET PO SCH (09:00)
[2020-03-07] MEDS: ACETAMINOPHEN 325 MG TABLET PO PRN (09:10)
[2020-03-07 13:57] VITALS: BP 118/78
[2020-03-07 19:26] VITALS: BP 135/85
[2020-03-07] MEDS: ATORVASTATIN 40 MG TABLET PO SCH (21:15)
[2020-03-08 01:02] VITALS: BP 144/81
[2020-03-08] MEDS: ERTAPENEM 1 GM in SODIUM CHLORIDE 0.9% 50 ML IV SCH (01:52)
[2020-03-08] MEDS: DIPHENHYDRAMINE 25 MG CAPSULE PO PRN ×4 (01:53→21:41)
[2020-03-08] MEDS: HEPARIN 5,000 UNITS/ML, 1ML SQ SCH ×3 (05:34→21:41)
[2020-03-08 06:05] VITALS: BP 133/85
[2020-03-08] MEDS: ASPIRIN 81 MG TABLET EC PO SCH (08:40)
[2020-03-08] MEDS: FOLIC ACID 1 MG TABLET PO SCH (08:40)
[2020-03-08] MEDS: MULTIVITAMINS/MINERALS TABLET PO SCH (08:41)
[2020-03-08] MEDS: SENNA/DOCUSATE TABLET PO SCH (08:42)
[2020-03-08] MEDS: THIAMINE 100MG TABLET PO SCH ×2 (08:42→21:40)
[2020-03-08] MEDS: ONDANSETRON ODT 4 MG PO PRN (10:07)
[2020-03-08 12:01] VITALS: BP 117/72
[2020-03-08 18:26] VITALS: BP 114/68
[2020-03-08] MEDS: ATORVASTATIN 40 MG TABLET PO SCH (21:40)
[2020-03-09 00:36] VITALS: BP 109/62
[2020-03-09] MEDS: ERTAPENEM 1 GM in SODIUM CHLORIDE 0.9% 50 ML IV SCH (01:53)
[2020-03-09] MEDS: HEPARIN 5,000 UNITS/ML, 1ML SQ SCH ×3 (05:11→20:01)
[2020-03-09 06:35] VITALS: BP 144/82
[2020-03-09] MEDS ORDERED: FLUO10CA14 PO (07:32)
[2020-03-09] MEDS ORDERED: ARIP2TAB2 PO (07:32)
[2020-03-09] MEDS ORDERED: FOLI-17 PO (07:32)
[2020-03-09] MEDS ORDERED: THIA100T67 PO (07:32)
[2020-03-09] MEDS ORDERED: ASPI81TA45 PO (07:32)
[2020-03-09] MEDS ORDERED: MULT-484 PO (07:32)
[2020-03-09] MEDS: ASPIRIN 81 MG TABLET EC PO SCH (08:25)
[2020-03-09] MEDS: SENNA/DOCUSATE TABLET PO SCH (08:25)
[2020-03-09] MEDS: MULTIVITAMINS/MINERALS TABLET PO SCH (08:25)
[2020-03-09] MEDS: FLUOXETINE 10 MG CAP PO SCH (08:25)
[2020-03-09] MEDS: THIAMINE 100MG TABLET PO SCH ×2 (08:25→20:00)
[2020-03-09] MEDS: FOLIC ACID 1 MG TABLET PO SCH (08:25)
[2020-03-09] MEDS: ARIPIPRAZOLE 2 MG TABLET PO SCH (08:25)
[2020-03-09 08:43] LABS: BASOPHILS # (AUTO) 0.05 x10^3/uL (0-0.1); BASOPHILS % (AUTO) 1 % (0-1); EOSINOPHILS # (AUTO) 0.25 x10^3/uL (0-0.4); EOSINOPHILS % (AUTO) 4 % (1-7); HCT (SEDRATE) 46.4 % (34.6-47.8); LYMPHOCYTES # (AUTO) 1.56 x10^3/uL (1-3.4); LYMPHOCYTES % (AUTO) 25 % (22-44); MD NO; MEAN CORPUSCULAR HEMOGLOBIN 30.2 pg (27.0-34.8); MEAN CORPUSCULAR HGB CONC 31.8 g/dL (32.4-35.8); MEAN CORPUSCULAR VOLUME 94.8 fL (80-100); MEAN PLATELET VOLUME 10.1 fL (7.4-10.4); MONOCYTES # (AUTO) 0.49 x10^3/uL (0.2-0.8); MONOCYTES % (AUTO) 8 % (2-9); NEUTROPHILS % (AUTO) 62 % (42-75); PLATELET COUNT 174 x10^3/uL (130-400); RED BLOOD COUNT 4.93 x10^6/uL (3.82-5.3); RED CELL DISTRIBUTION WIDTH 15.7 % (9.6-15.2)
[2020-03-09 08:49] LABS: ALANINE AMINOTRANSFERASE 23 U/L (12-78); ALBUMIN 3.1 g/dL (3.4-5.0); ANION GAP 4 mmol/L (5-15); C-REACTIVE PROTEIN, QUANT 0.03 mg/dL (0.02-0.49); CALCIUM 9.6 mg/dL (8.5-10.1); CHLORIDE 106 mmol/L (98-107); CREATININE 0.71 mg/dL (0.55-1.02)
[2020-03-09 08:51] LABS: ALKALINE PHOSPHATASE 93 U/L (45-117); BILIRUBIN,TOTAL 0.2 mg/dL (0.2-1.0); TOTAL PROTEIN 7.1 g/dL (6.4-8.2)
[2020-03-09] MEDS: DIPHENHYDRAMINE 25 MG CAPSULE PO PRN ×2 (09:35→20:00)
[2020-03-09 13:34] VITALS: BP 118/70
[2020-03-09 18:22] VITALS: BP 129/68
[2020-03-09] MEDS: ATORVASTATIN 40 MG TABLET PO SCH (20:00)
[2020-03-10 01:09] VITALS: BP 135/84
[2020-03-10] MEDS: ERTAPENEM 1 GM in SODIUM CHLORIDE 0.9% 50 ML IV SCH (02:10)
[2020-03-10] MEDS: HEPARIN 5,000 UNITS/ML, 1ML SQ SCH ×2 (06:09→12:09)
[2020-03-10] MEDS: FOLIC ACID 1 MG TABLET PO SCH (07:57)
[2020-03-10] MEDS: ARIPIPRAZOLE 2 MG TABLET PO SCH (07:57)
[2020-03-10] MEDS: DIPHENHYDRAMINE 25 MG CAPSULE PO PRN (07:58)
[2020-03-10] MEDS: SENNA/DOCUSATE TABLET PO SCH (07:58)
[2020-03-10] MEDS: FLUOXETINE 10 MG CAP PO SCH (07:58)
[2020-03-10] MEDS: ASPIRIN 81 MG TABLET EC PO SCH (07:58)
[2020-03-10] MEDS: MULTIVITAMINS/MINERALS TABLET PO SCH (07:58)
[2020-03-10] MEDS: THIAMINE 100MG TABLET PO SCH (07:58)
[2020-03-10 08:04] VITALS: BP 144/80
[2020-03-10 12:10] VITALS: BP 136/85
== END 2020-03-10 13:04 | DRG 897 ==
LOC: ED 18:20 → EDIP 18:30 → 4WST 20:39
PROVIDERS: ADMIT Family Medicine; ATTEND Internal Medicine
PROC: 02HV33Z Insertion of Infusion Device into Superior Vena Cava, Percutaneous Approach (ICD-10-PCS; principal; 2020-03-09)
PROC: B5181ZA Fluoroscopy of Superior Vena Cava using Low Osmolar Contrast, Guidance (ICD-10-PCS; 2020-03-09)
PROC: B548ZZA Ultrasonography of Superior Vena Cava, Guidance (ICD-10-PCS; 2020-03-09)
DX: F10.229 Alcohol dependence with intoxication, unspecified (principal); F31.32 Bipolar disorder, current episode depressed, moderate; K70.9 Alcoholic liver disease, unspecified; E86.0 Dehydration; N30.90 Cystitis, unspecified without hematuria; E87.6 Hypokalemia; E83.42 Hypomagnesemia; B19.20 Unspecified viral hepatitis C without hepatic coma; B96.20 Unspecified Escherichia coli [E. coli] as the cause of diseases classified elsewhere; F17.210 Nicotine dependence, cigarettes, uncomplicated; I10 Essential (primary) hypertension; F41.9 Anxiety disorder, unspecified; G62.9 Polyneuropathy, unspecified; I65.21 Occlusion and stenosis of right carotid artery; J44.9 Chronic obstructive pulmonary disease, unspecified; K76.0 Fatty (change of) liver, not elsewhere classified; S90.821A Blister (nonthermal), right foot, initial encounter; W19.XXXA Unspecified fall, initial encounter; Y93.01 Activity, walking, marching and hiking; Z59.0 Homelessness; Z90.710 Acquired absence of both cervix and uterus; Z80.8 Family history of malignant neoplasm of other organs or systems; Z80.1 Family history of malignant neoplasm of trachea, bronchus and lung; S90.822A Blister (nonthermal), left foot, initial encounter; Z20.828 Contact with and (suspected) exposure to other viral communicable diseases
CPT/HCPCS: 36415; 36573; 70450; 71045; 72125; 80048; 80053; 80061; 80307; 81001; 82040; 83735; 84100; 84484; 85025; 85610; 85651; 86140; 87077; 87086; 87184; 87186; 87635; 93005; 93306; 93880; G0378; J0696; J1335; J1644; J3480; Q0162; C1751; J3475; J7030; J7040; Q0163

== ENCOUNTER 2020-04-02 20:31 | Emergency (ER) | payer MEDICARE, MEDICAID ==
[~2020-04-02] VITALS: Ht 167.6 cm; Wt 60.0 kg
[~2020-04-02 20:31] MED LIST changes: +ARIP2TAB2 PO; +ASPI81TA45 PO; +MULT-484 PO
--- NOTE | 2020-04-02 20:44 | NUR ---
64 YEAR OLD FEMALE TO ED FOR SUICIDAL IDEATIONS. SHE IS BIB [facility]. SHE IS RECENTLY HOMELESS. SHE STATES SHE IS FEELING STRESSORS FOR HER LIVING STATUS AND RELATIONSHIP PROBLEMS. HER PLAN WOULD BE TO OD ON DOWNERS. SHE ALSO STATES SHE HAS A CURRENT UTI. SHE IS CALM AND COOPERATIVE. NOT RESPONDING TO INTERNAL STIMULI.
--- NOTE | 2020-04-02 21:00 | NUR ---
PATIENT'S BELONGINGS SECURED IN LOCK BOX. PATIENT WAS ALLOWED TO KEEP HER DENTURES. SHE IS IN NO APPARENT DISTRESS. VSS. Addendum: 04/03/20 at 0324 by [id number] PATIENT'S BELONGINGS SECURED IN LOCK BOX. PATIENT WAS ALLOWED TO KEEP HER DENTURES. HER DENTURES ARE NOTED TO BE BROKEN IN HALF. SHE WAS GIVEN A STYROFOAM CUP FOR STORAGE OF HER DENTURES WHILE NOT IN USE. SHE IS IN NO APPARENT DISTRESS. VSS.
--- NOTE | 2020-04-02 21:00 | NUR ---
PATIENT RESTING IN BED. NO COMPLAINTS AT THIS TIME. SHE IS IN NO APPARENT DISTRESS, VSS.
[2020-04-02 21:32] LABS: ALANINE AMINOTRANSFERASE 32 U/L (12-78); ALBUMIN 3.4 g/dL (3.4-5.0); ANION GAP 10 mmol/L (5-15); CALCIUM 8.8 mg/dL (8.5-10.1); CHLORIDE 103 mmol/L (98-107); CREATININE 0.97 mg/dL (0.55-1.02); SALICYLATE LEVEL 2.3 mg/dL (2.8-20.0)
[2020-04-02 21:38] LABS: ALKALINE PHOSPHATASE 93 U/L (45-117); BILIRUBIN,TOTAL 1.1 mg/dL (0.2-1.0); TOTAL PROTEIN 6.9 g/dL (6.4-8.2); TROPONIN I < 0.015 ng/mL (0.000-0.045)
[2020-04-02 21:40] LABS: AMPHETAMINE SCREEN, URINE Positive (Negative); BARBITURATE SCREEN, URINE Negative (Negative); BENZODIAZEPINE SCREEN, URINE Negative (Negative); CANNABINOID SCREEN, URINE Positive (Negative); COCAINE SCREEN, URINE Negative (Negative); METHADONE SCREEN, URINE Negative (Negative); OPIATE SCREEN, URINE Negative (Negative)
[2020-04-02 21:42] LABS: MICROSCOPIC INDICATED
[2020-04-02 21:47] LABS: BASOPHILS % (AUTO) 1 % (0-1); EOSINOPHILS % (AUTO) 4 % (1-7); LYMPHOCYTES % (AUTO) 19 % (22-44); MEAN CORPUSCULAR HEMOGLOBIN 30.7 pg (27.0-34.8); MEAN PLATELET VOLUME 10.7 fL (7.4-10.4); MONOCYTES % (AUTO) 8 % (2-9); NEUTROPHILS % (AUTO) 68 % (42-75); PLATELET COUNT 142 x10^3/uL (130-400); RED BLOOD COUNT 3.72 x10^6/uL (3.82-5.3); RED CELL DISTRIBUTION WIDTH 13.7 % (9.6-15.2)
[2020-04-02 21:55] LABS: MD NO
--- NOTE | 2020-04-02 22:00 | NUR ---
PATIENT RESTING IN BED. NO COMPLAINTS AT THIS TIME. SHE IS IN NO APPARENT DISTRESS, VSS.
--- NOTE | 2020-04-02 22:27 | NUR ---
TELEPSYCH COMPUTER AT BEDSIDE. PER MD ORDER, PATIENT WAS GIVEN A MEAL AND IS TOLERATING PO.
--- NOTE | 2020-04-02 23:00 | NUR ---
PATIENT RESTING IN BED. NO COMPLAINTS AT THIS TIME. SHE IS IN NO APPARENT DISTRESS, VSS.
[2020-04-02] MEDS ORDERED: ACETAMINOPHEN 500 MG TABLET PO ONE (23:30)
[2020-04-02] MEDS ORDERED: DIPHENHYDRAMINE 50 MG CAPSULE PO ONE (23:30)
[2020-04-02] MEDS ORDERED: ACETAMINOPHEN 500 MG TABLET ONE (23:45)
[2020-04-02] MEDS ORDERED: DIPHENHYDRAMINE 50 MG CAPSULE ONE (23:45)
[2020-04-02 23:52] VITALS: BP 124/76
--- NOTE | 2020-04-02 23:58 | NUR ---
PATIENT RESTING IN BED. NO COMPLAINTS AT THIS TIME. SHE IS IN NO APPARENT DISTRESS, VSS.
--- NOTE | 2020-04-03 01:00 | NUR ---
PATIENT RESTING IN BED. NO COMPLAINTS AT THIS TIME. SHE IS IN NO APPARENT DISTRESS, VSS.
--- NOTE | 2020-04-03 01:48 | NUR ---
FAXED PAPERWORK TO [facility], [facility], [facility], [facility], [facility], AND [facility]. AWAITING ACCEPTANCE FROM FACILITIES
--- NOTE | 2020-04-03 02:00 | NUR ---
PATIENT RESTING IN BED. NO COMPLAINTS AT THIS TIME. SHE IS IN NO APPARENT DISTRESS, VSS.
--- NOTE | 2020-04-03 02:08 | NUR ---
U EVALUATING PATIETN FOR ADMISSION.
--- NOTE | 2020-04-03 03:00 | NUR ---
PATIENT RESTING IN BED. NO COMPLAINTS AT THIS TIME. SHE IS IN NO APPARENT DISTRESS, VSS.
--- NOTE | 2020-04-03 03:12 | NUR ---
REPORT GIVEN TO HANNAH IN . PREPARING TO TRANSFER PATIENT WITH BELONGINGS.
[2020-04-03] MEDS ORDERED: HYDROCORTISONE CRM 1%, 30GM TP SCH (09:00)
== END 2020-04-03 03:39 ==
LOC: ED 22:34
DX: R45.851 Suicidal ideations (principal); F19.10 Other psychoactive substance abuse, uncomplicated; L50.9 Urticaria, unspecified; R06.02 Shortness of breath; R05 Cough; R07.89 Other chest pain; R42 Dizziness and giddiness; R53.1 Weakness; R00.9 Unspecified abnormalities of heart beat; J44.9 Chronic obstructive pulmonary disease, unspecified; I10 Essential (primary) hypertension; K21.9 Gastro-esophageal reflux disease without esophagitis; F17.200 Nicotine dependence, unspecified, uncomplicated; Z90.710 Acquired absence of both cervix and uterus; Z90.721 Acquired absence of ovaries, unilateral
CPT/HCPCS: 36415; 71045; 80053; 80307; 81001; 84484; 85025; 87086; 93005; 99285

== ENCOUNTER 2020-04-03 02:53 | Inpatient (IN) | payer MEDICARE, MEDICAID ==
[~2020-04-03] VITALS: Ht 167.6 cm; Wt 62.6 kg
[~2020-04-03 02:53] MED LIST changes: -FLUO10CA14 PO; +FLUO10CA15 PO
[2020-04-03 03:58] VITALS: BP 105/65
[2020-04-03] MEDS ORDERED: DOCUSATE 100 MG CAPSULE PO PRN (04:00)
[2020-04-03] MEDS ORDERED: ONDANSETRON ODT 4 MG PO PRN (04:00)
[2020-04-03] MEDS ORDERED: PLEASE ENTER HEIGHT AND WEIGHT MC SCH (04:00)
[2020-04-03] MEDS ORDERED: POLYETHYLENE GLYCOL 17 GM PACKET PO PRN (04:00)
[2020-04-03] MEDS ORDERED: BISACODYL 10 MG SUPP PR PRN (04:00)
[2020-04-03 04:51] VITALS: BP 107/65
[2020-04-03 04:52] VITALS: BP 107/63
[2020-04-03] MEDS ORDERED: HYDROCORTISONE CRM 1%, 30GM TP ONE (05:00)
[2020-04-03] MEDS ORDERED: DIPHENHYDRAMINE 50 MG CAPSULE PO ONE (05:00)
[2020-04-03 07:23] VITALS: BP 110/70
[2020-04-03] MEDS ORDERED: NICOTINE 14MG/24 HR PATCH.TD24 TD ONE (09:00)
[2020-04-03 09:40] LABS: FREE T4 (FREE THYROXINE) 1.38 ng/dL (0.76-1.46)
[2020-04-03] MEDS ORDERED: NICOTINE 21 MG/24 HR PATCH.TD24 TD ONE (12:30)
[2020-04-03] MEDS: FLUOXETINE 10 MG CAP PO SCH (12:33)
[2020-04-03] MEDS: ARIPIPRAZOLE 2 MG TABLET PO SCH (12:33)
[2020-04-03] MEDS ORDERED: NICOTINE 21 MG/24 HR PATCH.TD24 TD PRN (13:00)
[2020-04-03 13:45] LABS: ALANINE AMINOTRANSFERASE 27 U/L (12-78); ALBUMIN 3.1 g/dL (3.4-5.0); ANION GAP 9 mmol/L (5-15); CALCIUM 8.7 mg/dL (8.5-10.1); CHLORIDE 105 mmol/L (98-107); CREATININE 1.03 mg/dL (0.55-1.02)
[2020-04-03 13:48] LABS: ALKALINE PHOSPHATASE 99 U/L (45-117); BILIRUBIN,TOTAL 0.7 mg/dL (0.2-1.0); TOTAL PROTEIN 6.8 g/dL (6.4-8.2)
[2020-04-03] MEDS: ACETAMINOPHEN 325 MG TABLET PO PRN (14:34)
[2020-04-03] MEDS: GABAPENTIN 400 MG CAPSULE PO SCH ×2 (16:14→20:25)
[2020-04-03] MEDS ORDERED: POTASSIUM CHLORIDE 20 MEQ TAB.ER.PRT PO SCH (17:00)
[2020-04-03 19:23] VITALS: BP 98/62
[2020-04-04 07:11] VITALS: BP 120/70
[2020-04-04] MEDS: GABAPENTIN 400 MG CAPSULE PO SCH ×3 (08:29→20:36)
[2020-04-04] MEDS: FLUOXETINE 10 MG CAP PO SCH (08:29)
[2020-04-04] MEDS: ARIPIPRAZOLE 2 MG TABLET PO SCH (08:29)
[2020-04-04] MEDS ORDERED: POTASSIUM CHLORIDE 20 MEQ TAB.ER.PRT PO ONE (08:30)
[2020-04-04] MEDS: NICOTINE 14MG/24 HR PATCH.TD24 TD SCH (08:32)
[2020-04-04] MEDS: MAGNESIUM OXIDE 400 MG TABLET PO SCH ×2 (08:59→20:36)
[2020-04-04] MEDS: ACETAMINOPHEN 325 MG TABLET PO PRN (08:59)
[2020-04-04] MEDS ORDERED: PHENAZOPYRIDINE 100 MG TABLET PO PRN (13:30)
[2020-04-04 19:11] VITALS: BP 119/72
[2020-04-05 07:00] VITALS: BP 143/82
[2020-04-05 07:37] LABS: ANION GAP 3 mmol/L (5-15); CALCIUM 8.8 mg/dL (8.5-10.1); CHLORIDE 110 mmol/L (98-107); CREATININE 0.56 mg/dL (0.55-1.02)
[2020-04-05] MEDS: NICOTINE 14MG/24 HR PATCH.TD24 TD SCH (08:54)
[2020-04-05] MEDS: FLUOXETINE 10 MG CAP PO SCH (08:54)
[2020-04-05] MEDS: ARIPIPRAZOLE 2 MG TABLET PO SCH (08:54)
[2020-04-05] MEDS: GABAPENTIN 400 MG CAPSULE PO SCH ×3 (08:54→20:43)
[2020-04-05] MEDS: MAGNESIUM OXIDE 400 MG TABLET PO SCH ×2 (08:54→20:42)
[2020-04-05] MEDS: ACETAMINOPHEN 325 MG TABLET PO PRN ×2 (16:55→20:55)
[2020-04-05 19:28] VITALS: BP 122/71
[2020-04-06 07:17] VITALS: BP 117/69
[2020-04-06] MEDS: NICOTINE 14MG/24 HR PATCH.TD24 TD SCH (07:56)
[2020-04-06] MEDS: MAGNESIUM OXIDE 400 MG TABLET PO SCH ×2 (07:56→20:53)
[2020-04-06] MEDS: ARIPIPRAZOLE 2 MG TABLET PO SCH (07:56)
[2020-04-06] MEDS: ACETAMINOPHEN 325 MG TABLET PO PRN ×2 (07:56→12:07)
[2020-04-06] MEDS: GABAPENTIN 400 MG CAPSULE PO SCH ×3 (07:56→20:53)
[2020-04-06] MEDS: FLUOXETINE 10 MG CAP PO SCH (07:56)
[2020-04-06] MEDS: LIDODERM 5% PATCH TD SCH (16:09)
[2020-04-06 20:05] VITALS: BP 132/82
[2020-04-06] MEDS: TRAZODONE 100MG TABLET PO PRN (20:52)
[2020-04-07 07:24] VITALS: BP 107/68
[2020-04-07] MEDS: GABAPENTIN 400 MG CAPSULE PO SCH ×3 (08:31→20:23)
[2020-04-07] MEDS: MAGNESIUM OXIDE 400 MG TABLET PO SCH ×2 (08:31→20:23)
[2020-04-07] MEDS: NICOTINE 14MG/24 HR PATCH.TD24 TD SCH (08:31)
[2020-04-07] MEDS: ARIPIPRAZOLE 2 MG TABLET PO SCH (08:31)
[2020-04-07] MEDS: FLUOXETINE 10 MG CAP PO SCH (08:31)
[2020-04-07] MEDS: ACETAMINOPHEN 325 MG TABLET PO PRN ×2 (10:20→15:07)
[2020-04-07] MEDS: LIDODERM 5% PATCH TD SCH (16:12)
[2020-04-07 19:07] VITALS: BP 99/64
[2020-04-07] MEDS: TRAZODONE 100MG TABLET PO PRN (20:23)
[2020-04-08 07:00] VITALS: BP 106/70
[2020-04-08] MEDS: ARIPIPRAZOLE 2 MG TABLET PO SCH (08:26)
[2020-04-08] MEDS: FLUOXETINE 10 MG CAP PO SCH (08:26)
[2020-04-08] MEDS: MAGNESIUM OXIDE 400 MG TABLET PO SCH ×2 (08:26→20:18)
[2020-04-08] MEDS: GABAPENTIN 400 MG CAPSULE PO SCH ×3 (08:26→20:18)
[2020-04-08] MEDS: NICOTINE 14MG/24 HR PATCH.TD24 TD SCH (08:29)
[2020-04-08] MEDS: ACETAMINOPHEN 325 MG TABLET PO PRN ×2 (14:32→20:18)
[2020-04-08] MEDS: LIDODERM 5% PATCH TD SCH (16:17)
[2020-04-08 19:37] VITALS: BP 100/62
[2020-04-08] MEDS: TRAZODONE 100MG TABLET PO PRN (20:18)
[2020-04-09 07:10] VITALS: BP 109/70
[2020-04-09] MEDS: ARIPIPRAZOLE 2 MG TABLET PO SCH (08:19)
[2020-04-09] MEDS: FLUOXETINE 10 MG CAP PO SCH (08:19)
[2020-04-09] MEDS: GABAPENTIN 400 MG CAPSULE PO SCH ×3 (08:19→20:27)
[2020-04-09] MEDS: MAGNESIUM OXIDE 400 MG TABLET PO SCH ×2 (08:19→20:27)
[2020-04-09] MEDS: NICOTINE 14MG/24 HR PATCH.TD24 TD SCH (08:20)
[2020-04-09] MEDS: LIDODERM 5% PATCH TD SCH (15:54)
[2020-04-09 18:56] VITALS: BP 115/68
[2020-04-09] MEDS: TRAZODONE 100MG TABLET PO PRN (20:27)
[2020-04-10 07:05] VITALS: BP 117/67
[2020-04-10] MEDS: FLUOXETINE 10 MG CAP PO SCH (08:08)
[2020-04-10] MEDS: ARIPIPRAZOLE 2 MG TABLET PO SCH (08:08)
[2020-04-10] MEDS: GABAPENTIN 400 MG CAPSULE PO SCH ×3 (08:08→21:09)
[2020-04-10] MEDS: NICOTINE 14MG/24 HR PATCH.TD24 TD SCH (08:09)
[2020-04-10] MEDS: LIDODERM 5% PATCH TD SCH (16:04)
[2020-04-10 19:30] VITALS: BP 103/65
[2020-04-10] MEDS: TRAZODONE 100MG TABLET PO PRN (21:10)
[2020-04-11 07:13] VITALS: BP 121/70
[2020-04-11] MEDS: ARIPIPRAZOLE 2 MG TABLET PO SCH (08:31)
[2020-04-11] MEDS: GABAPENTIN 400 MG CAPSULE PO SCH ×3 (08:32→20:09)
[2020-04-11] MEDS: FLUOXETINE 10 MG CAP PO SCH (08:32)
[2020-04-11] MEDS: NICOTINE 14MG/24 HR PATCH.TD24 TD SCH (08:34)
[2020-04-11] MEDS: LIDODERM 5% PATCH TD SCH (15:52)
[2020-04-11 19:52] VITALS: BP 106/64
[2020-04-11] MEDS: TRAZODONE 100MG TABLET PO PRN (20:09)
[2020-04-12 07:25] VITALS: BP 109/67
[2020-04-12] MEDS: GABAPENTIN 400 MG CAPSULE PO SCH ×3 (08:27→21:04)
[2020-04-12] MEDS: NICOTINE 14MG/24 HR PATCH.TD24 TD SCH (08:27)
[2020-04-12] MEDS: ARIPIPRAZOLE 2 MG TABLET PO SCH (08:28)
[2020-04-12] MEDS: FLUOXETINE 10 MG CAP PO SCH (08:28)
[2020-04-12] MEDS: LIDODERM 5% PATCH TD SCH (15:05)
[2020-04-12] MEDS: ACETAMINOPHEN 325 MG TABLET PO PRN (15:05)
[2020-04-12 19:11] VITALS: BP 102/62
[2020-04-12] MEDS: TRAZODONE 100MG TABLET PO PRN (20:50)
[2020-04-13 07:22] VITALS: BP 123/74
[2020-04-13] MEDS: GABAPENTIN 400 MG CAPSULE PO SCH ×3 (08:08→20:27)
[2020-04-13] MEDS: FLUOXETINE 10 MG CAP PO SCH (08:08)
[2020-04-13] MEDS: ARIPIPRAZOLE 2 MG TABLET PO SCH (08:08)
[2020-04-13] MEDS: NICOTINE 14MG/24 HR PATCH.TD24 TD SCH (08:09)
[2020-04-13] MEDS: LIDODERM 5% PATCH TD SCH (15:33)
[2020-04-13] MEDS: ACETAMINOPHEN 325 MG TABLET PO PRN (15:33)
[2020-04-13 20:07] VITALS: BP 113/70
[2020-04-13] MEDS: TRAZODONE 100MG TABLET PO PRN (20:27)
[2020-04-14 07:00] VITALS: BP 106/69
[2020-04-14] MEDS: NICOTINE 14MG/24 HR PATCH.TD24 TD SCH (08:06)
[2020-04-14] MEDS: GABAPENTIN 400 MG CAPSULE PO SCH ×3 (08:07→20:37)
[2020-04-14] MEDS: ACETAMINOPHEN 325 MG TABLET PO PRN ×2 (08:07→16:41)
[2020-04-14] MEDS: FLUOXETINE 10 MG CAP PO SCH (08:07)
[2020-04-14] MEDS: ARIPIPRAZOLE 2 MG TABLET PO SCH (08:07)
[2020-04-14] MEDS: LIDODERM 5% PATCH TD SCH (16:41)
[2020-04-14 18:57] VITALS: BP 112/61
[2020-04-14] MEDS: TRAZODONE 100MG TABLET PO PRN (20:37)
[2020-04-15 06:32] VITALS: BP 132/75
[2020-04-15] MEDS: GABAPENTIN 400 MG CAPSULE PO SCH ×3 (08:41→20:53)
[2020-04-15] MEDS: ARIPIPRAZOLE 2 MG TABLET PO SCH (08:41)
[2020-04-15] MEDS: FLUOXETINE 10 MG CAP PO SCH (08:42)
[2020-04-15] MEDS: NICOTINE 14MG/24 HR PATCH.TD24 TD SCH (08:45)
[2020-04-15] MEDS ORDERED: NAPROXEN 500 MG TABLET PO PRN (15:00)
[2020-04-15] MEDS: LIDODERM 5% PATCH TD SCH (15:13)
[2020-04-15 20:05] VITALS: BP 93/85
[2020-04-15 20:35] VITALS: BP 106/83
[2020-04-15] MEDS: TRAZODONE 100MG TABLET PO PRN (20:53)
[2020-04-16 07:42] VITALS: BP 133/82
[2020-04-16] MEDS: GABAPENTIN 400 MG CAPSULE PO SCH ×3 (08:21→20:13)
[2020-04-16] MEDS: FLUOXETINE 10 MG CAP PO SCH (08:21)
[2020-04-16] MEDS: ARIPIPRAZOLE 2 MG TABLET PO SCH (08:21)
[2020-04-16] MEDS: NICOTINE 14MG/24 HR PATCH.TD24 TD SCH (08:21)
[2020-04-16] MEDS: LIDODERM 5% PATCH TD SCH (16:06)
[2020-04-16 18:45] VITALS: BP 108/67
[2020-04-16] MEDS: TRAZODONE 100MG TABLET PO PRN (20:13)
[2020-04-17 07:16] VITALS: BP 117/76
[2020-04-17 07:35] LABS: MICROSCOPIC INDICATED
[2020-04-17] MEDS: ARIPIPRAZOLE 2 MG TABLET PO SCH (08:27)
[2020-04-17] MEDS: GABAPENTIN 400 MG CAPSULE PO SCH ×3 (08:27→20:14)
[2020-04-17] MEDS: FLUOXETINE 10 MG CAP PO SCH (08:27)
[2020-04-17] MEDS: NICOTINE 14MG/24 HR PATCH.TD24 TD SCH (08:29)
[2020-04-17] MEDS: LIDODERM 5% PATCH TD SCH (15:10)
[2020-04-17 20:00] VITALS: BP 114/60
[2020-04-17] MEDS: TRAZODONE 100MG TABLET PO PRN (20:14)
[2020-04-18 07:30] VITALS: BP 112/74
[2020-04-18] MEDS: ARIPIPRAZOLE 2 MG TABLET PO SCH (08:46)
[2020-04-18] MEDS: GABAPENTIN 400 MG CAPSULE PO SCH ×3 (08:46→20:07)
[2020-04-18] MEDS: FLUOXETINE 10 MG CAP PO SCH (08:46)
[2020-04-18] MEDS: NICOTINE 14MG/24 HR PATCH.TD24 TD SCH (08:47)
[2020-04-18] MEDS: LIDODERM 5% PATCH TD SCH (15:35)
[2020-04-18 19:30] VITALS: BP 113/74
[2020-04-18] MEDS: TRAZODONE 100MG TABLET PO PRN (20:05)
[2020-04-19 07:54] VITALS: BP 117/73
[2020-04-19] MEDS: ARIPIPRAZOLE 2 MG TABLET PO SCH (09:21)
[2020-04-19] MEDS: NICOTINE 14MG/24 HR PATCH.TD24 TD SCH (09:21)
[2020-04-19] MEDS: FLUOXETINE 10 MG CAP PO SCH (09:21)
[2020-04-19] MEDS: GABAPENTIN 400 MG CAPSULE PO SCH ×3 (09:21→20:10)
[2020-04-19] MEDS ORDERED: FLUO10CA15 PO (14:53)
[2020-04-19] MEDS ORDERED: ARIP2TAB2 PO (14:53)
[2020-04-19] MEDS ORDERED: TRAZ-175 PO (14:53)
[2020-04-19] MEDS ORDERED: NAPR-856 PO (14:53)
[2020-04-19] MEDS ORDERED: HYDR-826 PO (14:53)
[2020-04-19] MEDS: LIDODERM 5% PATCH TD SCH (15:16)
[2020-04-19 19:38] VITALS: BP 121/68
[2020-04-19] MEDS: TRAZODONE 100MG TABLET PO PRN (20:23)
[2020-04-20 07:25] VITALS: BP 107/67
[2020-04-20] MEDS: FLUOXETINE 10 MG CAP PO SCH (08:45)
[2020-04-20] MEDS: GABAPENTIN 400 MG CAPSULE PO SCH (08:45)
[2020-04-20] MEDS: ARIPIPRAZOLE 2 MG TABLET PO SCH (08:45)
[2020-04-20] MEDS: NICOTINE 14MG/24 HR PATCH.TD24 TD SCH (08:46)
== END 2020-04-20 14:30 | disposition home or self-care (01) | DRG 885 ==
LOC: 3E 03:40
PROVIDERS: ADMIT Psychiatry & Neurology Psychosomatic Medicine; ATTEND Psychiatry & Neurology Psychosomatic Medicine
DX: F31.30 Bipolar disorder, current episode depressed, mild or moderate severity, unspecified (principal); F11.20 Opioid dependence, uncomplicated; F15.20 Other stimulant dependence, uncomplicated; R45.851 Suicidal ideations; F10.10 Alcohol abuse, uncomplicated; F17.200 Nicotine dependence, unspecified, uncomplicated; F43.10 Post-traumatic stress disorder, unspecified; G47.00 Insomnia, unspecified; G89.29 Other chronic pain; F39 Unspecified mood [affective] disorder; R30.0 Dysuria; L28.0 Lichen simplex chronicus; Z20.828 Contact with and (suspected) exposure to other viral communicable diseases; Z79.899 Other long term (current) drug therapy; Z90.710 Acquired absence of both cervix and uterus; Z80.1 Family history of malignant neoplasm of trachea, bronchus and lung; Z82.49 Family history of ischemic heart disease and other diseases of the circulatory system
CPT/HCPCS: 36415; 80048; 80053; 81001; 82962; 83036; 83735; 84100; 84439; 84443; 87086; 87426; Q0177

== ENCOUNTER 2020-07-07 05:30 | Emergency (ER) | payer MEDICARE, MEDICAID ==
[~2020-07-07] VITALS: Ht 167.6 cm; Wt 55.0 kg
[~2020-07-07 05:30] MED LIST changes: +HYDR-826 PO; +NAPR-856 PO; -NICO-487 TD; +NICO-587 TD; +TRAZ-175 PO
--- NOTE | 2020-07-07 05:40 | NUR ---
Pt refusing to get into gown to be examined.
--- NOTE | 2020-07-07 05:54 | NUR ---
Dr Simpson in to examine/interview pt.
--- NOTE | 2020-07-07 06:16 | NUR ---
Pt refuses to provide urine sample.
--- NOTE | 2020-07-07 06:19 | NUR ---
Pt walks out of room to nursing station with a very steady gait to complain that she is not getting any pain medications etc.
[2020-07-07] MEDS ORDERED: ACETAMINOPHEN 500 MG TABLET ONE (06:27)
[2020-07-07] MEDS ORDERED: ACETAMINOPHEN 500 MG TABLET PO ONE (06:30)
--- NOTE | 2020-07-07 06:32 | NUR ---
Pt argumentative, walking down [address]. Pt did provide urine; sent to lab. Pt medicated with tylenol, taken to xray.
--- NOTE | 2020-07-07 06:43 | NUR ---
Pt back from xray.
[2020-07-07 06:45] LABS: MICROSCOPIC INDICATED
--- NOTE | 2020-07-07 06:52 | NUR ---
RECVD REPORT FROM TRISTA GODINEZ. PATIENT IS RESTING COMFORTABLY REQUESTING FOOD, DRINK, AND SOCKS. ADVISED NOTHING TO EAT OR DRINK UNTIL ALL RESULTS ARE BACK. PROVIDED SOCKS. CALL LIGHT WITHIN REACH, NO OTHER NEEDS VERBALIZED AT THIS TIME.
--- NOTE | 2020-07-07 07:32 | NUR ---
pt to ct
--- NOTE | 2020-07-07 07:33 | NUR ---
PT DENIES TAKING ANY DAILY MEDICATIONS AT THIS TIME. MED REC UPDATED.
--- NOTE | 2020-07-07 07:39 | NUR ---
PT BACK FROM CT RESTING COMFORTABLY, CALL LIGHT WITHIN REACH
--- NOTE | 2020-07-07 07:54 | NUR ---
PT SLEEPING IN BED. UPDATED VITALS AND PT STATES HER PAIN IS 7/10.
--- NOTE | 2020-07-07 07:55 | NUR ---
PT STATES SHE IS HOMELESS. PRISON INFORMATION GIVEN.
[2020-07-07 07:56] VITALS: BP 125/66
--- NOTE | 2020-07-07 08:46 | NUR ---
Patient/Caregiver given discharge instructions and they have confirmed that they understand the instructions. Patient ambulatory with steady gait.
== END 2020-07-07 08:48 | disposition home or self-care (01) ==
LOC: ED 05:36
DX: S80.02XA Contusion of left knee, initial encounter (principal); S70.12XA Contusion of left thigh, initial encounter; S70.02XA Contusion of left hip, initial encounter; S30.1XXA Contusion of abdominal wall, initial encounter; S09.90XA Unspecified injury of head, initial encounter; J44.9 Chronic obstructive pulmonary disease, unspecified; K21.9 Gastro-esophageal reflux disease without esophagitis; I10 Essential (primary) hypertension; Z90.721 Acquired absence of ovaries, unilateral; Z90.710 Acquired absence of both cervix and uterus; Y04.8XXA Assault by other bodily force, initial encounter; Y93.89 Activity, other specified; Y92.89 Other specified places as the place of occurrence of the external cause; Y99.8 Other external cause status
CPT/HCPCS: 70450; 81001; 87086; 99285

== ENCOUNTER 2020-08-20 19:48 | Emergency (ER) | payer MEDICARE, MEDICAID ==
[~2020-08-20] VITALS: Ht 162.6 cm; Wt 54.5 kg
[~2020-08-20 19:48] MED LIST changes: -FOLI-17 PO; +FOLI1TAB32 PO
--- NOTE | 2020-08-20 19:53 | NUR ---
BIB EMS FROM THE [facility] FOR +ETOH. THE RETAIL AND PROMOTIONS COORDINATOR CALLED 911. PT BROUGHT IN. C/O GEN MALAISE. DRANK 1/2 PINT VODKA VP CLINICAL. WAS SEEN AT [facility] FOR UNKNOWN REASON. PT STATES SHE DID METH 5 DAYS AGO. VSS VP CLINICAL PER EMS. MONITORS APPLIED. PT RESTING ON GURNEY. NADN. VSS.
--- NOTE | 2020-08-20 20:21 | NUR ---
pt sitting in gurney with no signs or symptoms of acute distress noted respirations even and unlabored.
--- NOTE | 2020-08-20 20:46 | NUR ---
pt able to ambulate to bathroom walked with this rn as standy by assist, walked with steady gait and good balance, able to provide urine for lab. pt returned safely to bed, states she would like to rest. pt in bed with lights off in room for comfort, blankets around self and even unlabored respirations. no signs or symptoms of acute distress noted.
[2020-08-20 21:11] LABS: BASOPHILS % (AUTO) 2 % (0-1); EOSINOPHILS % (AUTO) 5 % (1-7); LYMPHOCYTES % (AUTO) 42 % (22-44); MEAN CORPUSCULAR HEMOGLOBIN 29.2 pg (27.0-34.8); MEAN CORPUSCULAR HGB CONC 32.7 g/dL (32.4-35.8); MEAN PLATELET VOLUME 9.8 fL (7.4-10.4); MONOCYTES % (AUTO) 10 % (2-9); NEUTROPHILS % (AUTO) 42 % (42-75); PLATELET COUNT 203 x10^3/uL (130-400); RED BLOOD COUNT 4.95 x10^6/uL (3.82-5.3); RED CELL DISTRIBUTION WIDTH 15.1 % (9.6-15.2)
[2020-08-20 21:17] LABS: MD NO
[2020-08-20 21:21] LABS: ALANINE AMINOTRANSFERASE 19 U/L (12-78); ALBUMIN 3.3 g/dL (3.4-5.0); ANION GAP 7 mmol/L (5-15); CALCIUM 8.6 mg/dL (8.5-10.1); CHLORIDE 108 mmol/L (98-107); CREATININE 0.75 mg/dL (0.55-1.02)
[2020-08-20 21:22] LABS: SALICYLATE LEVEL < 1.7 mg/dL (2.8-20.0)
[2020-08-20 21:23] LABS: ALKALINE PHOSPHATASE 123 U/L (45-117); BILIRUBIN,TOTAL 0.2 mg/dL (0.2-1.0); TOTAL PROTEIN 7.1 g/dL (6.4-8.2)
[2020-08-20 21:26] LABS: AMPHETAMINE SCREEN, URINE Negative (Negative); BARBITURATE SCREEN, URINE Negative (Negative); BENZODIAZEPINE SCREEN, URINE Positive (Negative); CANNABINOID SCREEN, URINE Negative (Negative); COCAINE SCREEN, URINE Negative (Negative); METHADONE SCREEN, URINE Negative (Negative); OPIATE SCREEN, URINE Negative (Negative)
--- NOTE | 2020-08-20 21:32 | NUR ---
pt resting quietly in bed with lights off in room and blanket around self. no signs or symptoms of acute distress noted respirations even and unlabored
--- NOTE | 2020-08-20 22:51 | NUR ---
pt in bed with no signs or symptoms of acute distress noted respirations even and unlabored lights off in room for comfort
--- NOTE | 2020-08-20 23:33 | NUR ---
pt up to ambulate to bathroom walked with rn as standby assist returned safely to bed pt states shes feeling better, provided a snack and a bottle of water. pt verbalizes appreciation for cares and concern no signs or symptoms of acute distress noted respiraitons even and unlabored.
--- NOTE | 2020-08-21 00:05 | NUR ---
pt resting quietly in bed with eyes closed and even unlabored respirations no signs or symptoms of acute distress noted
--- NOTE | 2020-08-21 00:38 | NUR ---
.085 BA. Pt A&O with no complaints.
--- NOTE | 2020-08-21 02:24 | NUR ---
Pt resting calmly, awakes easily to verabl stimulit. VSS. Warm blanket offered. Pt back to sleep and resting with no distress. Will continue to monitor.
[2020-08-21] MEDS ORDERED: MAALOX/HYOSCYAMINE/LIDOCAINE 45 ML BTL ONE (04:16)
--- NOTE | 2020-08-21 04:27 | NUR ---
Pt medicated for heartburn per order. Pt resting calmly with no changes.
[2020-08-21] MEDS ORDERED: MAALOX/HYOSCYAMINE/LIDOCAINE 45 ML BTL PO ONE (04:30)
--- NOTE | 2020-08-21 07:00 | NUR ---
PT REPORT REC'VD FROM GRETCHEN GIVENS
--- NOTE | 2020-08-21 07:11 | NUR ---
PT RESTING ON ED GURNEY, EYES OPEN. PT VSS. PT STATES SHE IS STARTING TO FEEL SHAKY FROM NOT HAVING ALCOHOL. PT LAST DRINK WAS YESTERDAY AFTERNOON. PT ALSO STATING SHE IS HUNGRY AND REQUESTED MILK. ALL NEEDS MET AT THIS TIME.
[2020-08-21] MEDS ORDERED: CHLORDIAZEPOXIDE 10 MG CAPSULE ONE (08:23)
[2020-08-21] MEDS ORDERED: CHLORDIAZEPOXIDE 10 MG CAPSULE PO PRN (08:30)
[2020-08-21 11:20] VITALS: BP 119/56
--- NOTE | 2020-08-21 12:24 | NUR ---
PSYCH INSTRUMENT INSTALLER BEDSIDE
--- NOTE | 2020-08-21 13:38 | NUR ---
PHONE REPORT TO GRETCHEN BARRETT
== END 2020-08-21 13:56 ==
LOC: ED 08-21 01:31 → EDIP 08-21 07:45 → UNDOADMOB 08-21 07:45 → ED 08-21 13:56
DX: R45.851 Suicidal ideations (principal); Z20.822 Contact with and (suspected) exposure to COVID-19; F10.220 Alcohol dependence with intoxication, uncomplicated; F33.9 Major depressive disorder, recurrent, unspecified; R11.2 Nausea with vomiting, unspecified; Y90.0 Blood alcohol level of less than 20 mg/100 ml
CPT/HCPCS: 36415; 80053; 80299; 80307; 80320; 80329; 85025; 87426; 99285; G0480

== ENCOUNTER 2020-09-01 20:26 | Emergency (ER) | payer MEDICARE, MEDICAID ==
[~2020-09-01] VITALS: Ht 165.1 cm; Wt 58.9 kg
[~2020-09-01 20:26] MED LIST changes: +ALBU18HF INH; +HYDR50CA2 PO; +Multivitamin PO
[2020-09-01] MEDS ORDERED: ONDANSETRON ODT 4 MG PO ONE (21:00)
[2020-09-01 21:04] LABS: BASOPHILS % (AUTO) 1 % (0-1); EOSINOPHILS % (AUTO) 4 % (1-7); LYMPHOCYTES % (AUTO) 32 % (22-44); MEAN CORPUSCULAR HEMOGLOBIN 30.1 pg (27.0-34.8); MEAN CORPUSCULAR HGB CONC 33.3 g/dL (32.4-35.8); MEAN PLATELET VOLUME 9.2 fL (7.4-10.4); MONOCYTES % (AUTO) 6 % (2-9); NEUTROPHILS % (AUTO) 56 % (42-75); PLATELET COUNT 267 x10^3/uL (130-400); RED BLOOD COUNT 4.79 x10^6/uL (3.82-5.3); RED CELL DISTRIBUTION WIDTH 14.1 % (9.6-15.2)
[2020-09-01 21:05] LABS: MD NO
[2020-09-01 21:16] LABS: ALANINE AMINOTRANSFERASE 21 U/L (12-78); ALBUMIN 3.8 g/dL (3.4-5.0); ANION GAP 3 mmol/L (5-15); CALCIUM 9.7 mg/dL (8.5-10.1); CHLORIDE 106 mmol/L (98-107); CREATININE 0.86 mg/dL (0.55-1.02)
[2020-09-01 21:19] LABS: ALKALINE PHOSPHATASE 115 U/L (45-117); BILIRUBIN,TOTAL 0.2 mg/dL (0.2-1.0); SALICYLATE LEVEL < 1.7 mg/dL (2.8-20.0); TROPONIN I < 0.015 ng/mL (0.000-0.045)
[2020-09-01 21:54] VITALS: BP 110/74
--- NOTE | 2020-09-01 21:55 | NUR ---
pt states she does not have any si or hi now. spoke with erp and told them the same thing. pt changing, will provide bus pass as well
[2020-09-01 22:05] LABS: MICROSCOPIC AUTO
[2020-09-01 22:16] LABS: AMPHETAMINE SCREEN, URINE Negative (Negative); BARBITURATE SCREEN, URINE Negative (Negative); BENZODIAZEPINE SCREEN, URINE Positive (Negative); CANNABINOID SCREEN, URINE Negative (Negative); COCAINE SCREEN, URINE Negative (Negative); METHADONE SCREEN, URINE Negative (Negative); OPIATE SCREEN, URINE Negative (Negative)
== END 2020-09-01 22:15 | disposition home or self-care (01) ==
LOC: ED 21:00
DX: F10.120 Alcohol abuse with intoxication, uncomplicated (principal); F15.10 Other stimulant abuse, uncomplicated; R45.851 Suicidal ideations; F32.9 Major depressive disorder, single episode, unspecified; R10.13 Epigastric pain; R11.2 Nausea with vomiting, unspecified; K21.9 Gastro-esophageal reflux disease without esophagitis; I10 Essential (primary) hypertension; J44.9 Chronic obstructive pulmonary disease, unspecified; Z72.9 Problem related to lifestyle, unspecified; Y90.0 Blood alcohol level of less than 20 mg/100 ml
CPT/HCPCS: 36415; 80053; 80299; 80307; 80320; 80329; 81001; 83690; 84484; 85025; 87086; 87186; 93005; 99284; G0480

== ENCOUNTER 2020-10-06 21:06 | Emergency (ER) | payer MEDICARE, MEDICAID ==
[~2020-10-06] VITALS: Ht 165.1 cm; Wt 68.0 kg
[2020-10-06] MEDS ORDERED: ONDANSETRON ODT 4 MG PO ONE (21:30)
[2020-10-06 21:57] LABS: BASOPHILS % (AUTO) 1 % (0-1); EOSINOPHILS % (AUTO) 3 % (1-7); LYMPHOCYTES % (AUTO) 42 % (22-44); MEAN CORPUSCULAR HEMOGLOBIN 28.7 pg (27.0-34.8); MEAN CORPUSCULAR HGB CONC 32.5 g/dL (32.4-35.8); MEAN PLATELET VOLUME 9.7 fL (7.4-10.4); MONOCYTES % (AUTO) 8 % (2-9); NEUTROPHILS % (AUTO) 48 % (42-75); PLATELET COUNT 244 x10^3/uL (130-400); RED BLOOD COUNT 5.14 x10^6/uL (3.82-5.3); RED CELL DISTRIBUTION WIDTH 15.2 % (9.6-15.2)
[2020-10-06 22:02] LABS: ALANINE AMINOTRANSFERASE 45 U/L (12-78); ALBUMIN 3.8 g/dL (3.4-5.0); ANION GAP 14 mmol/L (5-15); CHLORIDE 100 mmol/L (98-107); CREATININE 0.92 mg/dL (0.55-1.02); MD NO
[2020-10-06 22:06] LABS: ALKALINE PHOSPHATASE 139 U/L (45-117); BILIRUBIN,TOTAL 2.1 mg/dL (0.2-1.0); TOTAL PROTEIN 7.7 g/dL (6.4-8.2); TROPONIN I < 0.015 ng/mL (0.000-0.045)
[2020-10-06 22:16] VITALS: BP 135/87
== END 2020-10-06 23:09 | disposition home or self-care (01) ==
LOC: ED 21:21
DX: R11.2 Nausea with vomiting, unspecified (principal); R07.9 Chest pain, unspecified; Z72.9 Problem related to lifestyle, unspecified; F10.10 Alcohol abuse, uncomplicated; K21.9 Gastro-esophageal reflux disease without esophagitis; Y90.0 Blood alcohol level of less than 20 mg/100 ml
CPT/HCPCS: 36415; 71045; 80053; 83690; 84484; 85025; 93005; 99285

== ENCOUNTER 2020-10-12 06:09 | Emergency (ER) | payer MEDICARE, MEDICAID ==
[~2020-10-12] VITALS: Ht 165.1 cm; Wt 55.0 kg
[2020-10-12] MEDS ORDERED: ASPIRIN 81 MG TABLET CHEW PO ONE (07:00)
[2020-10-12] MEDS ORDERED: ASPIRIN 81 MG TABLET CHEW ONE (07:02)
[2020-10-12 07:05] LABS: BASOPHILS % (AUTO) 1 % (0-1); EOSINOPHILS % (AUTO) 3 % (1-7); LYMPHOCYTES % (AUTO) 30 % (22-44); MEAN CORPUSCULAR HEMOGLOBIN 28.8 pg (27.0-34.8); MEAN CORPUSCULAR HGB CONC 32.3 g/dL (32.4-35.8); MONOCYTES % (AUTO) 12 % (2-9); NEUTROPHILS % (AUTO) 54 % (42-75); PLATELET COUNT 96 x10^3/uL (130-400); RED BLOOD COUNT 4.25 x10^6/uL (3.82-5.3); RED CELL DISTRIBUTION WIDTH 15.2 % (9.6-15.2)
[2020-10-12 07:08] LABS: ALANINE AMINOTRANSFERASE 39 U/L (12-78); ALBUMIN 3.4 g/dL (3.4-5.0); ANION GAP 10 mmol/L (5-15); CALCIUM 8.4 mg/dL (8.5-10.1); CHLORIDE 99 mmol/L (98-107); CREATININE 0.85 mg/dL (0.55-1.02)
[2020-10-12 07:13] LABS: ALKALINE PHOSPHATASE 122 U/L (45-117); BILIRUBIN,TOTAL 1.3 mg/dL (0.2-1.0); TOTAL PROTEIN 6.8 g/dL (6.4-8.2); TROPONIN I < 0.015 ng/mL (0.000-0.045)
--- NOTE | 2020-10-12 07:32 | NUR ---
ASSUMED PATIENT CARE AT THIS TIME, IN MY ROOM. PATIENT IN BED ON MONITOR. PATIENT STATES SHE WALKED HERE AND ARRIVED FOR CHEST PAIN, WEAKNESS, NOT FEELING WELL A FEW DAYS. DENIES PAST HX AND ON NO MEDS.
[2020-10-12 07:33] LABS: MD SCAN
[2020-10-12 08:06] VITALS: BP 132/78
--- NOTE | 2020-10-12 08:31 | NUR ---
patient began to get really angry, screaming out and wanting to stay. quieted her and got her a cab voucher for [facility]. let md know. left calmly to go get help there for life resources
== END 2020-10-12 08:33 | disposition home or self-care (01) ==
LOC: ED 07:45
DX: R07.89 Other chest pain (principal); R11.0 Nausea; R06.02 Shortness of breath; R94.31 Abnormal electrocardiogram [ECG] [EKG]; Z72.9 Problem related to lifestyle, unspecified; J44.9 Chronic obstructive pulmonary disease, unspecified; K21.9 Gastro-esophageal reflux disease without esophagitis; I10 Essential (primary) hypertension; Z90.710 Acquired absence of both cervix and uterus
CPT/HCPCS: 36415; 71045; 80053; 84484; 85025; 93005; 99285

== ENCOUNTER 2020-10-31 23:09 | Emergency (ER) | payer MEDICARE, MEDICAID ==
[~2020-10-31] VITALS: Ht 165.1 cm; Wt 53.2 kg
[~2020-10-31 23:09] MED LIST changes: -VANC1VIA3 PO; +VANC1VIA36 PO
[2020-10-31 23:31] VITALS: BP 99/61
--- NOTE | 2020-10-31 23:42 | NUR ---
PT CAME IN BY RAQUEL. PT IS COMPLAINING OF BEING DEPRESSED AND DRINKING MORE ALCOHOL SINCE SHE MOVED INTO THE [facility] 1 MONTH AGO. SHE SAYS HER DEPRESSION IS CAUSING HER TO WANT TO JUMP OFF THE BRIDGE. PT'S CLOTHES AND BELONGINGS REMOVED AND PLACED IN LOCKED BIN, PT IN SI SECURE ROOM WITH SITTER OUTSIDE.
[2020-10-31 23:57] LABS: MEAN CORPUSCULAR HEMOGLOBIN 30.2 pg (27.0-34.8); MEAN CORPUSCULAR HGB CONC 32.6 g/dL (32.4-35.8); MEAN PLATELET VOLUME 9.7 fL (7.4-10.4); PLATELET COUNT 257 x10^3/uL (130-400); RED BLOOD COUNT 4.03 x10^6/uL (3.82-5.3)
[2020-11-01 00:09] LABS: ALANINE AMINOTRANSFERASE 17 U/L (12-78); ALBUMIN 3.5 g/dL (3.4-5.0); ANION GAP 9 mmol/L (5-15); CALCIUM 8.9 mg/dL (8.5-10.1); CHLORIDE 106 mmol/L (98-107); CREATININE 0.85 mg/dL (0.55-1.02)
[2020-11-01 00:12] LABS: ALKALINE PHOSPHATASE 101 U/L (45-117); BILIRUBIN,TOTAL 0.3 mg/dL (0.2-1.0); SALICYLATE LEVEL < 1.7 mg/dL (2.8-20.0); TOTAL PROTEIN 6.6 g/dL (6.4-8.2)
[2020-11-01 00:32] LABS: MD YES
[2020-11-01 00:33] LABS: BAND#(MANUAL) 0.07 x10^3/uL; BANDS%(MANUAL) 1 % (0-7); BASOS#(MANUAL) 0.15 x10^3/uL (0-0.1); BASOS% (MANUAL) 2 % (0-1); EOS#(MANUAL) 0.22 x10^3/uL (0.0-0.4); EOS% (MANUAL) 3 % (1-7); LYMPH#(MANUAL) 3.21 x10^3/uL (1-3.4); LYMPHS% (MANUAL) 44 % (22-44); MONOS#(MANUAL) 0.44 x10^3/uL (0.3-2.7); MONOS% (MANUAL) 6 % (2-9); SEG#(MANUAL) 3.21 x10^3/uL (1.8-6.8); SEGS% (MANUAL) 44 % (42-75)
[2020-11-01 00:34] LABS: <PLATELET ESTIMATE> ADEQUATE; ANISOCYTOSIS 1+; MICROCYTOSIS 1+; OVALOCYTES 1+; PMNS WITH VACUOLES 1+
[2020-11-01 00:35] LABS: <PLT MORPHOLOGY> NORMAL PLT MORPH
--- NOTE | 2020-11-01 01:00 | NUR ---
PT IN SI SECURE ROOM WITH SITTER OUTSIDE THE DOOR, PT RESTING COMFORTABLY ON GURNEY
--- NOTE | 2020-11-01 02:10 | NUR ---
PT PROVIDED URINE SAMPLE, SAMPLE SENT TO LAB
--- NOTE | 2020-11-01 02:26 | NUR ---
PT'S BREATHERLIZER WAS 0.035, PT REQUESTED SOMETHING TO EAT, SANDWICH AND MILK GIVEN, PT RESTING COMFORTABLY ON GURNEY IN SI SECURE ROOM, SITTER OUTSIDE ROOM
[2020-11-01 02:27] LABS: AMPHETAMINE SCREEN, URINE Positive (Negative); BARBITURATE SCREEN, URINE Negative (Negative); BENZODIAZEPINE SCREEN, URINE Negative (Negative); CANNABINOID SCREEN, URINE Negative (Negative); COCAINE SCREEN, URINE Negative (Negative); METHADONE SCREEN, URINE Negative (Negative); OPIATE SCREEN, URINE Negative (Negative)
--- NOTE | 2020-11-01 03:57 | NUR ---
PT RESTING COMFORTABLY ON GURNEY, ROOM SI SECURE, SITTER OUTSIDE ROOM
--- NOTE | 2020-11-01 05:03 | NUR ---
PT RESTING COMFORTABLY ON GURNEY, ROOM SI SECURE, SITTER OUTSIDE ROOM
--- NOTE | 2020-11-01 06:45 | NUR ---
Report received from GRETCHEN Chakraborty and GRETCHEN Alaniz and care assumed. Pt lying on L side curled up with blanket on as this RN walked past room.
--- NOTE | 2020-11-01 07:20 | NUR ---
SOC called and updated to known hx of pt arrival and c/o. Ensured Telemedicine monitor in room and ready for SOC call, and pt aware of incoming call. Pt awake and able to respond appropriately.
--- NOTE | 2020-11-01 07:30 | NUR ---
Pt speaking with teledoctor at this time.
--- NOTE | 2020-11-01 07:45 | NUR ---
Pt breakfast brought in to bedside with cranberry juice and decaf coffee with cream and suger per pt request.
--- NOTE | 2020-11-01 07:59 | NUR ---
states pt is to be d/c'd today.
--- NOTE | 2020-11-01 08:20 | NUR ---
Meal removed with all items brought in counted out. Pt calm and cooperative, lying in bed.
== END 2020-11-01 08:58 | disposition home or self-care (01) ==
LOC: ED 11-01 07:34
DX: F10.220 Alcohol dependence with intoxication, uncomplicated (principal); F33.9 Major depressive disorder, recurrent, unspecified; I10 Essential (primary) hypertension; K21.9 Gastro-esophageal reflux disease without esophagitis; J44.9 Chronic obstructive pulmonary disease, unspecified; Y90.0 Blood alcohol level of less than 20 mg/100 ml
CPT/HCPCS: 36415; 80053; 80299; 80307; 80320; 80329; 85025; 99283; G0480

== ENCOUNTER 2020-11-24 04:52 | Emergency (ER) | payer MEDICARE, MEDICAID ==
[~2020-11-24] VITALS: Ht 165.1 cm; Wt 58.2 kg
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
--- NOTE | 2020-11-24 05:41 | NUR ---
PT WAS NOT ABLE TO PROVIDE A URINE SAMPLE AT THIS TIME
[2020-11-24 05:44] LABS: BASOPHILS % (AUTO) 1 % (0-1); EOSINOPHILS % (AUTO) 2 % (1-7); LYMPHOCYTES % (AUTO) 21 % (22-44); MEAN CORPUSCULAR HGB CONC 33.5 g/dL (32.4-35.8); MEAN PLATELET VOLUME 9.6 fL (7.4-10.4); MONOCYTES % (AUTO) 11 % (2-9); NEUTROPHILS % (AUTO) 65 % (42-75); PLATELET COUNT 214 x10^3/uL (130-400); RED BLOOD COUNT 4.37 x10^6/uL (3.82-5.3); RED CELL DISTRIBUTION WIDTH 17.4 % (9.6-15.2)
[2020-11-24 05:50] LABS: ALBUMIN 3.4 g/dL (3.4-5.0); ANION GAP 9 mmol/L (5-15); CALCIUM 8.9 mg/dL (8.5-10.1); CHLORIDE 105 mmol/L (98-107); CREATININE 0.82 mg/dL (0.55-1.02)
[2020-11-24 06:25] LABS: MICROSCOPIC INDICATED
--- NOTE | 2020-11-24 06:45 | NUR ---
RECEIVED REPORT FROM PINEDA. PT LAYING ON GURNEY WITH EYES CLOSED BUT RESPONDS APPROP TO STAFF, NAD, NO NEEDS AT THIS TIME, CALL LIGHT WITHIN REACH.
[2020-11-24 08:16] VITALS: BP 142/73
--- NOTE | 2020-11-24 08:29 | NUR ---
[facility] sow in [facility] - 11/24/20 at 0838 by MARGE Patient given discharge instructions and they have confirmed that they understand the instructions. Patient ambulatory with steady gait.
--- NOTE | 2020-11-24 08:30 | NUR ---
PT REFUSED TO PREPARE FOR DC & REFUSED TO SIGN DC INSTRUCTIONS, PT STATED "WELL YOU'RE GOING TO HAVE TO CALL [facility] TO TAKE ME TO NURSING HOME OR SOMETHING BECAUSE I'M NOT LEAVING. THERE'S SOMETHING WRONG WITH ME SO I'M NOT GETTING DRESSED." PT WOULD NOT ELABORATE & PT WAS TOLD SECURITY CAN ASSIST HER OUT IF SHE'D LIKE. PT THEN YELLED "GO AHEAD, BITCH!". SECURITY CALLED TO ESCORT PT TO EXIT WITH DC INSTRUCTIONS.
== END 2020-11-24 08:52 | disposition home or self-care (01) ==
LOC: ED 05:42
DX: Z00.00 Encounter for general adult medical examination without abnormal findings (principal); R11.0 Nausea; I10 Essential (primary) hypertension; K21.9 Gastro-esophageal reflux disease without esophagitis; J44.9 Chronic obstructive pulmonary disease, unspecified; I24.9 Acute ischemic heart disease, unspecified; R94.31 Abnormal electrocardiogram [ECG] [EKG]
CPT/HCPCS: 36415; 80048; 81001; 82040; 85025; 87086; 93005; 99284

== ENCOUNTER 2020-11-29 20:32 | Emergency (ER) | payer MEDICAID, MEDICARE ==
[~2020-11-29] VITALS: Ht 165.1 cm; Wt 50.0 kg
[2020-11-29 21:54] LABS: BASOPHILS % (AUTO) 1 % (0-1); EOSINOPHILS % (AUTO) 3 % (1-7); LYMPHOCYTES % (AUTO) 19 % (22-44); MEAN CORPUSCULAR HGB CONC 33.3 g/dL (32.4-35.8); MEAN PLATELET VOLUME 10.4 fL (7.4-10.4); MONOCYTES % (AUTO) 10 % (2-9); NEUTROPHILS % (AUTO) 67 % (42-75); PLATELET COUNT 189 x10^3/uL (130-400); RED BLOOD COUNT 4.58 x10^6/uL (3.82-5.3); RED CELL DISTRIBUTION WIDTH 17.3 % (9.6-15.2)
[2020-11-29 22:03] LABS: ALBUMIN 3.6 g/dL (3.4-5.0); ANION GAP 8 mmol/L (5-15); CALCIUM 9.1 mg/dL (8.5-10.1); CHLORIDE 103 mmol/L (98-107); CREATININE 0.97 mg/dL (0.55-1.02)
--- NOTE | 2020-11-29 22:40 | NUR ---
PT. TO ROOM FROM LOBBY AT THIS TIME.
--- NOTE | 2020-11-29 22:55 | NUR ---
PT. AMBULATORY DOWN CERON WITH ASSIST FOR URINE SAMPLE.
--- NOTE | 2020-11-29 23:06 | NUR ---
PT. STATES HAS BEEN FEELING WEAK AND TIRED X [address] W[address]. POOR HIST[address]IAN. DR. HERNÁNDEZ TO BS TO EVAL PT. AND DISCUSS POC.
[2020-11-29 23:08] LABS: MICROSCOPIC AUTO
--- NOTE | 2020-11-29 23:20 | NUR ---
PT. REQUESTING FOOD. OK PER DR. HERNÁNDEZ.
[2020-11-30 00:02] LABS: BILIRUBIN, DIRECT 0.4 mg/dL (0.1-0.2); BILIRUBIN,INDIRECT 0.7 mg/dL (0.0-2.0); BILIRUBIN,TOTAL 1.1 mg/dL (0.2-1.0)
[2020-11-30 00:03] LABS: ALANINE AMINOTRANSFERASE 30 U/L (12-78); ALKALINE PHOSPHATASE 105 U/L (45-117); TOTAL PROTEIN 7.3 g/dL (6.4-8.2)
[2020-11-30 00:04] VITALS: BP 132/63
--- NOTE | 2020-11-30 00:42 | NUR ---
Patient/Caregiver given discharge instructions and they have confirmed that they understand the instructions. Patient ambulatory with steady gait.
== END 2020-11-30 00:44 | disposition home or self-care (01) ==
LOC: ED 22:39
DX: R53.1 Weakness (principal); R42 Dizziness and giddiness; F10.10 Alcohol abuse, uncomplicated; J44.9 Chronic obstructive pulmonary disease, unspecified; K21.9 Gastro-esophageal reflux disease without esophagitis; I24.9 Acute ischemic heart disease, unspecified; F17.200 Nicotine dependence, unspecified, uncomplicated; Y90.0 Blood alcohol level of less than 20 mg/100 ml
CPT/HCPCS: 36415; 71045; 80048; 80076; 81001; 82040; 85025; 87086; 93005; 99285

== ENCOUNTER 2020-12-22 22:19 | Emergency (ER) | payer MEDICARE ==
[~2020-12-22] VITALS: Ht 165.1 cm; Wt 59.0 kg
[2020-12-22 22:55] LABS: BASOPHILS % (AUTO) 1 % (0-1); EOSINOPHILS % (AUTO) 5 % (1-7); LYMPHOCYTES % (AUTO) 33 % (22-44); MEAN CORPUSCULAR HEMOGLOBIN 31.9 pg (27.0-34.8); MEAN CORPUSCULAR HGB CONC 33.3 g/dL (32.4-35.8); MEAN PLATELET VOLUME 10.6 fL (7.4-10.4); MONOCYTES % (AUTO) 8 % (2-9); NEUTROPHILS % (AUTO) 53 % (42-75); PLATELET COUNT 204 x10^3/uL (130-400); RED BLOOD COUNT 4.36 x10^6/uL (3.82-5.3)
[2020-12-22 23:08] LABS: ALBUMIN 3.5 g/dL (3.4-5.0); ANION GAP 6 mmol/L (5-15); CALCIUM 9.3 mg/dL (8.5-10.1); CHLORIDE 110 mmol/L (98-107); CREATININE 0.97 mg/dL (0.55-1.02)
[2020-12-22 23:11] LABS: TROPONIN I < 0.015 ng/mL (0.000-0.045)
[2020-12-22] MEDS ORDERED: DIPHENHYDRAMINE 25 MG CAPSULE ONE (23:58)
[2020-12-23] MEDS ORDERED: DIPHENHYDRAMINE 25 MG CAPSULE PO ONE
[2020-12-23 00:03] VITALS: BP 133/74
== END 2020-12-23 00:19 | disposition home or self-care (01) ==
LOC: ED 22:54
DX: R07.89 Other chest pain (principal); L29.9 Pruritus, unspecified; F15.129 Other stimulant abuse with intoxication, unspecified; R11.2 Nausea with vomiting, unspecified; R06.02 Shortness of breath; R94.31 Abnormal electrocardiogram [ECG] [EKG]; J44.9 Chronic obstructive pulmonary disease, unspecified; K21.9 Gastro-esophageal reflux disease without esophagitis; F17.200 Nicotine dependence, unspecified, uncomplicated
CPT/HCPCS: 36415; 71045; 80048; 82040; 84484; 85025; 93005; 99285; Q0163

== ENCOUNTER 2021-01-15 18:42 | Emergency (ER) | payer MEDICARE ==
[~2021-01-15] VITALS: Ht 165.1 cm; Wt 56.8 kg
[~2021-01-15 18:42] MED LIST changes: +OLAN5TAB69 PO; -OLAN5TAB9 PO
[2021-01-15 18:44] VITALS: BP 139/83
== END 2021-01-15 19:41 | disposition home or self-care (01) ==
LOC: ED 19:14
DX: H69.82 Other specified disorders of Eustachian tube, left ear (principal); K21.9 Gastro-esophageal reflux disease without esophagitis; J44.9 Chronic obstructive pulmonary disease, unspecified; I25.10 Atherosclerotic heart disease of native coronary artery without angina pectoris
CPT/HCPCS: 99282

== ENCOUNTER 2021-03-08 05:27 | Emergency (ER) | payer MEDICARE ==
[~2021-03-08] VITALS: Ht 167.6 cm; Wt 58.0 kg
[2021-03-08 05:30] VITALS: BP 108/64
[2021-03-08 08:50] LABS: ALANINE AMINOTRANSFERASE 30 U/L (12-78); ALBUMIN 3.8 g/dL (3.4-5.0); ANION GAP 9 mmol/L (5-15); CALCIUM 8.9 mg/dL (8.5-10.1); CHLORIDE 104 mmol/L (98-107); CREATININE 0.84 mg/dL (0.55-1.02)
[2021-03-08 08:51] LABS: BASOPHILS % (AUTO) 1 % (0-1); EOSINOPHILS % (AUTO) 3 % (1-7); LYMPHOCYTES % (AUTO) 23 % (22-44); MEAN CORPUSCULAR HEMOGLOBIN 31.3 pg (27.0-34.8); MEAN CORPUSCULAR HGB CONC 33.6 g/dL (32.4-35.8); MEAN PLATELET VOLUME 9.4 fL (7.4-10.4); MONOCYTES % (AUTO) 11 % (2-9); NEUTROPHILS % (AUTO) 61 % (42-75); PLATELET COUNT 263 x10^3/uL (130-400); RED BLOOD COUNT 4.24 x10^6/uL (3.82-5.3); RED CELL DISTRIBUTION WIDTH 14.4 % (9.6-15.2)
[2021-03-08 08:53] LABS: ALKALINE PHOSPHATASE 93 U/L (45-117); BILIRUBIN,TOTAL 1.2 mg/dL (0.2-1.0); TOTAL PROTEIN 7.7 g/dL (6.4-8.2)
--- NOTE | 2021-03-08 09:10 | NUR ---
NO ANSWER IN LOBBY
--- NOTE | 2021-03-08 09:21 | NUR ---
NO ANSWER IN LOBBY
--- NOTE | 2021-03-08 09:40 | NUR ---
NO ANSWER IN LOBBY
== END 2021-03-08 09:41 | disposition left against medical advice (07) ==
LOC: ED 06:42
DX: M79.671 Pain in right foot (principal); M79.672 Pain in left foot; R53.1 Weakness; K21.9 Gastro-esophageal reflux disease without esophagitis; J44.9 Chronic obstructive pulmonary disease, unspecified; I25.10 Atherosclerotic heart disease of native coronary artery without angina pectoris
CPT/HCPCS: 36415; 80053; 83690; 85025; 99283